=== PATIENT | female | born 1940 | race Caucasian/White ===

== ENCOUNTER 2021-06-22 09:03 | Outpatient (REF) | payer MEDICARE, SELFPAY ==
[2021-06-22 09:35] LABS: MANUAL DIFF FLAG NO
[2021-06-22 09:43] LABS: Basophils Absolute Auto 0.1 X10*3/uL (0.0-0.2); Basophils Percent Auto 0.9 % (0-2); Eosinophils Absolute Auto 0.3 X10*3/uL (0.0-0.4); Eosinophils Percent Auto 4.3 % (0-4); Hematocrit 44.1 % (37.0-47.0); Hemoglobin 14.8 g/dl (12.0-16.0); Imm Gran Abs Auto 0.02 X10*3/uL (0.00-0.03); Imm Gran Pct Auto 0.3 % (0.0-0.4); Lymphocytes Absolute Auto 1.6 X10*3/uL (1.2-4.9); Lymphocytes Percent Auto 22.9 % (20-40); Mean Corpuscular HGB Conc 33.6 g/dl (31.0-35.0); Mean Corpuscular Volume 95.5 fL (80.0-98.0); Mean Platelet Volume 9.6 fL (9.4-12.3); Monocytes Absolute Auto 0.5 X10*3/uL (0.1-1.2); Neutrophils Absolute Auto 4.6 x10*3/uL (2.0-8.3); Neutrophils Percent Auto 64.6 % (45-73); Platelet Count 290 X10*3/uL (160-400); Red Blood Count 4.62 X10*6/uL (4.20-5.50); Red Cell Distribution Width 12.7 % (11.0-16.0)
[2021-06-22 09:53] LABS: Estimated Average Glucose 111 mg/dL; Hemoglobin A1c % 5.5 %
[2021-06-22 10:07] LABS: Anion Gap 12 (12-20); Blood Urea Nitrogen 15 mg/dL (9-16); Carbon Dioxide 30 mmol/L (22-29); Chloride 101 mmol/L (96-108); Potassium 4.5 mmol/L (3.3-5.1); Sodium 138 mmol/L (135-145)
[2021-06-22 10:08] LABS: Alanine Aminotransferase 10 U/L (0-31); Albumin Level 4.1 g/dL (3.5-5.0); Alkaline Phosphatase 68 U/L (39-117); Aspartate Amino Transferase 17 U/L (5-31); Bilirubin Total 0.7 mg/dL (0.0-1.0); Calcium 10.6 mg/dL (8.4-10.2); Cholesterol 185 mg/dL; Estimated Glomerular Filt Rate 56; Glucose Fasting 114 mg/dL (60-99); HDL Cholesterol 48 mg/dL; LDL Cholesterol Calculated 117 mg/dl; Total Protein 6.7 g/dL (6.5-8.0); Triglycerides 102 mg/dL
[2021-06-22 10:27] LABS: TSH reflex Free T4 1.45 uIU/mL (0.32-4.0); Vitamin D 25-OH Total 28.6 ng/mL (>30)
[2021-06-22 10:47] LABS: Appearance Urine HAZY; Color Urine YELLOW; Glucose Urine UA NEG (NEG); Leukocyte Esterase Urine NEG (NEG); Nitrite Urine NEG (NEG); Specific Gravity - Urine 1.025 (1.005-1.025); UACC Culture Trigger NO; Urine Blood 1+ (NEG); Urine Ketones NEG (NEG); Urine Protein TRACE MG/DL (NEG-TRACE)
[2021-06-22 11:00] LABS: WBC Urine 0-2 /HPF (0-4)
[2021-06-22 11:01] LABS: Bacteria Urine 3+ /LPF; Squamous Epithelial Cell Urine 4+ /LPF
[2021-06-22 11:11] LABS: Creatinine Urine 253.24 mg/dL; Microalbum/Creatinine Ratio Ur 19.7 ug/mg cr
== END 2021-06-22 09:04 | disposition home or self-care (01) ==
LOC: HO.LAB 09:03
PROVIDERS: PCP Internal Medicine; Visit Provider Internal Medicine
DX: I10 Essential (primary) hypertension (principal); E78.00 Pure hypercholesterolemia, unspecified; E11.9 Type 2 diabetes mellitus without complications; E55.9 Vitamin D deficiency, unspecified
CPT/HCPCS: 36415; 80053; 80061; 81001; 82043; 82306; 83036; 84443; 85025

== ENCOUNTER 2021-07-29 15:11 | Outpatient (REF) | payer MEDICARE, SELFPAY ==
--- NOTE | ~2021-07-29 | XR_ITS ---
EXAMINATION: XR KNEE, RIGHT CLINICAL INFORMATION: Sprain COMPARISON: None TECHNIQUE: 4 view right knee of the right knee. FINDINGS: There is osteopenia visualized bones. No acute fracture or dislocation is evident. There is narrowing of the medial joint space compartment. There is spurring undersurface of the patella without significant narrowing of the facet joints. There is a small suprapatellar effusion. There is some edematous change seen about the anterior aspect of the distal thigh. XR/XR knee RT 3V IMPRESSION: Mild degenerative change of the right knee involving the medial joint space compartment and patellofemoral joint with small right knee effusion.
== END 2021-07-29 15:12 | disposition home or self-care (01) ==
LOC: HO.XRAY 15:11
PROVIDERS: Visit Provider Internal Medicine
DX: S83.91XA Sprain of unspecified site of right knee, initial encounter (principal)
CPT/HCPCS: 73562

== ENCOUNTER 2022-03-16 08:42 | Outpatient (REF) | payer MEDICARE, SELFPAY ==
--- NOTE | ~2022-03-16 | XR_ITS ---
EXAMINATION: XR HAND, RIGHT CLINICAL INFORMATION: Right finger pain. COMPARISON: None TECHNIQUE: PA, lateral, and oblique views of the right hand. FINDINGS: The bones and soft tissues are normal. No fracture. Alignment is anatomic. There is mild loss of PIP and DIP joints with periarticular spurring 2nd and 3rd digits. No acute fracture or dislocation seen. No soft tissue swelling. XR/XR hand RT min 3V IMPRESSION: Degenerative arthritic changes PIP and DIP joints all digits with periapical spurring DIP joint 2nd and 3rd digits and PIP joint 1st digit.
[2022-03-16 08:57] LABS: MANUAL DIFF FLAG NO
[2022-03-16 09:28] LABS: Basophils Absolute Auto 0.1 X10*3/uL (0.0-0.2); Eosinophils Absolute Auto 0.3 X10*3/uL (0.0-0.4); Eosinophils Percent Auto 4.8 % (0-4); Hematocrit 43.9 % (37.0-47.0); Hemoglobin 14.6 g/dl (12.0-16.0); Imm Gran Abs Auto 0.01 X10*3/uL (0.00-0.03); Imm Gran Pct Auto 0.2 % (0.0-0.4); Lymphocytes Absolute Auto 1.8 X10*3/uL (1.2-4.9); Lymphocytes Percent Auto 28.3 % (20-40); Mean Corpuscular HGB Conc 33.3 g/dl (31.0-35.0); Mean Corpuscular Hemoglobin 31.3 pg (27.0-33.0); Mean Corpuscular Volume 94.2 fL (80.0-98.0); Mean Platelet Volume 10.2 fL (9.4-12.3); Monocytes Absolute Auto 0.4 X10*3/uL (0.1-1.2); Monocytes Percent Auto 5.8 % (2-11); Neutrophils Absolute Auto 3.7 x10*3/uL (2.0-8.3); Neutrophils Percent Auto 59.9 % (45-73); Platelet Count 290 X10*3/uL (160-400); Red Blood Count 4.66 X10*6/uL (4.20-5.50); Red Cell Distribution Width 13.5 % (11.0-16.0); White Blood Count 6.2 X10*3/uL (4.8-10.8)
[2022-03-16 09:31] LABS: Estimated Average Glucose 114 mg/dL; Hemoglobin A1c % 5.6 %
[2022-03-16 09:53] LABS: Alanine Aminotransferase 10 U/L (0-31); Albumin Level 3.9 g/dL (3.5-5.0); Alkaline Phosphatase 56 U/L (39-117); Anion Gap 16 (12-20); Aspartate Amino Transferase 18 U/L (5-31); Bilirubin Total 0.4 mg/dL (0.0-1.0); Blood Urea Nitrogen 10 mg/dL (9-16); Calcium 10.1 mg/dL (8.4-10.2); Carbon Dioxide 26 mmol/L (22-29); Chloride 104 mmol/L (96-108); Cholesterol 221 mg/dL; Estimated Glomerular Filt Rate > 60; Glucose Fasting 98 mg/dL (60-99); HDL Cholesterol 50 mg/dL; LDL Cholesterol Calculated 149 mg/dl; Potassium 3.9 mmol/L (3.3-5.1); Sodium 142 mmol/L (135-145); Total Protein 6.3 g/dL (6.5-8.0); Triglycerides 113 mg/dL
[2022-03-16 10:14] LABS: Free T4 (Free Thyroxine) 0.86 ng/dL (0.71-1.85); Thyroid Stimulating Hormone 26.08 uIU/mL (0.32-4.0); Vitamin D 25-OH Total 27.9 ng/mL (>30)
[2022-03-16 10:44] LABS: Appearance Urine Cloudy; Color Urine Yellow; Glucose Urine UA Negative (Negative); Leukocyte Esterase Urine Trace (Negative); Nitrite Urine Negative (Negative); PH 6.5 (5.0-9.0); Specific Gravity - Urine 1.015 (1.005-1.025); UMIC TRIGGER UACC YES; Urine Blood Trace (Negative); Urine Ketones Negative (Negative); Urine Protein Trace mg/dL (Neg-Trace)
[2022-03-16 10:46] LABS: Bacteria Urine 2+ (None Seen); Hyaline Casts Urine 0-2 /LPF (0-2); Squamous Epithelial Cell Urine >20 /HPF (0-2); WBC Urine 0-5 /HPF (0-5)
[2022-03-16 11:36] LABS: Microalbum/Creatinine Ratio Ur 18.2 ug/mg cr
== END 2022-03-16 08:43 | disposition home or self-care (01) ==
LOC: HO.LAB 08:42
PROVIDERS: PCP Internal Medicine; Visit Provider Internal Medicine
DX: I10 Essential (primary) hypertension (principal); E11.9 Type 2 diabetes mellitus without complications; E03.9 Hypothyroidism, unspecified; E78.00 Pure hypercholesterolemia, unspecified; E55.9 Vitamin D deficiency, unspecified; M79.644 Pain in right finger(s)
CPT/HCPCS: 36415; 73130; 80053; 80061; 81001; 82043; 82306; 83036; 84439; 84443; 85025

== ENCOUNTER 2022-08-05 08:22 | Outpatient (REF) | payer MEDICARE, SELFPAY ==
[2022-08-05 08:41] LABS: MANUAL DIFF FLAG NO
[2022-08-05 09:24] LABS: Basophils Absolute Auto 0.1 X10*3/uL (0.0-0.2); Basophils Percent Auto 1.6 % (0-2); Eosinophils Absolute Auto 0.4 X10*3/uL (0.0-0.4); Eosinophils Percent Auto 5.4 % (0-4); Hematocrit 45.4 % (37.0-47.0); Hemoglobin 15.2 g/dl (12.0-16.0); Imm Gran Abs Auto 0.02 X10*3/uL (0.00-0.03); Imm Gran Pct Auto 0.3 % (0.0-0.4); Lymphocytes Absolute Auto 2.1 X10*3/uL (1.2-4.9); Lymphocytes Percent Auto 29.9 % (20-40); Mean Corpuscular HGB Conc 33.5 g/dl (31.0-35.0); Mean Corpuscular Hemoglobin 32.1 pg (27.0-33.0); Mean Platelet Volume 10.3 fL (9.4-12.3); Monocytes Absolute Auto 0.5 X10*3/uL (0.1-1.2); Monocytes Percent Auto 6.7 % (2-11); Neutrophils Absolute Auto 3.8 x10*3/uL (2.0-8.3); Neutrophils Percent Auto 56.1 % (45-73); Platelet Count 296 X10*3/uL (160-400); Red Blood Count 4.73 X10*6/uL (4.20-5.50); Red Cell Distribution Width 14.3 % (11.0-16.0); White Blood Count 6.9 X10*3/uL (4.8-10.8)
[2022-08-05 09:31] LABS: Estimated Average Glucose 114 mg/dL; Hemoglobin A1C 150.2598 umol/L; Hemoglobin A1c % 5.6 %
[2022-08-05 10:01] LABS: Alanine Aminotransferase 12 U/L (0-31); Alkaline Phosphatase 65 U/L (39-117); Anion Gap 15 (12-20); Aspartate Amino Transferase 21 U/L (5-31); Bilirubin Total 0.7 mg/dL (0.0-1.0); Blood Urea Nitrogen 9 mg/dL (9-16); Calcium 9.7 mg/dL (8.4-10.2); Carbon Dioxide 27 mmol/L (22-29); Chloride 105 mmol/L (96-108); Cholesterol 193 mg/dL; Estimated Glomerular Filt Rate > 60; Glucose Fasting 109 mg/dL (60-99); HDL Cholesterol 50 mg/dL; LDL Cholesterol Calculated 125 mg/dl; Sodium 143 mmol/L (135-145); Total Protein 6.5 g/dL (6.5-8.0); Triglycerides 93 mg/dL
[2022-08-05 10:18] LABS: Free T4 (Free Thyroxine) 1.16 ng/dL (0.71-1.85); Thyroid Stimulating Hormone 5.79 uIU/mL (0.32-4.0); Vitamin D 25-OH Total 29.1 ng/mL (>30)
== END 2022-08-05 08:23 | disposition home or self-care (01) ==
LOC: HO.LAB 08:22
PROVIDERS: PCP Internal Medicine; Visit Provider Internal Medicine
DX: E03.9 Hypothyroidism, unspecified (principal); E55.9 Vitamin D deficiency, unspecified; E78.00 Pure hypercholesterolemia, unspecified; I10 Essential (primary) hypertension; E11.9 Type 2 diabetes mellitus without complications
CPT/HCPCS: 36415; 80053; 80061; 82306; 83036; 84439; 84443; 85025

== ENCOUNTER 2022-11-29 09:14 | Outpatient (REF) | payer MEDICARE, SELFPAY ==
[2022-11-29 09:33] LABS: MANUAL DIFF FLAG NO
[2022-11-29 10:49] LABS: Basophils Absolute Auto 0.1 X10*3/uL (0.0-0.2); Basophils Percent Auto 1.1 % (0-2); Eosinophils Absolute Auto 0.3 X10*3/uL (0.0-0.4); Eosinophils Percent Auto 4.4 % (0-4); Hematocrit 46.8 % (37.0-47.0); Hemoglobin 15.3 g/dl (12.0-16.0); Imm Gran Abs Auto 0.02 X10*3/uL (0.00-0.03); Imm Gran Pct Auto 0.3 % (0.0-0.4); Lymphocytes Absolute Auto 2.2 X10*3/uL (1.2-4.9); Lymphocytes Percent Auto 30.3 % (20-40); Mean Corpuscular HGB Conc 32.7 g/dl (31.0-35.0); Mean Corpuscular Hemoglobin 31.5 pg (27.0-33.0); Mean Corpuscular Volume 96.5 fL (80.0-98.0); Mean Platelet Volume 10.3 fL (9.4-12.3); Monocytes Absolute Auto 0.4 X10*3/uL (0.1-1.2); Monocytes Percent Auto 5.9 % (2-11); Neutrophils Absolute Auto 4.1 x10*3/uL (2.0-8.3); Platelet Count 274 X10*3/uL (160-400); Red Blood Count 4.85 X10*6/uL (4.20-5.50); Red Cell Distribution Width 13.2 % (11.0-16.0); White Blood Count 7.1 X10*3/uL (4.8-10.8)
[2022-11-29 10:54] LABS: Estimated Average Glucose 105 mg/dL; Hemoglobin A1c % 5.3 %
[2022-11-29 12:20] LABS: Alanine Aminotransferase 11 U/L (0-31); Albumin Level 3.9 g/dL (3.5-5.0); Alkaline Phosphatase 59 U/L (39-117); Anion Gap 12 (12-20); Aspartate Amino Transferase 19 U/L (5-31); Bilirubin Total 0.7 mg/dL (0.0-1.0); Blood Urea Nitrogen 9 mg/dL (9-16); Calcium 9.8 mg/dL (8.4-10.2); Carbon Dioxide 28 mmol/L (22-29); Chloride 104 mmol/L (96-108); Cholesterol 162 mg/dL; Estimated Glomerular Filt Rate > 60; Glucose Fasting 99 mg/dL (60-99); HDL Cholesterol 47 mg/dL; LDL Cholesterol Calculated 96 mg/dl; Potassium 3.7 mmol/L (3.3-5.1); Sodium 140 mmol/L (135-145); Total Protein 6.7 g/dL (6.5-8.0); Triglycerides 98 mg/dL
[2022-11-29 12:27] LABS: Free T4 (Free Thyroxine) 1.18 ng/dL (0.71-1.85); Thyroid Stimulating Hormone 5.98 uIU/mL (0.32-4.0); Vitamin D 25-OH Total 38.4 ng/mL (>30)
[2022-11-29 13:12] LABS: Appearance Urine Cloudy; Color Urine Yellow; Glucose Urine UA Negative (Negative); Leukocyte Esterase Urine Negative (Negative); Nitrite Urine Negative (Negative); PH >= 9.0 (5.0-9.0); Urine Blood Negative (Negative); Urine Ketones Negative (Negative); Urine Protein Negative (Neg-Trace)
== END 2022-11-29 09:15 | disposition home or self-care (01) ==
LOC: HO.LAB 09:14
PROVIDERS: PCP Internal Medicine; Visit Provider Internal Medicine
DX: E55.9 Vitamin D deficiency, unspecified (principal); I10 Essential (primary) hypertension; E03.9 Hypothyroidism, unspecified; R30.0 Dysuria; E11.9 Type 2 diabetes mellitus without complications; E78.00 Pure hypercholesterolemia, unspecified
CPT/HCPCS: 36415; 80053; 80061; 81003; 82306; 83036; 84439; 84443; 85025

== ENCOUNTER 2023-04-03 10:19 | Outpatient (REF) | payer MEDICARE, SELFPAY ==
[2023-04-03 10:43] LABS: MANUAL DIFF FLAG NO
[2023-04-03 11:10] LABS: Basophils Absolute Auto 0.1 X10*3/uL (0.0-0.2); Eosinophils Absolute Auto 0.3 X10*3/uL (0.0-0.4); Eosinophils Percent Auto 4.3 % (0-4); Hematocrit 45.8 % (37.0-47.0); Imm Gran Abs Auto 0.01 X10*3/uL (0.00-0.03); Imm Gran Pct Auto 0.1 % (0.0-0.4); Lymphocytes Absolute Auto 2.1 X10*3/uL (1.2-4.9); Lymphocytes Percent Auto 27.8 % (20-40); Mean Corpuscular HGB Conc 32.8 g/dl (31.0-35.0); Mean Corpuscular Hemoglobin 31.8 pg (27.0-33.0); Mean Platelet Volume 10.6 fL (9.4-12.3); Monocytes Absolute Auto 0.4 X10*3/uL (0.1-1.2); Monocytes Percent Auto 5.6 % (2-11); Neutrophils Absolute Auto 4.7 x10*3/uL (2.0-8.3); Neutrophils Percent Auto 61.2 % (45-73); Platelet Count 254 X10*3/uL (160-400); Red Blood Count 4.72 X10*6/uL (4.20-5.50); Red Cell Distribution Width 12.9 % (11.0-16.0); White Blood Count 7.7 X10*3/uL (4.8-10.8)
[2023-04-03 11:18] LABS: Estimated Average Glucose 108 mg/dL; Hemoglobin A1c % 5.4 % (<6.0)
[2023-04-03 11:54] LABS: Appearance Urine Clear; Color Urine Yellow; Glucose Urine UA Negative (Negative); Leukocyte Esterase Urine Negative (Negative); Nitrite Urine Negative (Negative); PH 7.5 (5.0-9.0); Specific Gravity - Urine 1.015 (1.005-1.025); Urine Blood Negative (Negative); Urine Ketones Negative (Negative); Urine Protein Negative (Neg-Trace)
[2023-04-03 11:56] LABS: B Type Natriuretic Peptide 105 pg/mL (<100)
[2023-04-03 11:57] LABS: Alanine Aminotransferase 11 U/L (0-31); Albumin Level 3.9 g/dL (3.5-5.0); Alkaline Phosphatase 55 U/L (39-117); Anion Gap 12 (12-20); Aspartate Amino Transferase 18 U/L (5-31); Bilirubin Total 0.4 mg/dL (0.0-1.0); Blood Urea Nitrogen 17 mg/dL (9-16); Calcium 9.8 mg/dL (8.4-10.2); Carbon Dioxide 27 mmol/L (22-29); Chloride 104 mmol/L (96-108); Estimated Glomerular Filt Rate > 60; Glucose Fasting 102 mg/dL (60-99); Potassium 3.5 mmol/L (3.3-5.1); Sodium 139 mmol/L (135-145); Total Protein 6.6 g/dL (6.5-8.0)
[2023-04-03 12:15] LABS: Free T4 (Free Thyroxine) 1.21 ng/dL (0.71-1.85); Thyroid Stimulating Hormone 0.63 uIU/mL (0.32-4.0); Vitamin D 25-OH Total 34.5 ng/mL (>30)
== END 2023-04-03 10:20 | disposition home or self-care (01) ==
LOC: HO.LAB 10:19
PROVIDERS: PCP Internal Medicine; Visit Provider Internal Medicine
DX: R30.0 Dysuria (principal); E03.9 Hypothyroidism, unspecified; R60.9 Edema, unspecified; I10 Essential (primary) hypertension; E78.00 Pure hypercholesterolemia, unspecified; E55.9 Vitamin D deficiency, unspecified; E11.9 Type 2 diabetes mellitus without complications
CPT/HCPCS: 36415; 80053; 81003; 82306; 83036; 83880; 84439; 84443; 85025

== ENCOUNTER 2023-04-12 12:14 | Outpatient (AMB) | payer MEDICARE, SELFPAY ==
[2023-04-12 12:16] VITALS: BP 120/84; PULSE 60; O2SAT 98; BMI 35.1
--- NOTE | 2023-04-12 12:16 | A.OFFPC_ITS ---
Vital Signs 04/12/23 12:16 Height 5 ft 6 in Weight 217 lb 4 oz BMI 35.1 BP 120/84 Blood Pressure Location Lt brachial Position Sitting Pulse 60 Pulse Source Pulse Oximeter Pulse Oximetry (%) 98 Oxygen Delivery Method Room Air Intake Visit Reasons: F/Up hyperlipidemia, HTN, hypothyroidism Freight Rate Clerk Required: No Accompanied by: Self / Same As Patient Allergies acetaminophen [Percocet] Allergy (Unknown, Verified 04/12/23 12:30) Unknown oxycodone [Percocet] Allergy (Unknown, Verified 04/12/23 12:30) Unknown penicillin V Allergy (Unknown, Verified 04/12/23 12:30) Unknown Medication List - Last Reconciled 04/12/23 by Hector Phelps MD cholecalciferol (vitamin D3) 50 mcg PO DAILY 90 days levothyroxine 125 mcg PO QAM 90 days lisinopril 5 mg PO DAILY 90 days simvastatin 20 mg PO BEDTIME 90 days terconazole 0.4% 1 appful vaginal BEDTIME 7 days triamterene-hydrochlorothiazid 75-50 mg 0.5 tabs PO QAM 90 days Tobacco use date assessed: 04/12/23 Fall risk assessment: No Falls in past year Last assessed Fall Risk: 04/12/23 Dental Screening Dental Screen Date: 04/12/23 Did you have a dental visit in the last 12 months?: No Did you have a dental problem in the last 6 months where you did not have access to dental care?: No Was dental information given to patient?: No HPI F/Up hyperlipidemia, HTN, hypothyroidism HPI Details Patient comes in today for her follow up visit States that she feels okay She denies any headaches or dizziness Denies any chest pains, no SOB No nausea/vomiting, no abdominal pain No change in bowel habits noted Had her follow up labs done last week - to discuss her results States that her daughter helps her now with her meals and cooks most of her meals and prepares her food for her [facility] Medical History Memory loss or impairment Obesity (BMI 30-39.9) Obstructive sleep apnea Acquired hypothyroidism Benign essential hypertension Pure hypercholesterolemia Vitamin D deficiency Hypothyroidism Hyperlipidemia Diabetes mellitus Hypertension Surgical History History of tonsillectomy History of laparoscopic cholecystectomy Family History Father Medical history unknown Mother Medical history unknown Other Substance abuse Social History Housing: Apartment Alcohol intake: current Alcohol intake frequency: 0-2 drinks per day Alcohol type: wine Patient Tobacco Use Status: Former Tobacco user e-Cigarette/Vaping Use: Never Used Second Hand Smoke Exposure: Yes service: No Current occupational status: retired Cognitive needs: No Hearing needs: No Vision needs: No Questionnaire PHQ-9 Over the last 2 weeks, how often have you been bothered by any of the following problems? 1. Little interest or pleasure in doing things: not at all 2. Feeling down, depressed, or hopeless: not at all 3. Trouble falling or staying asleep, or sleeping too much: not at all 4. Feeling tired or having little energy: not at all 5. Poor appetite or overeating: not at all 6. Feeling bad about yourself - or that you are a failure or have let yourself or your family down: not at all 7. Trouble concentrating on things, such as reading the newspaper or watching television: not at all 8. Moving or speaking so slowly that other people could have noticed. Or the opposite - being so fidgety or restless that you have been moving around a lot more than usual: not at all 9. Thoughts that you would be better off or of hurting yourself in some way: not at all Total score: 0 Depression Screening Interpretation: Negative Depression Screening Done: Yes [id number] - PHQ-9 Billing: Yes Source: Developed by Drs. Mario Thomas, Soni Guthrie, Adrian Villa and colleagues, with an educational suraj from [employer]. Thrive Questionnaire Date Thrive assessed: 04/12/23 I am a: Patient Within the past 12 months, did the food you bought not last and you didn't have the money to get more?: Never true Within the past 12 months, did you worry whether your food would run out before you got money to buy more?: Never true Do you have trouble paying for medicines?: No Do you have trouble getting transportation to medical appointments?: No Do you have trouble paying your heating and electricity bill?: No Do you have trouble taking care of your child, family member or friend?: No Do you have trouble with day-to-day activities such as bathing, preparing meals, shopping, managing finances, etc.?: No Are you currently unemployed and looking for a job?: No Are you interested in more education?: No Please select the resources that you would like help with: None Currently or been in a relationship where the following occur: no concerns reported AUDIT C Alcohol Use Questionnaire (AUDIT-C) 1. How often do you have a drink containing alcohol?: 4 or more times a week 2. How many drinks containing alcohol do you have on a typical day when you are drinking?: 1 or 2 3. How often do you have six or more drinks on one occasion?: Never Total Score: 4 Score Reviewed/Action Taken: Yes DILLON-7 AMB Questionnaire DILLON-7 Date DILLON - 7 assessed: 04/12/23 Feeling nervous, anxious, or on edge: 0 = Not at all Not being able to stop or control worryin = Not at all Worrying too much about different things: 0 = Not at all Trouble relaxin = Not at all Being so restless that it is hard to sit still: 0 = Not at all Becoming easily annoyed or irritable: 0 = Not at all Feeling afraid as if something awful might happen: 0 = Not at all Total DILLON-7 score (0-4 normal; 5-9 mild; 10-14 moderate; 15-21 severe): 0 Source: Developed by Drs. Mario Thomas, Soni Guthrie, Adrian Villa and colleagues, with an educational suraj from [employer]. Review of Systems Const Denies chills, Denies fatigue, Denies fever(s) and Denies headache(s) ENT Denies dysphagia, Denies dizziness, Denies otalgia, Denies headache(s), Denies odynophagia and Denies sore throat Card Denies chest pain, Denies palpitations and Denies dyspnea Resp Denies cough and Denies dyspnea GI Denies abdominal pain, Denies constipation, Denies dysphagia, Denies heartburn, Denies diarrhea, Denies nausea, Denies odynophagia and Denies vomiting Denies difficulty voiding, Denies nocturia and Denies dysuria Musc Reports arthralgias (on and off over the right knee) and Denies joint swelling Neuro Denies dizziness, Denies headache(s) and Reports memory loss (on and off, per patient's daughter) Psych Reports memory loss (on and off, per patient's daughter) Endo Denies fatigue and Denies palpitations Suresh/Lymph Details: on and off swelling of her lower legs and feet lately Physical exam (Primary Care) Vital Signs: Last Vital Signs Pulse 60 04/12/23 12:16 BP 120/84 04/12/23 12:16 Pulse Ox 98 04/12/23 12:16 Oxygen Delivery Method Room Air 04/12/23 12:16 BMI result Body Mass Index 35.1 Tobacco/Smoking Status: Tobacco use Status Tobacco use date assessed 04/12/23 04/12/23 12:23 Patient Tobacco Use Status Former Tobacco user 04/12/23 12:23 e-Cigarette/Vaping Use Never Used 04/12/23 12:23 PHQ-9: PHQ-9 Score PHQ-9: Total score 0 04/12/23 12:32 Depression Screening Interpretation: Negative Thrive Assessment: Date of Thrive Assessment Date Thrive assessed 04/12/23 04/12/23 12:23 Currently or been in a relationship where the following occur: no concerns reported Const General: no acute distress and alert HENMT Ears: TM's normal bilaterally and EAC's normal Throat: Yes posterior oropharynx normal and Yes tonsils normal (no TP congestion noted) Neck Neck: Yes no lymphadenopathy and Yes supple Resp Auscultation: clear to auscultation bilaterally, no rales and no wheezes Cardio Rate: regular rate Rhythm: regular rhythm Heart sounds: no murmurs GI Palpation (GI): Soft to palpation and nontender Auscultation: normal bowel sounds Extrem General: No clubbing, No cyanosis and Yes pedal edema (1+ bipedal edema noted) Right lower extremity: knee Details: tenderness Location: of the medial joint line and of the infrapatellar area; no swelling Results Reviewed Results Reviewed: Laboratory Tests 11/29/22 04/03/23 04/03/23 09:31 10:34 10:34 WBC Hgb Hct Plt Count Sodium Potassium Creatinine Estimated GFR Fasting Glucose Hemoglobin A1c % Calcium AST ALT B-Natriuretic Peptide Triglycerides 98 Cholesterol 162 LDL Cholesterol, Calc 96 HDL Cholesterol 47 25-OH Vitamin D Total TSH Free T4 Ur Specific [place] 1.015 Urine Protein Negative Urine Glucose (UA) Negative Urine Blood Negative 04/03/23 04/03/23 04/03/23 10:41 10:41 10:41 WBC 7.7 Hgb 15.0 Hct 45.8 Plt Count 254 Sodium 139 Potassium 3.5 Creatinine 0.73 Estimated GFR Fasting Glucose 102 H Hemoglobin A1c % 5.4 Calcium 9.8 AST 18 ALT 11 B-Natriuretic Peptide 105 H Triglycerides Cholesterol LDL Cholesterol, Calc HDL Cholesterol 25-OH Vitamin D Total 34.5 TSH 0.63 Free T4 1.21 Ur Specific [place] Urine Protein Urine Glucose (UA) Urine Blood 04/03/23 10:41 WBC Hgb Hct Plt Count Sodium Potassium Creatinine Estimated GFR > 60 Fasting Glucose Hemoglobin A1c % Calcium AST ALT B-Natriuretic Peptide Triglycerides Cholesterol LDL Cholesterol, Calc HDL Cholesterol 25-OH Vitamin D Total TSH Free T4 Ur Specific [place] Urine Protein Urine Glucose (UA) Urine Blood Assessment and Plan Assessment & Plan (1) Pure hypercholesterolemia: Code(s): E78.00 - Pure hypercholesterolemia, unspecified Plan: Results of her labs done last week reviewed and discussed with patient - lipids have improved further from previous Reinforced low cholesterol diet Continue Simvastatin 20 mg QD Will recheck her labs and fasting lipids in 4 months for follow up (2) Acquired hypothyroidism: Code(s): E03.9 - Hypothyroidism, unspecified Plan: Her TFTs are normal on her recent labs; patient is currently clinically euthyroid Continue Levothyroxine 125 mcg QD Will recheck her TFTs in 4 months (3) Benign essential hypertension: Code(s): I10 - Essential (primary) hypertension Plan: Reinforced low sodium diet - goal is systolic BP of at least 130 to 140 mm or less Continue Triamterene-HCT 75-50 mg 1/2 tablet QD and Lisinopril 5 mg QD (4) Diabetes mellitus: Code(s): E11.9 - Type 2 diabetes mellitus without complications Qualifiers: Diabetes mellitus complication status: without complication Diabetes mellitus intermediate designer insulin use: without intermediate use Diabetes mellitus type: type 2 Qualified Code(s): E11.9 - Type 2 diabetes mellitus without complications Plan: HgbA1c was at 5.4% on her labs done last week (was previously at 5.3% a few months ago) - goal is < 7.0% Reinforced diabetic diet Patient has not required any Rx for her diabetes and has been able to keep her blood sugar controlled with diet modification alone so far (5) Vitamin D deficiency: Code(s): E55.9 - Vitamin D deficiency, unspecified Plan: Continue Vitamin D3 2000 units QD (6) Obstructive sleep apnea: Code(s): G47.33 - Obstructive sleep apnea (adult) (pediatric) Plan: Patient has used her CPAP device in the past with good results but states that she has not needed to use her device in a few years now - feels that she sleeps well at night and does not have any symptoms of daytime fatigue or somnolence and would rather not go back on it (7) Edema: Code(s): R60.9 - Edema, unspecified Qualifiers: Edema type: unspecified Qualified Code(s): R60.9 - Edema, unspecified Plan: Involving primarily both lower legs and feet, on and off Advised again that her recurrent pedal edema is most likely due to stasis and the effects of gravity She ie reminded to try keeping her legs and feet elevated as often as she can throughout the day to help minimize her edema She is already on Dyazide - advised that her diuretics should help keep her e kenny from increasing significantly, and that wearing support/compression stockings can help with her edema - they should be easier to tolerate now with the onset recently of cooler weather (8) Osteoarthritis of hands, bilateral: Code(s): M19.041 - Primary osteoarthritis, right hand; M19.042 - Primary osteoarthritis, left hand Qualifiers: Osteoarthritis type: primary Qualified Code(s): M19.041 - Primary osteoarthritis, right hand; M19.042 - Primary osteoarthritis, left hand Plan: X-rays of the hands done on 03/16/22 revealed degenerative arthritic changes of the PIP and DIP joints of all digits, with periapical spurring at the DIP joint of the 2nd and 3rd digits and PIP joint of the 1st digit Continue Tramadol 50 mg TID PRN for pain Patient is advised again to continue with regular hand exercises to help minimize her stiffness and pain (9) Memory loss or impairment: Code(s): R41.3 - Other amnesia Plan: Most likely due to cognitive impairment or early dementia related to her age Recommend referral to neurology, especially if symptoms get worse; patient would like to continue to hold off on neurology referral at this time Her daughter states that she will call for referral if patient's mental status/confusion gets worse (10) Obesity (BMI 30-39.9): Code(s): E66.9 - Obesity, unspecified Plan: Reinforced diet/exercise as tolerated/lose weight Plan Follow up in 4 months Orders: Orders Comprehensive [place]. Panel Fast 4 Months E78.00 - Pure hypercholesterolemia, unspecified Complete Blood Count Auto Diff 4 Months I10 - Essential (primary) hypertension Vitamin D 25-OH Total 4 Months E55.9 - Vitamin D deficiency, unspecified Lipid Panel 4 Months E78.00 - Pure hypercholesterolemia, unspecified Thyroid Stimulating Hormone 4 Months E03.9 - Hypothyroidism, unspecified Free T4 (Free Thyroxine) 4 Months E03.9 - Hypothyroidism, unspecified Coding Level of Care Code Est Pt Level 4 (87325) Diagnoses Pure hypercholesterolemia E78.00 Acquired hypothyroidism E03.9 Benign essential hypertension I10 Type 2 diabetes mellitus without complication, without long-term current use of insulin E11.9 Diabetes mellitus complication status: without complication Diabetes mellitus intermediate insulin use: without intermediate designer use Diabetes mellitus type: type 2 Vitamin D deficiency E55.9 Obstructive sleep apnea G47.33 Edema, unspecified type R60.9 Edema type: unspecified Primary osteoarthritis of both hands M19.041; M19.042 Osteoarthritis type: primary Memory loss or impairment R41.3 Obesity (BMI 30-39.9) E66.9
== END 2023-04-12 12:47 | disposition home or self-care (01) ==
PROVIDERS: PCP Internal Medicine; Visit Provider Internal Medicine
DX: E78.00 Pure hypercholesterolemia, unspecified (principal); E03.9 Hypothyroidism, unspecified; I10 Essential (primary) hypertension; E11.9 Type 2 diabetes mellitus without complications; E55.9 Vitamin D deficiency, unspecified; G47.33 Obstructive sleep apnea (adult) (pediatric); R60.9 Edema, unspecified; M19.041 Primary osteoarthritis, right hand; M19.042 Primary osteoarthritis, left hand; R41.3 Other amnesia; E66.9 Obesity, unspecified
CPT/HCPCS: 99214

== ENCOUNTER 2023-08-29 09:36 | Outpatient (REF) | payer MEDICARE, SELFPAY ==
[2023-08-29 10:01] LABS: MANUAL DIFF FLAG NO
[2023-08-29 10:17] LABS: Basophils Absolute Auto 0.1 X10*3/uL (0.0-0.2); Basophils Percent Auto 0.7 % (0-2); Eosinophils Absolute Auto 0.2 X10*3/uL (0.0-0.4); Eosinophils Percent Auto 2.7 % (0-4); Hemoglobin 14.9 g/dl (12.0-16.0); Imm Gran Abs Auto 0.02 X10*3/uL (0.00-0.03); Imm Gran Pct Auto 0.3 % (0.0-0.4); Lymphocytes Percent Auto 27.8 % (20-40); Mean Corpuscular HGB Conc 33.9 g/dl (31.0-35.0); Mean Corpuscular Hemoglobin 31.8 pg (27.0-33.0); Mean Corpuscular Volume 93.8 fL (80.0-98.0); Mean Platelet Volume 9.9 fL (9.4-12.3); Monocytes Absolute Auto 0.4 X10*3/uL (0.1-1.2); Monocytes Percent Auto 5.9 % (2-11); Neutrophils Absolute Auto 4.6 x10*3/uL (2.0-8.3); Neutrophils Percent Auto 62.6 % (45-73); Platelet Count 293 X10*3/uL (160-400); Red Blood Count 4.69 X10*6/uL (4.20-5.50); Red Cell Distribution Width 12.8 % (11.0-16.0); White Blood Count 7.3 X10*3/uL (4.8-10.8)
[2023-08-29 11:10] LABS: Alanine Aminotransferase 8 U/L (0-31); Albumin Level 3.9 g/dL (3.5-5.0); Alkaline Phosphatase 59 U/L (39-117); Anion Gap 11 (12-20); Aspartate Amino Transferase 16 U/L (5-31); Bilirubin Total 0.6 mg/dL (0.0-1.0); Blood Urea Nitrogen 8 mg/dL (9-16); Calcium 10.2 mg/dL (8.4-10.2); Carbon Dioxide 31 mmol/L (22-29); Chloride 102 mmol/L (96-108); Cholesterol 155 mg/dL (<200); Estimated Glomerular Filt Rate > 60; Glucose Fasting 112 mg/dL (60-99); HDL Cholesterol 47 mg/dL (>40); LDL Cholesterol Calculated 93 mg/dL (<100); Potassium 4.2 mmol/L (3.3-5.1); Sodium 140 mmol/L (135-145); Total Protein 6.7 g/dL (6.5-8.0); Triglycerides 75 mg/dL (<150)
[2023-08-29 11:13] LABS: Free T4 (Free Thyroxine) 1.79 ng/dL (0.71-1.85); Vitamin D 25-OH Total 33.6 ng/mL (>30)
== END 2023-08-29 09:37 | disposition home or self-care (01) ==
LOC: HO.LAB 09:36
PROVIDERS: PCP Internal Medicine; Visit Provider Internal Medicine
DX: I10 Essential (primary) hypertension (principal); E03.9 Hypothyroidism, unspecified; E78.00 Pure hypercholesterolemia, unspecified; E55.9 Vitamin D deficiency, unspecified
CPT/HCPCS: 36415; 80053; 80061; 82306; 84439; 84443; 85025

== ENCOUNTER 2023-08-31 13:21 | Outpatient (AMB) | payer MEDICARE, SELFPAY ==
--- NOTE | 2023-08-31 13:35 | A.OFFPC_ITS ---
Vital Signs 08/31/23 13:39 Height 5 ft 6 in Weight 216 lb 6 oz BMI 34.9 BP 110/62 Blood Pressure Location Lt brachial Position Sitting Pulse 57 Pulse Source Pulse Oximeter Pulse Oximetry (%) 97 Oxygen Delivery Method Room Air Intake Visit Reasons: hyperlipidemia, HTN, hypothyroidism Intake Note: Patient is here to follow up on HTN, Hyperlipidemia, Hypothyroidism. Administrative Services Specialist Required: No Medical Grade Shoemaker: Present Accompanied by: Daughter Allergies acetaminophen [Percocet] Allergy (Unknown, Verified 08/31/23 14:06) Unknown oxycodone [Percocet] Allergy (Unknown, Verified 08/31/23 14:06) Unknown penicillin V Allergy (Unknown, Verified 08/31/23 14:06) Unknown Medication List - Last Reconciled 08/31/23 by Hector Phelps MD cholecalciferol (vitamin D3) 50 mcg PO DAILY 90 days levothyroxine 125 mcg PO QAM 90 days lisinopril 5 mg PO DAILY 90 days simvastatin 20 mg PO BEDTIME 90 days triamterene-hydrochlorothiazid 75-50 mg 0.5 tabs PO QAM 90 days Tobacco use date assessed: 08/31/23 Fall risk assessment: No Falls in past year Last assessed Fall Risk: 08/31/23 Dental Screening Dental Screen Date: 08/31/23 Did you have a dental visit in the last 12 months?: No Did you have a dental problem in the last 6 months where you did not have access to dental care?: No Was dental information given to patient?: No (Dentures) HPI hyperlipidemia, HTN, hypothyroidism HPI Details Patient comes in today for her follow up visit States that she feels okay She denies any headaches or dizziness Denies any chest pains, no SOB No nausea/vomiting, no abdominal pain No change in bowel habits noted Had her follow up labs done a couple of days ago - to discuss her results Her daughter states that patient gave up her meals on wheels driver's license and is no longer driving [facility] Medical History Memory loss or impairment Obesity (BMI 30-39.9) Obstructive sleep apnea Acquired hypothyroidism Benign essential hypertension Pure hypercholesterolemia Vitamin D deficiency Hypothyroidism Hyperlipidemia Diabetes mellitus Hypertension Surgical History History of biopsy History of tonsillectomy History of laparoscopic cholecystectomy Family History Father Medical history unknown Mother Medical history unknown Other Substance abuse Social History Housing: Apartment Alcohol intake: current Alcohol intake frequency: 0-2 drinks per day Alcohol type: wine Patient Tobacco Use Status: Former Tobacco user e-Cigarette/Vaping Use: Never Used Second Hand Smoke Exposure: Yes service: No Current occupational status: retired Cognitive needs: No Hearing needs: No Vision needs: No Questionnaire PHQ-9 Over the last 2 weeks, how often have you been bothered by any of the following problems? 1. Little interest or pleasure in doing things: not at all 2. Feeling down, depressed, or hopeless: not at all 3. Trouble falling or staying asleep, or sleeping too much: not at all 4. Feeling tired or having little energy: not at all 5. Poor appetite or overeating: not at all 6. Feeling bad about yourself - or that you are a failure or have let yourself or your family down: not at all 7. Trouble concentrating on things, such as reading the newspaper or watching television: not at all 8. Moving or speaking so slowly that other people could have noticed. Or the opposite - being so fidgety or restless that you have been moving around a lot more than usual: not at all 9. Thoughts that you would be better off or of hurting yourself in some way : not at all Total score: 0 Depression Screening Interpretation: Negative Depression Screening Done: Yes [id number] - PHQ-9 Billing: Yes Source: Developed by Drs. Mario Thomas, Soni Guthrie, Adrian Villa and colleagues, with an educational suraj from [employer]. Thrive Questionnaire Date Thrive assessed: 08/31/23 I am a: Patient What is your living situation today?: I have a steady place to live Within the past 12 months, did the food you bought not last and you didn't have the money to get more?: Never true Within the past 12 months, did you worry whether your food would run out before you got money to buy more?: Never true Do you have trouble paying for medicines?: No Do you have trouble getting transportation to medical appointments?: No Do you have trouble paying your heating and electricity bill?: No Do you have trouble taking care of your child, family member or friend?: No Do you have trouble with day-to-day activities such as bathing, preparing meals, shopping, managing finances, etc.?: No Are you currently unemployed and looking for a job?: No Are you interested in more education?: No Currently or been in a relationship where the following occur: no concerns reported THRIVE Score: 0 AUDIT C Alcohol Use Questionnaire (AUDIT-C) 1. How often do you have a drink containing alcohol?: 2-4 times a month 2. How many drinks containing alcohol do you have on a typical day when you are drinking?: 1 or 2 Total Score: 2 Score Reviewed/Action Taken: Yes DILLON-7 AMB Questionnaire DILLON-7 Date DILLON - 7 assessed: 08/31/23 Feeling nervous, anxious, or on edge: 0 = Not at all Not being able to stop or control worryin = Not at all Worrying too much about different things: 0 = Not at all Trouble relaxin = Not at all Being so restless that it is hard to sit still: 0 = Not at all Becoming easily annoyed or irritable: 0 = Not at all Feeling afraid as if something awful might happen: 0 = Not at all Total DILLON-7 score (0-4 normal; 5-9 mild; 10-14 moderate; 15-21 severe): 0 Source: Developed by Drs. Mario Thomas, Soni Guthrie, Adrian Villa and colleagues, with an educational suraj from [employer]. Review of Systems Const Denies chills, Denies fatigue, Denies fever(s) and Denies headache(s) ENT Denies dysphagia, Denies dizziness, Denies otalgia, Denies headache(s), Denies neck pain, Denies odynophagia and Denies sore throat Card Denies chest pain, Denies palpitations and Denies dyspnea Resp Denies cough and Denies dyspnea GI Denies abdominal pain, Denies constipation, Denies dysphagia, Denies heartburn, Denies diarrhea, Denies nausea, Denies odynophagia and Denies vomiting Denies difficulty voiding, Denies nocturia, Denies dysuria and Denies urinary urgency Musc Reports arthralgias (on and off over the right knee), Denies joint swelling and Denies neck pain Skin/Breast Denies rash Neuro Denies dizziness, Denies headache(s) and Reports memory loss (on and off, per patient's daughter) Psych Reports memory loss (on and off, per patient's daughter) Endo Denies fatigue and Denies palpitations Suresh/Lymph Details: on and off swelling of her lower legs and feet lately Physical exam (Primary Care) Vital Signs: Last Vital Signs Pulse 57 08/31/23 13:39 BP 110/62 08/31/23 13:39 Pulse Ox 97 08/31/23 13:39 Oxygen Delivery Method Room Air 08/31/23 13:39 BMI result Body Mass Index 34.9 Tobacco/Smoking Status: Tobacco use Status Tobacco use date assessed 08/31/23 08/31/23 13:38 Patient Tobacco Use Status Former Tobacco user 08/31/23 13:38 e-Cigarette/Vaping Use Never Used 08/31/23 13:38 PHQ-9: PHQ-9 Score PHQ-9: Total score 0 08/31/23 13:38 Depression Screening Interpretation: Negative Thrive Assessment: Date of Thrive Assessment Date Thrive assessed 08/31/23 08/31/23 13:38 Currently or been in a relationship where the following occur: no concerns reported Const General: no acute distress and alert HENMT Ears: TM's normal bilaterally and EAC's normal Throat: Yes posterior oropharynx normal and Yes tonsils normal (no TP congestion noted) Neck Neck: Yes no lymphadenopathy and Yes supple Resp Auscultation: clear to auscultation bilaterally, no rales and no wheezes Cardio Rate: regular rate Rhythm: regular rhythm Heart sounds: no murmurs GI Palpation (GI): Soft to palpation and nontender Auscultation: normal bowel sounds Extrem General: No clubbing, No cyanosis and Yes pedal edema (1+ bipedal edema noted) Right lower extremity: knee Details: tenderness Location: of the medial joint line and of the infrapatellar area; no swelling Results AMB Hemoglobin A1c AMB Hemoglobin A1c 6.0 % Last Edit by ELSIE Kan on 08/31/23 13:47 Results Reviewed Results Reviewed: Laboratory Last Values Hgb A1c (Clinic) 6.0 % (4.0-6.0) 08/31/23 13:34 Laboratory Tests 08/29/23 08/29/23 08/31/23 09:59 09:59 13:34 WBC 7.3 Hgb 14.9 Hct 44.0 Plt Count 293 Sodium 140 Potassium 4.2 Creatinine 0.87 Estimated GFR > 60 Fasting Glucose 112 H Hgb A1c (Clinic) 6.0 Calcium 10.2 AST 16 ALT 8 Triglycerides 75 Cholesterol 155 LDL Cholesterol, Calc 93 HDL Cholesterol 47 25-OH Vitamin D Total 33.6 TSH 0.30 L Free T4 1.79 Assessment and Plan Assessment & Plan (1) Pure hypercholesterolemia: Code(s): E78.00 - Pure hypercholesterolemia, unspecified Plan: Results of her labs done a couple of days ago reviewed and discussed with patient Reinforced low cholesterol diet Continue Simvastatin 20 mg QD Will recheck her labs and fasting lipids in 4 months for follow up (2) Benign essential hypertension: Code(s): I10 - Essential (primary) hypertension Plan: Reinforced low sodium diet - goal is systolic BP of at least 130 to 140 mm or less Continue Triamterene-HCT 75-50 mg 1/2 tablet QD and Lisinopril 5 mg QD (3) Acquired hypothyroidism: Code(s): E03.9 - Hypothyroidism, unspecified Plan: Her TFTs remain normal on her recent labs; patient is currently clinically euthyroid Continue Levothyroxine 125 mcg QD Will recheck her TFTs in 4 months for follow up (4) Diabetes mellitus: Code(s): E11.9 - Type 2 diabetes mellitus without complications Qualifiers: Diabetes mellitus type: type 2 Diabetes mellitus termite treater helper insulin use: without termite treater helper use Diabetes mellitus complication status: without complication Qualified Code(s): E11.9 - Type 2 diabetes mellitus without complications Plan: In-office HgbA1c done today is at 6.0% - patient cautioned that this is the highest her HgbA1c has gone over the last few years Her HgbA1c was previously at 5.4% and 5.3% when checked last year - goal is < 7.0% Reinforced diabetic diet Patient has not required any Rx for her diabetes and has been able to keep her blood sugar controlled with diet modification alone so far but cautioned that we may need to start her on some Rx if her blood sugar control does not improve by her next visit (5) Vitamin D deficiency: Code(s): E55.9 - Vitamin D deficiency, unspecified Plan: Continue Vitamin D3 2000 units QD (6) Obstructive sleep apnea: Code(s): G47.33 - Obstructive sleep apnea (adult) (pediatric) Plan: Patient has used her CPAP device in the past with good results but states that she has not needed to use her device in a few years now - feels that she sleeps well at night and does not have any symptoms of daytime fatigue or somnolence and would rather not go back on it (7) Edema: Code(s): R60.9 - Edema, unspecified Qualifiers: Edema type: unspecified Qualified Code(s): R60.9 - Edema, unspecified Plan: Involving primarily both lower legs and feet, on and off She is again advised that her recurrent pedal edema is most likely due to stasis and the effects of gravity She ie reminded to try keeping her legs and feet elevated as often as she can throughout the day to help minimize her edema She is already on Dyazide - advised that her diuretics should help keep her edema from increasing significantly, and that wearing support/compression stockings can help with her edema (8) Osteoarthritis of hands, bilateral: Code(s): M19.041 - Primary osteoarthritis, right hand; M19.042 - Primary osteoarthritis, left hand Qualifiers: Osteoarthritis type: primary Qualified Code(s): M19.041 - Primary osteoarthritis, right hand; M19.042 - Primary osteoarthritis, left hand Plan: X-rays of the hands done on 03/16/22 revealed degenerative arthritic changes of the PIP and DIP joints of all digits, with periapical spurring at the DIP joint of the 2nd and 3rd digits and PIP joint of the 1st digit Continue Tramadol 50 mg TID PRN for pain Patient is advised again to continue with regular hand exercises to help minimize her stiffness and pain (9) Memory loss or impairment: Code(s): R41.3 - Other amnesia Plan: Most likely due to cognitive impairment or early dementia related to her age Recommend referral to neurology, especially if symptoms get worse; patient would like to continue to hold off on neurology referral at this time Her daughter states that she will call for referral if patient's mental status/confusion gets worse but is asking if there is anything she can take to slow down her decline States that she has some OTC Prevagen at home and is wondering if that is okay to take She is advised to start taking her Prevagen daily since she already has them Will also start her on Donepezil 5 mng Q HS (10) Obesity (BMI 30-39.9): Code(s): E66.9 - Obesity, unspecified Plan: Reinforced diet/exercise as tolerated/lose weight Plan Follow up in 4 months Orders: Orders Lipid Panel 4 Months E78.00 - Pure hypercholesterolemia, unspecified Comprehensive [place]. Panel Fast 4 Months E78.00 - Pure hypercholesterolemia, unspecified Hemoglobin A1c 4 Months R73.01 - Impaired fasting glucose Free T4 (Free Thyroxine) 4 Months E03.9 - Hypothyroidism, unspecified Vitamin B12 and Folate 4 Months E53.8 - Deficiency of other specified B group vitamins AMB Hemoglobin A1c Today E11.9 - Type 2 diabetes mellitus without complications Thyroid Stimulating Hormone 4 Months E03.9 - Hypothyroidism, unspecified Vitamin D 25-OH Total 4 Months E55.9 - Vitamin D deficiency, unspecified Complete Blood Count Auto Diff 4 Months D64.9 - Anemia, unspecified Medications: New donepezil 5 mg PO BEDTIME 90 days 90 tabs 1RF Coding Level of Care Code Est Pt Level 4 (57236) Diagnoses Pure hypercholesterolemia E78.00 Benign essential hypertension I10 Acquired hypothyroidism E03.9 Type 2 diabetes mellitus without complication, without long-term current use of insulin E11.9 Diabetes mellitus type: type 2 Diabetes mellitus senior care insulin use: without termite treater helper use Diabetes mellitus complication status: without complication Vitamin D deficiency E55.9 Obstructive sleep apnea G47.33 Edema, unspecified type R60.9 Edema type: unspecified Primary osteoarthritis of both hands M19.041; M19.042 Osteoarthritis type: primary Memory loss or impairment R41.3 Obesity (BMI 30-39.9) E66.9
[2023-08-31 13:39] VITALS: BP 110/62; PULSE 57; O2SAT 97; BMI 34.9
== END 2023-08-31 14:26 | disposition home or self-care (01) ==
PROVIDERS: PCP Internal Medicine; Visit Provider Internal Medicine
DX: E78.00 Pure hypercholesterolemia, unspecified (principal); E66.9 Obesity, unspecified; E11.9 Type 2 diabetes mellitus without complications; Z68.34 Body mass index [BMI] 34.0-34.9, adult; I10 Essential (primary) hypertension; E03.9 Hypothyroidism, unspecified; E55.9 Vitamin D deficiency, unspecified; G47.33 Obstructive sleep apnea (adult) (pediatric); R60.9 Edema, unspecified; M19.041 Primary osteoarthritis, right hand; M19.042 Primary osteoarthritis, left hand; R41.3 Other amnesia
CPT/HCPCS: 83036; 99214

== ENCOUNTER 2024-01-04 10:05 | Outpatient (REF) | payer MEDICARE, SELFPAY ==
[2024-01-04 10:32] LABS: MANUAL DIFF FLAG NO
[2024-01-04 10:50] LABS: Basophils Absolute Auto 0.1 X10*3/uL (0.0-0.2); Basophils Percent Auto 0.9 % (0-2); Eosinophils Absolute Auto 0.3 X10*3/uL (0.0-0.4); Eosinophils Percent Auto 3.5 % (0-4); Hematocrit 40.1 % (37.0-47.0); Hemoglobin 13.6 g/dl (12.0-16.0); Imm Gran Abs Auto 0.01 X10*3/uL (0.00-0.03); Imm Gran Pct Auto 0.1 % (0.0-0.4); Lymphocytes Absolute Auto 2.3 X10*3/uL (1.2-4.9); Lymphocytes Percent Auto 28.6 % (20-40); Mean Corpuscular HGB Conc 33.9 g/dl (31.0-35.0); Mean Corpuscular Volume 94.4 fL (80.0-98.0); Mean Platelet Volume 10.1 fL (9.4-12.3); Monocytes Absolute Auto 0.5 X10*3/uL (0.1-1.2); Monocytes Percent Auto 6.2 % (2-11); Neutrophils Absolute Auto 4.9 x10*3/uL (2.0-8.3); Neutrophils Percent Auto 60.7 % (45-73); Platelet Count 264 X10*3/uL (160-400); Red Blood Count 4.25 X10*6/uL (4.20-5.50); Red Cell Distribution Width 13.4 % (11.0-16.0)
[2024-01-04 13:01] LABS: Folate 5.9 ng/mL (> or = 4.0); Vitamin B12 212 pg/mL (200-900)
[2024-01-04 15:08] LABS: Estimated Average Glucose 108 mg/dL; Hemoglobin A1c % 5.4 % (<6.0)
[2024-01-04 20:37] LABS: Alanine Aminotransferase 8 U/L (0-31); Albumin Level 3.8 g/dL (3.5-5.0); Alkaline Phosphatase 47 U/L (39-117); Anion Gap 14 (12-20); Aspartate Amino Transferase 16 U/L (5-31); Bilirubin Total 0.5 mg/dL (0.0-1.0); Blood Urea Nitrogen 10 mg/dL (9-16); Carbon Dioxide 26 mmol/L (22-29); Chloride 104 mmol/L (96-108); Cholesterol 169 mg/dL (<200); Estimated Glomerular Filt Rate > 60; Glucose Fasting 93 mg/dL (60-99); HDL Cholesterol 47 mg/dL (>40); LDL Cholesterol Calculated 104 mg/dL (<100); Potassium 3.7 mmol/L (3.3-5.1); Sodium 140 mmol/L (135-145); Total Protein 6.2 g/dL (6.5-8.0); Triglycerides 91 mg/dL (<150)
[2024-01-04 20:53] LABS: Free T4 (Free Thyroxine) 1.57 ng/dL (0.71-1.85); Thyroid Stimulating Hormone 0.14 uIU/mL (0.32-4.0); Vitamin D 25-OH Total 39.6 ng/mL (>30)
== END 2024-01-04 10:06 | disposition home or self-care (01) ==
LOC: HO.LAB 10:05
PROVIDERS: PCP Internal Medicine; Visit Provider Internal Medicine
DX: E78.00 Pure hypercholesterolemia, unspecified (principal); E55.9 Vitamin D deficiency, unspecified; E53.8 Deficiency of other specified B group vitamins; E03.9 Hypothyroidism, unspecified; R73.01 Impaired fasting glucose; D64.9 Anemia, unspecified
CPT/HCPCS: 36415; 80053; 80061; 82306; 82607; 82746; 83036; 84439; 84443; 85025

== ENCOUNTER 2024-01-07 10:08 | Outpatient (AMB) | payer MEDICARE, SELFPAY ==
--- NOTE | 2024-01-07 10:13 | MHC.PC.OV ---
Vital Signs 01/07/24 10:14 Height 5 ft 6 in Weight 205 lb 4 oz BMI 33.1 BP 124/66 Blood Pressure Location Lt brachial Position Sitting Pulse 70 Pulse Source Pulse Oximeter Pulse Oximetry (%) 98 Oxygen Delivery Method Room Air Intake Visit Reasons: 4mth f/u Intake Note: Patient is here to follow up on DM, ERYN, HTN. Emergency Management Consultant Required: No Loan Approver: Present Accompanied by: Daughter Allergies acetaminophen [Percocet] Allergy (Unknown, Verified 01/07/24 10:37) Unknown oxycodone [Percocet] Allergy (Unknown, Verified 01/07/24 10:37) Unknown penicillin V Allergy (Unknown, Verified 01/07/24 10:37) Unknown Medication List - Last Reconciled 01/07/24 by Hector Phelps MD cholecalciferol (vitamin D3) (Vitamin D3) 50 mcg PO DAILY donepezil 5 mg PO BEDTIME 90 days levothyroxine 125 mcg PO QAM 90 days lisinopril 5 mg PO DAILY 90 days simvastatin 20 mg PO BEDTIME 90 days triamterene-hydrochlorothiazid 75-50 mg 0.5 tabs PO QAM 90 days Tobacco use date assessed: 01/07/24 Fall risk assessment: No Falls in past year Last assessed Fall Risk: 01/07/24 Dental Screening Dental Screen Date: 08/31/23 HPI 4mt f/u HPI Details Patient comes in today for her follow up visit - is accompanied as usual by her daughter Patient states that she feels okay Her daughter states that she helps patient manage her medications daily but thinks that she sometimes forgets to take her bedtime meds - is wondering if she can just have her take them all together in the morning to help improve her compliance Patient denies any headaches or dizziness Denies any chest pains, no SOB No nausea/vomiting, no abdominal pain Her daughter states that patient has been experiencing increased constipation often lately and she just bought patient some OTC Metamucil gummies and Probiotic tablets that she is going to have patient try to see if these will help regulate her bowel movements better States that she has been experiencing recurrent pain behind her left hip lately and this feels worse with prolonged walking She had her follow up labs done a few days ago - to discuss her results [facility] Medical History (Updated 01/07/24 @ 11:04 by Hector Phelps MD) Vitamin B12 deficiency (non anemic) Memory loss or impairment Obesity (BMI 30-39.9) Obstructive sleep apnea Acquired hypothyroidism Benign essential hypertension Pure hypercholesterolemia Vitamin D deficiency Hypothyroidism Hyperlipidemia Diabetes mellitus Hypertension Surgical History History of biopsy History of tonsillectomy History of laparoscopic cholecystectomy Family History Father Medical history unknown Mother Medical history unknown Other Substance abuse Social History Housing: Apartment Alcohol intake: current Alcohol intake frequency: 0-2 drinks per day Alcohol type: wine Patient Tobacco Use Status: Former Tobacco user e-Cigarette/Vaping Use: Never Used Second Hand Smoke Exposure: Yes service: No Current occupational status: retired Cognitive needs: Yes (Cane) Hearing needs: No Vision needs: No Questionnaire Thrive Questionnaire Date Thrive assessed: 08/31/23 DILLON-7 AMB Questionnaire DILLON-7 Date DILLON - 7 assessed: 08/31/23 Source: Developed by Drs. Mario Thomas, Soni Guthrie, Adrian Villa and colleagues, with an educational suraj from [employer]. Review of Systems Const Denies chills, Denies fatigue, Denies fever(s) and Denies headache(s) ENT Denies dysphagia, Denies dizziness, Denies otalgia, Denies headache(s), Denies neck pain, Denies odynophagia and Denies sore throat Card Denies chest pain, Denies palpitations and Denies dyspnea Resp Denies cough and Denies dyspnea GI Denies abdominal pain, Reports constipation (frequent lately), Denies dysphagia, Denies heartburn, Denies diarrhea, Denies nausea, Denies odynophagia and Denies vomiting Denies difficulty voiding, Denies nocturia, Denies dysuria and Denies urinary urgency Musc Denies back pain, Reports arthralgias (behind the left hip, worse with prolonged walking), Denies joint swelling and Denies neck pain Skin/Breast Denies rash Neuro Reports confusion (on and off, per daughter), Denies dizziness, Denies headache(s) and Reports memory loss (on and off, per patient's daughter) Psych Reports confusion (on and off, per daughter) and Reports memory loss (on and off, per patient's daughter) Endo Denies fatigue and Denies palpitations Suresh/Lymph Details: on and off swelling of her lower legs and feet lately Physical exam (Primary Care) Vital Signs: Last Vital Signs Pulse 70 01/07/24 10:14 BP 124/66 01/07/24 10:14 Pulse Ox 98 01/07/24 10:14 Oxygen Delivery Method Room Air 01/07/24 10:14 BMI result Body Mass Index 33.1 Tobacco/Smoking Status: Tobacco use Status Tobacco use date assessed 01/07/24 01/07/24 10:19 Patient Tobacco Use Status Former Tobacco user 01/07/24 10:19 e-Cigarette/Vaping Use Never Used 01/07/24 10:19 Thrive Assessment: Date of Thrive Assessment Date Thrive assessed 08/31/23 01/07/24 10:19 Const General: no acute distress, alert and confusion (on and off, per daughter) Orientation/consciousness: confusion (on and off, per daughter) HENMT Ears: TM's normal bilaterally and EAC's normal Throat: Yes posterior oropharynx normal and Yes tonsils normal (no TP congestion noted) Neck Neck: Yes no lymphadenopathy and Yes supple Resp Auscultation: clear to auscultation bilaterally, no rales and no wheezes Cardio Rate: regular rate Rhythm: regular rhythm Heart sounds: no murmurs GI Palpation (GI): Soft to palpation and nontender Auscultation: normal bowel sounds General: Yes no CVA tenderness Back/Spine/Pelvis Back: no CVA tenderness Thoracic/Lumbar Spine: No lumbar spinal tenderness Skin Rashes: no rashes Neuro General: confusion (on and off, per daughter) Extrem General: Yes no clubbing, cyanosis or edema Left lower extremity: hip/thigh Details: tenderness Location: of the hip Location: posteriorly; no swelling Results Reviewed Results Reviewed: Laboratory Tests 01/04/24 10:31 WBC 8.0 Hgb 13.6 Hct 40.1 Plt Count 264 Sodium 140 Potassium 3.7 Creatinine 0.85 Estimated GFR > 60 Fasting Glucose 93 Hemoglobin A1c % 5.4 Calcium 10.0 AST 16 ALT 8 Triglycerides 91 Cholesterol 169 LDL Cholesterol, Calc 104 H HDL Cholesterol 47 Vitamin B12 212 25-OH Vitamin D Total 39.6 TSH 0.14 L Free T4 1.57 Assessment and Plan Assessment & Plan (1) Pure hypercholesterolemia: Code(s): E78.00 - Pure hypercholesterolemia, unspecified Plan: Results of her labs done a few days ago reviewed and discussed with patient - have advised patient's daughter that her cholesterol levels are still okay but her LDL cholesterol has increased from previous Reinforced low cholesterol diet Continue Simvastatin 20 mg QD - have advised patient's daughter to make sure she is not forgetting to take her cholesterol med Will recheck her labs and fasting lipids in 4 months for follow up (2) Benign essential hypertension: Code(s): I10 - Essential (primary) hypertension Plan: Reinforced low sodium diet - goal is systolic BP of at least 130 to 140 mm or less Continue Triamterene-HCT 75-50 mg 1/2 tablet QD and Lisinopril 5 mg QD (3) Acquired hypothyroidism: Code(s): E03.9 - Hypothyroidism, unspecified Plan: Her free T4 level remains normal on her recent labs but TSH is suppressed ; patient is currently clinically euthyroid Continue Levothyroxine 125 mcg QD Will recheck her TFTs in 4 months for follow up (4) Diabetes mellitus: Code(s): E11.9 - Type 2 diabetes mellitus without complications Qualifiers: Diabetes mellitus type: type 2 Diabetes mellitus superintendent terminal insulin use: without superintendent terminal use Diabetes mellitus complication status: without complication Qualified Code(s): E11.9 - Type 2 diabetes mellitus without complications Plan: Her HGbA1c remains normal at 5.4% on her labs done a few days ago (in-office HgbA1c was at 6.0% a few months ago) - goal is at least <7.0% Reinforced diabetic diet Patient has not required any Rx for her diabetes and has been able to keep her blood sugar controlled with diet modification alone so far Will continue to monitor her glycemic control closely (5) Vitamin D deficiency: Code(s): E55.9 - Vitamin D deficiency, unspecified Plan: Continue Vitamin D3 2000 units QD (6) Vitamin B12 deficiency (non anemic): Code(s): E53.8 - Deficiency of other specified B group vitamins Plan: Patient is advised that her Vitamin B12 level is now at the cut off between normal and low She continues to drink a glass of wine every night and states that she has no intention of quitting - this is likely contributing to her low B12 level Will start her on Vitamin B12 1000 mcg just once a week (7) Obstructive sleep apnea: Code(s): G47.33 - Obstructive sleep apnea (adult) (pediatric) Plan: Patient has used her CPAP device in the past with good results but states that she has not needed to use her device in a few years now - feels that she sleeps well at night and does not have any symptoms of daytime fatigue or somnolence and would rather not go back on it (8) Edema: Code(s): R60.9 - Edema, unspecified Qualifiers: Edema type: unspecified Qualified Code(s): R60.9 - Edema, unspecified Plan: Involving primarily both lower legs and feet, on and off - no edema noted currently She is again advised that her recurrent pedal edema is most likely due to stasis and the effects of gravity She ie reminded to try keeping her legs and feet elevated as often as she can throughout the day to help minimize her edema She is already on Dyazide - advised that her diuretics should help keep her edema from increasing significantly, and that wearing support/compression stockings can help with her edema (9) Osteoarthritis of hands, bilateral: Code(s): M19.041 - Primary osteoarthritis, right hand; M19.042 - Primary osteoarthritis, left hand Qualifiers: Osteoarthritis type: primary Qualified Code(s): M19.041 - Primary osteoarthritis, right hand; M19.042 - Primary osteoarthritis, left hand Plan: X-rays of the hands done on 03/16/22 revealed degenerative arthritic changes of the PIP and DIP joints of all digits, with periapical spurring at the DIP joint of the 2nd and 3rd digits and PIP joint of the 1st digit Continue Tramadol 50 mg TID PRN for pain Patient is advised again to continue with regular hand exercises to help minimize her stiffness and pain (10) Left hip pain: Code(s): M25.552 - Pain in left hip Plan: Will send her for left hip x-rays for further evaluation - advised that her left hip pain is likely due to OA of the hip Will also have her get lumbar spine x-rays done, in case her posterior left hip pain ia referred pain from her lumbar spine (11) Memory loss or impairment: Code(s): R41.3 - Other amnesia Plan: Most likely due to cognitive impairment or early dementia related to her age Recommend referral to neurology, especially if symptoms get worse; patient would like to continue to hold off on neurology referral at this time Her daughter states that she will call for referral if patient's mental status/confusion gets worse but is asking if there is anything she can take to slow down her decline Continue Donepezil 5 mg Q HS; she also takes OTC Prevagen daily (12) Obesity (BMI 30-39.9): Code(s): E66.9 - Obesity, unspecified Plan: Reinforced diet; exercise and weight loss are probably not realistic given patient's declining cognition Plan Follow up in 4 months Orders: Orders XR lumbar spine 2-3V Today M54.50 - Low back pain, unspecified Thyroid Stimulating Hormone 4 Months E03.9 - Hypothyroidism, unspecified Lipid Panel 4 Months E78.00 - Pure hypercholesterolemia, unspecified Comprehensive [place]. Panel Fast 4 Months E78.00 - Pure hypercholesterolemia, unspecified Free T4 (Free Thyroxine) 4 Months E03.9 - Hypothyroidism, unspecified Vitamin D 25-OH Total 4 Months E55.9 - Vitamin D deficiency, unspecified UA CC w/rflx Micro + Cult 4 Months R30.0 - Dysuria XR hip LT min 2V Today M25.552 - Pain in left hip Complete Blood Count Auto Diff 4 Months D64.9 - Anemia, unspecified Vitamin B12 and Folate 4 Months E53.8 - Deficiency of other specified B group vitamins Medications: New mecobalamin (vitamin B12) 1,000 mcg PO QWEEK 90 days 13 tabs 3RF Coding Level of Care Code Est Pt Level 4 (56407) Complex EM visit Add On G2211 Diagnoses Pure hypercholesterolemia E78.00 Benign essential hypertension I10 Acquired hypothyroidism E03.9 Type 2 diabetes mellitus without complication, without long-term current use of insulin E11.9 Diabetes mellitus type: type 2 Diabetes mellitus superintendent terminal insulin use: without superintendent terminal use Diabetes mellitus complication status: without complication Vitamin D deficiency E55.9 Vitamin B12 deficiency (non anemic) E53.8 Obstructive sleep apnea G47.33 Edema, unspecified type R60.9 Edema type: unspecified Primary osteoarthritis of both hands M19.041; M19.042 Osteoarthritis type: primary Left hip pain M25.552 Memory loss or impairment R41.3 Obesity (BMI 30-39.9) E66.9
[2024-01-07 10:14] VITALS: BP 124/66; PULSE 70; O2SAT 98; BMI 33.1
== END 2024-01-07 10:54 | disposition home or self-care (01) ==
PROVIDERS: PCP Internal Medicine; Visit Provider Internal Medicine
DX: E78.00 Pure hypercholesterolemia, unspecified (principal); I10 Essential (primary) hypertension; E03.9 Hypothyroidism, unspecified; E11.9 Type 2 diabetes mellitus without complications; E55.9 Vitamin D deficiency, unspecified; E53.8 Deficiency of other specified B group vitamins; G47.33 Obstructive sleep apnea (adult) (pediatric); R60.9 Edema, unspecified; M19.041 Primary osteoarthritis, right hand; M19.042 Primary osteoarthritis, left hand; M25.552 Pain in left hip; R41.3 Other amnesia; E66.9 Obesity, unspecified
CPT/HCPCS: 99214; G2211

== ENCOUNTER 2024-01-07 11:05 | Outpatient (REF) | payer MEDICARE, SELFPAY ==
--- NOTE | ~2024-01-07 | XR_ITS ---
EXAMINATION: 1. RADIOGRAPHS LUMBAR SPINE 2. RADIOGRAPHS LEFT HIP CLINICAL INFORMATION: Pain for several days COMPARISON: None TECHNIQUE: 3 views of the lumbar spine and 2 views of the left upper obtained. FINDINGS: Lumbar spine: 5 nonrib-bearing lumbar vertebral bodies are visualized. There is minimal anterolisthesis of L4 on L5. Alignment is otherwise unremarkable. Lumbar vertebral body heights are maintained. There is mild to moderate narrowing of the L4/L5 and L5/S1 disc space heights. Mild degenerative changes of the posterior elements of the lower lumbar spine. Tiny osteophytes are scattered throughout the lumbar spine with more prominent osteophytes noted in the region of the thoracolumbar junction. Surgical clips in the right upper abdomen suggest prior cholecystectomy. Left hip: Visualized portion of proximal left femur demonstrate no fracture. Left femoral head is well-seated within the acetabulum. There is only mild narrowing of the left femoral acetabular joint space. There are some hypertrophic changes of the greater trochanter. XR/XR lumbar spine 2-3V IMPRESSION: 1. Mild to moderate degenerative changes of the lumbar spine without compression deformity. 2. Mild degenerative changes of the left hip without fracture or dislocation.
--- NOTE | ~2024-01-07 | XR_ITS ---
EXAMINATION: 1. RADIOGRAPHS LUMBAR SPINE 2. RADIOGRAPHS LEFT HIP CLINICAL INFORMATION: Pain for several days COMPARISON: None TECHNIQUE: 3 views of the lumbar spine and 2 views of the left upper obtained. FINDINGS: Lumbar spine: 5 nonrib-bearing lumbar vertebral bodies are visualized. There is minimal anterolisthesis of L4 on L5. Alignment is otherwise unremarkable. Lumbar vertebral body heights are maintained. There is mild to moderate narrowing of the L4/L5 and L5/S1 disc space heights. Mild degenerative changes of the posterior elements of the lower lumbar spine. Tiny osteophytes are scattered throughout the lumbar spine with more prominent osteophytes noted in the region of the thoracolumbar junction. Surgical clips in the right upper abdomen suggest prior cholecystectomy. Left hip: Visualized portion of proximal left femur demonstrate no fracture. Left femoral head is well-seated within the acetabulum. There is only mild narrowing of the left femoral acetabular joint space. There are some hypertrophic changes of the greater trochanter. XR/XR hip LT min 2V IMPRESSION: 1. Mild to moderate degenerative changes of the lumbar spine without compression deformity. 2. Mild degenerative changes of the left hip without fracture or dislocation.
== END 2024-01-07 11:06 | disposition home or self-care (01) ==
LOC: HO.XRAY 11:05
PROVIDERS: PCP Internal Medicine; Visit Provider Internal Medicine
DX: M25.552 Pain in left hip (principal); M54.50 Low back pain, unspecified
CPT/HCPCS: 72100; 73502

== ENCOUNTER 2024-05-09 10:05 | Outpatient (REF) | payer MEDICARE, SELFPAY ==
[2024-05-09 10:32] LABS: MANUAL DIFF FLAG NO
[2024-05-09 11:40] LABS: Basophils Absolute Auto 0.1 X10*3/uL (0.0-0.2); Basophils Percent Auto 0.9 % (0-2); Eosinophils Absolute Auto 0.2 X10*3/uL (0.0-0.4); Eosinophils Percent Auto 2.4 % (0-4); Hemoglobin 13.8 g/dl (12.0-16.0); Imm Gran Abs Auto 0.02 X10*3/uL (0.00-0.03); Imm Gran Pct Auto 0.3 % (0.0-0.4); Lymphocytes Absolute Auto 1.8 X10*3/uL (1.2-4.9); Lymphocytes Percent Auto 23.7 % (20-40); Mean Corpuscular HGB Conc 33.7 g/dl (31.0-35.0); Mean Corpuscular Hemoglobin 32.9 pg (27.0-33.0); Mean Corpuscular Volume 97.6 fL (80.0-98.0); Mean Platelet Volume 10.5 fL (9.4-12.3); Monocytes Absolute Auto 0.4 X10*3/uL (0.1-1.2); Monocytes Percent Auto 5.7 % (2-11); Neutrophils Absolute Auto 5.2 x10*3/uL (2.0-8.3); Platelet Count 281 X10*3/uL (160-400); Red Cell Distribution Width 14.6 % (11.0-16.0); White Blood Count 7.8 X10*3/uL (4.8-10.8)
[2024-05-09 12:17] LABS: Appearance Urine Clear; Color Urine Yellow; Glucose Urine UA Negative (Negative); Leukocyte Esterase Urine Negative (Negative); Nitrite Urine Negative (Negative); Urine Blood Negative (Negative); Urine Ketones Negative (Negative); Urine Protein Negative (Neg-Trace)
[2024-05-09 12:19] LABS: Alanine Aminotransferase < 6 U/L (0-31); Albumin Level 3.9 g/dL (3.5-5.0); Alkaline Phosphatase 54 U/L (39-117); Anion Gap 11 (12-20); Aspartate Amino Transferase 22 U/L (5-31); Bilirubin Total 0.5 mg/dL (0.0-1.0); Blood Urea Nitrogen 24 mg/dL (9-16); Calcium 10.5 mg/dL (8.4-10.2); Carbon Dioxide 29 mmol/L (22-29); Chloride 104 mmol/L (96-108); Cholesterol 202 mg/dL (<200); Estimated Glomerular Filt Rate 36; Glucose Fasting 84 mg/dL (60-99); HDL Cholesterol 45 mg/dL (>40); LDL Cholesterol Calculated 139 mg/dL (<100); Potassium 4.1 mmol/L (3.3-5.1); Sodium 140 mmol/L (135-145); Total Protein 6.3 g/dL (6.5-8.0); Triglycerides 92 mg/dL (<150)
[2024-05-09 12:35] LABS: Thyroid Stimulating Hormone 0.29 uIU/mL (0.32-4.0); Vitamin D 25-OH Total 39.3 ng/mL (>30)
[2024-05-09 12:40] LABS: Folate 6.2 ng/mL (> or = 4.0); Vitamin B12 223 pg/mL (200-900)
== END 2024-05-09 10:06 | disposition home or self-care (01) ==
LOC: HO.LAB 10:05
PROVIDERS: PCP Internal Medicine; Visit Provider Internal Medicine
DX: E03.9 Hypothyroidism, unspecified (principal); E78.00 Pure hypercholesterolemia, unspecified; R30.0 Dysuria; E55.9 Vitamin D deficiency, unspecified; D64.9 Anemia, unspecified; E53.8 Deficiency of other specified B group vitamins; Z23 Encounter for immunization; I12.9 Hypertensive chronic kidney disease with stage 1 through stage 4 chronic kidney disease, or unspecified chronic kidney disease; E11.22 Type 2 diabetes mellitus with diabetic chronic kidney disease; N18.32 Chronic kidney disease, stage 3b; Z79.899 Other long term (current) drug therapy; R63.4 Abnormal weight loss; M19.041 Primary osteoarthritis, right hand; M19.042 Primary osteoarthritis, left hand; M16.12 Unilateral primary osteoarthritis, left hip; Z79.890 Hormone replacement therapy
CPT/HCPCS: 36415; 80053; 80061; 81003; 82306; 82607; 82746; 84439; 84443; 85025; 90471; 90656; 99212

== ENCOUNTER 2024-05-09 12:30 | Outpatient (AMB) | payer MEDICARE, SELFPAY ==
--- NOTE | 2024-05-09 12:38 | MHC.PC.OV ---
Vital Signs 05/09/24 12:39 05/09/24 13:02 Height 5 ft 6 in Weight 194 lb BMI 31.3 BP 110/80 Blood Pressure Location Lt brachial Position Sitting Pulse 45 L 56 Pulse Source Pulse Oximeter Palpation Pulse Oximetry (%) 100 Oxygen Delivery Method Room Air Intake Visit Reasons: 4mth f/u Allergies acetaminophen [Percocet] Allergy (Unknown, Verified 01/07/24 10:37) Unknown oxycodone [Percocet] Allergy (Unknown, Verified 01/07/24 10:37) Unknown penicillin V Allergy (Unknown, Verified 01/07/24 10:37) Unknown Medication List - Last Reconciled 05/09/24 by Hector Phelps MD cholecalciferol (vitamin D3) (Vitamin D3) 50 mcg PO DAILY donepezil 5 mg PO BEDTIME 90 days levothyroxine 125 mcg PO QAM 90 days lisinopril 5 mg PO DAILY 90 days mecobalamin (vitamin B12) 1,000 mcg PO QWEEK 90 days simvastatin 20 mg PO BEDTIME 90 days triamterene-hydrochlorothiazid 75-50 mg 0.5 tabs PO QAM 90 days Tobacco use date assessed: 01/07/24 Dental Screening Dental Screen Date: 08/31/23 HPI 4mt f/u HPI Details Patient comes in today for her follow up visit - is accompanied as usual by her daughter Patient states that she feels okay Her daughter helps patient manage her medications daily as she is no longer able to manage her own meds due to her declining cognition and memory Patient denies any headaches or dizziness Denies any chest pains, no SOB No nausea/vomiting, no abdominal pain No change in bowel habits noted States that she is still experiencing on and off pain behind her left hip that feels worse with prolonged walking She had her follow up labs done earlier today - to discuss her results She would also like to get her flu shot today [facility] Medical History (Updated 05/10/24 @ 16:39 by Hector Phelps MD) Primary osteoarthritis of left hip Chronic kidney disease, stage III (moderate) Vitamin B12 deficiency (non anemic) Memory loss or impairment Obesity (BMI 30-39.9) Obstructive sleep apnea Acquired hypothyroidism Benign essential hypertension Pure hypercholesterolemia Vitamin D deficiency Hypothyroidism Hyperlipidemia Diabetes mellitus Hypertension Surgical History History of biopsy History of tonsillectomy History of laparoscopic cholecystectomy Family History Father Medical history unknown Mother Medical history unknown Other Substance abuse Social History Housing: Apartment Alcohol intake: current Alcohol intake frequency: 0-2 drinks per day Alcohol type: wine Patient Tobacco Use Status: Former Tobacco user e-Cigarette/Vaping Use: Never Used Second Hand Smoke Exposure: Yes service: No Current occupational status: retired Cognitive needs: Yes (Cane) Hearing needs: No Vision needs: No Questionnaire Thrive Questionnaire Date Thrive assessed: 08/31/23 AUDIT C Alcohol Use Questionnaire (AUDIT-C) 2. How many drinks containing alcohol do you have on a typical day when you are drinking?: 1 or 2 3. How often do you have six or more drinks on one occasion?: Never Total Score: 0 DILLON-7 AMB Questionnaire DILLON-7 Date DILLON - 7 assessed: 08/31/23 Source: Developed by Drs. Mario Thomas, Soni Guthrie, Adrian Villa and colleagues, with an educational suraj from [employer]. Review of Systems Const Denies chills, Denies fatigue, Denies fever(s) and Denies headache(s) ENT Denies dysphagia, Denies dizziness, Denies otalgia, Denies headache(s), Denies neck pain, Denies odynophagia and Denies sore throat Card Denies chest pain, Denies palpitations and Denies dyspnea Resp Denies chest congestion, Denies cough and Denies dyspnea GI Denies abdominal pain, Reports constipation (on and off), Denies dysphagia, Denies heartburn, Denies diarrhea, Denies nausea, Denies odynophagia and Denies vomiting Denies difficulty voiding, Denies nocturia, Denies dysuria and Denies urinary urgency Musc Denies back pain, Reports arthralgias (behind the left hip, worse with prolonged walking ), Denies joint swelling and Denies neck pain Skin/Breast Denies rash Neuro Reports confusion (on and off, per daughter), Denies dizziness, Denies headache(s) and Reports memory loss (on and off, per patient's daughter) Psych Reports confusion (on and off, per daughter) and Reports memory loss (on and off, per patient's daughter) Endo Denies fatigue and Denies palpitations Suresh/Lymph Details: on and off swelling of her lower legs and feet lately Physical exam (Primary Care) Vital Signs: Last Vital Signs Pulse 56 05/09/24 13:02 BP 110/80 05/09/24 12:39 Pulse Ox 100 05/09/24 12:39 Oxygen Delivery Method Room Air 05/09/24 12:39 BMI result Body Mass Index 31.3 Tobacco/Smoking Status: Tobacco use Status Tobacco use date assessed 01/07/24 05/09/24 12:41 Patient Tobacco Use Status Former Tobacco user 05/09/24 12:41 e-Cigarette/Vaping Use Never Used 05/09/24 12:41 Thrive Assessment: Date of Thrive Assessment Date Thrive assessed 08/31/23 05/09/24 12:41 Const General: no acute distress, alert and confusion (on and off, per daughter) Orientation/consciousness: confusion (on and off, per daughter) HENMT Ears: TM's normal bilaterally and EAC's normal Throat: Yes posterior oropharynx normal and Yes tonsils normal (no TP congestion noted) Neck Neck: Yes no lymphadenopathy and Yes supple Thyroid: Thyroid normal Resp Auscultation: clear to auscultation bilaterally, no rales and no wheezes Cardio Rate: regular rate Rhythm: regular rhythm Heart sounds: no murmurs GI Palpation (GI): Soft to palpation and nontender Auscultation: normal bowel sounds General: Yes no CVA tenderness Back/Spine/Pelvis Back: no CVA tenderness Thoracic/Lumbar Spine: No lumbar spinal tenderness Skin Rashes: no rashes Neuro General: confusion (on and off, per daughter) Extrem General: Yes no clubbing, cyanosis or edema Left lower extremity: hip/thigh Details: tenderness Location: of the hip Location: posteriorly; no swelling Office Procedures Flu Questionnaire Does the patient have a severe egg allergy?: No Does the patient have severe life threatening allergies?: No Does the patient have a fever or illness today?: No Has the patient ever had Guillain-Garita Syndrome?: No Has the patient ever had any past reaction to a flu shot?: No Immunizations Fluarix Triv 5956-7880 (PF) 45 mcg (15 mcg x 3)/0.5 mL IM syringe Performing Provider: Hector Phelps MD [facility] Administered by: ADELA Mora on 05/09/24 12:52 Dose Route Admin Location Dispensed Lot Number Expiration Date NDC Carton Forming Machine Tender 0.5 mL IM Left Deltoid 0.5 mL [id number] 12/15/24 [id number] LK [employer]RE[employer] VIS Given Date VIS Provided VIS Publication Date 05/09/24 Single Vaccine 21 Eligibility Eligibility Date Funding Source Not [facility] Eligible 05/09/24 Private Results Reviewed Results Reviewed: Laboratory Tests 05/09/24 05/09/24 10:28 10:30 WBC 7.8 Hgb 13.8 Hct 41.0 Plt Count 281 Sodium 140 Potassium 4.1 Creatinine 1.41 H Estimated GFR 36 Fasting Glucose 84 Calcium 10.5 H AST 22 ALT < 6 Total Protein 6.3 L Triglycerides 92 Cholesterol 202 H LDL Cholesterol, Calc 139 H HDL Cholesterol 45 TSH 0.29 L Free T4 1.70 Ur Specific [place]win 1.010 Urine Protein Negative Urine Glucose (UA) Negative Urine Blood Negative Urine Nitrite Negative Ur Leukocyte Esterase Negative Coding Level of Care Code Est Pt Level 4 (56141) Complex EM visit Add On G2211 Diagnoses Pure hypercholesterolemia E78.00 Benign essential hypertension I10 Acquired hypothyroidism E03.9 Type 2 diabetes mellitus without complication, without long-term current use of insulin E11.9 Diabetes mellitus type: type 2 Diabetes mellitus mcfp insulin use: without mcfp use Diabetes mellitus complication status: without complication Stage 3b chronic kidney disease N18.32 Chronic kidney disease stage 3 subtype: stage 3b (GFR 30-44) Weight loss, unintentional R63.4 Vitamin D deficiency E55.9 Vitamin B12 deficiency (non anemic) E53.8 Obstructive sleep apnea G47.33 Primary osteoarthritis of both hands M19.041; M19.042 Osteoarthritis type: primary Primary osteoarthritis of left hip M16.12 Memory loss or impairment R41.3 Obesity (BMI 30-39.9) E66.9 Assessment & Plan Assessment & Plan (1) Pure hypercholesterolemia: Code(s): E78.00 - Pure hypercholesterolemia, unspecified Category: Medical Plan: Results of her labs done earlier this morning reviewed and discussed with patient - have advised patient's daughter that her cholesterol levels have again gone up further and her LDL cholesterol has increased from 93 mg/dl earlier this year to 139 mg/dl now Reinforced low cholesterol diet Continue Simvastatin 20 mg QD - have advised patient's daughter to make sure that patient is not forgetting to take her cholesterol med; otherwise, we may have to adjust her dose or switch her over to another more potent statin Will recheck her labs and fasting lipids in 4 months for follow up (2) Benign essential hypertension: Code(s): I10 - Essential (primary) hypertension Category: Medical Plan: Reinforced low sodium diet - goal is systolic BP of at least 130 to 140 mm or less Continue Triamterene-HCT 75-50 mg 1/2 tablet QD and Lisinopril 5 mg QD (3) Acquired hypothyroidism: Code(s): E03.9 - Hypothyroidism, unspecified Category: Medical Plan: With patient's significant weight loss over the past several months, her TFTs are now trending into higher ranges and her thyroid hormone supplement will now need to be adjusted Will lower her Levothyroxine from 125 mcg to 112 mcg QD Will recheck her TFTs in 4 months for follow up (4) Diabetes mellitus: Code(s): E11.9 - Type 2 diabetes mellitus without complications Category: Medical Qualifiers: Diabetes mellitus type: type 2 Diabetes mellitus lobsterman insulin use: without mcfp use Diabetes mellitus complication status: without complication Qualified Code(s): E11.9 - Type 2 diabetes mellitus without complications Plan: Her HgbA1c remained normal at 5.4% when last checked in December 2023; her FBS was normal at 84 mg/dl on her labs done earlier today - goal is HgbA1c of at least <7.0% Reinforced diabetic diet Patient has not required any Rx for her diabetes and has been able to keep her blood sugar controlled with diet modification alone so far Will continue to monitor her glycemic control closely (5) Chronic kidney disease, stage III (moderate): Code(s): N18.30 - Chronic kidney disease, stage 3 unspecified Category: Medical Qualifiers: Chronic kidney disease stage 3 subtype: stage 3b (GFR 30-44) Qualified Code(s): N18.32 - Chronic kidney disease, stage 3b Plan: Have cautioned patient's daughter (and also patient, to as much as she can comprehend) that patient's renal function has declined significantly and precipitously over the past few months, likely as result of poor oral intake (both fluids and food) Have advised her daughter to try keeping track of patient's oral intake and to make sure she stays adequately hydrated or we may need to cut back on her diuretic dose in the next few months (6) Weight loss, unintentional: Code(s): R63.4 - Abnormal weight loss Category: Medical Plan: Patient appears to have inadvertently lost over 20 pounds in the past half year, likely due to poor and declining oral intake Her recent renal function decline also points to likely poor oral fluid intake as well and both of these are possibly related to her declining cognition and memory Have advised patient's daughter to try paying more attention to these, as they can continue to significantly impact patient's overall health if these continue (7) Vitamin D deficiency: Code(s): E55.9 - Vitamin D deficiency, unspecified Category: Medical Plan: Continue Vitamin D3 2000 units QD (8) Vitamin B12 deficiency (non anemic): Code(s): E53.8 - Deficiency of other specified B group vitamins Category: Medical Plan: Her B12 level is still borderline low and have not changed much from previous Will increase her Vitamin B12 1000 mcg once a week to daily now Patient continues to drink a glass of wine every night and states that she has no intention of quitting - this is likely contributing to her low B12 level (9) Obstructive sleep apnea: Code(s): G47.33 - Obstructive sleep apnea (adult) (pediatric) Category: Medical Plan: Patient has used her CPAP device in the past with good results but states that she has not needed to use her device in a few years now - feels that she sleeps well at night and does not have any symptoms of daytime fatigue or somnolence and would rather not go back on it (10) Osteoarthritis of hands, bilateral: Code(s): M19.041 - Primary osteoarthritis, right hand; M19.042 - Primary osteoarthritis, left hand Category: Medical Qualifiers: Osteoarthritis type: primary Qualified Code(s): M19.041 - Primary osteoarthritis, right hand; M19.042 - Primary osteoarthritis, left hand Plan: X-rays of the hands done on 03/16/22 revealed degenerative arthritic changes of the PIP and DIP joints of all digits, with periapical spurring at the DIP joint of the 2nd and 3rd digits and PIP joint of the 1st digit Continue Tramadol 50 mg TID PRN for pain Patient is advised again to continue with regular hand exercises to help minimize her stiffness and pain (11) Primary osteoarthritis of left hip: Code(s): M16.12 - Unilateral primary osteoarthritis, left hip Category: Medical Plan: Left hip x-rays done back in December 2023 revealed (+) mild degenerative changes of the left hip without fracture or dislocation Can refer her to orthopedics for consideration for cortisone injection if her left hip continues to bother her (12) Memory loss or impairment: Code(s): R41.3 - Other amnesia Category: Medical Plan: Most likely due to cognitive impairment or early dementia related to her age Have recommend referral to neurology, especially if symptoms get worse but patient would like to continue to hold off on neurology referral at this time Her daughter states that she will call for referral if patient's mental status/confusion gets worse but is asking if there is anything she can take to slow down her decline Continue Donepezil 5 mg Q HS; she also takes OTC Prevagen daily (13) Obesity (BMI 30-39.9): Code(s): E66.9 - Obesity, unspecified Category: Medical Plan: Reinforced diet; she should ideally try losing some weight but she has lost over 20 pounds unintentionally in the past 6 to 8 months so poor oral intake is a concern here, especially in light of patient's declining cognition Will continue to monitor her weight closely for now Plan As requested, flu vaccine given to patient today Follow up in 4 months Orders: Orders Thyroid Stimulating Hormone 4 Months E03.9 - Hypothyroidism, unspecified Influenza [id number] Immunization 05/09/24 Z23 - Encounter for immunization Complete Blood Count Auto Diff 4 Months D64.9 - Anemia, unspecified Comprehensive [place]. Panel Fast 4 Months E78.00 - Pure hypercholesterolemia, unspecified Lipid Panel 4 Months E78.00 - Pure hypercholesterolemia, unspecified Free T4 (Free Thyroxine) 4 Months E03.9 - Hypothyroidism, unspecified Vitamin D 25-OH Total 4 Months E55.9 - Vitamin D deficiency, unspecified Vitamin B12 and Folate 4 Months E53.8 - Deficiency of other specified B group vitamins UA CC w/rflx Micro + Cult 4 Months R30.0 - Dysuria Medications: Changed From levothyroxine 125 mcg PO QAM 90 days 90 tabs 3RF To levothyroxine 112 mcg PO QAM 90 days 90 tabs 1RF From mecobalamin (vitamin B12) 1,000 mcg PO QWEEK 90 days 13 tabs 3RF To mecobalamin (vitamin B12) 1,000 mcg PO DAILY 90 days 90 tabs 3RF
[2024-05-09 12:39] VITALS: BP 110/80; PULSE 45; O2SAT 100; BMI 31.3
[2024-05-09 13:02] VITALS: PULSE 56
== END 2024-05-09 13:21 | disposition home or self-care (01) ==
PROVIDERS: PCP Internal Medicine; Visit Provider Internal Medicine
DX: I12.9 Hypertensive chronic kidney disease with stage 1 through stage 4 chronic kidney disease, or unspecified chronic kidney disease (principal); E11.9 Type 2 diabetes mellitus without complications; N18.32 Chronic kidney disease, stage 3b; E78.00 Pure hypercholesterolemia, unspecified; E03.9 Hypothyroidism, unspecified; R63.4 Abnormal weight loss; E55.9 Vitamin D deficiency, unspecified; E53.8 Deficiency of other specified B group vitamins; G47.33 Obstructive sleep apnea (adult) (pediatric); M19.041 Primary osteoarthritis, right hand; M19.042 Primary osteoarthritis, left hand; M16.12 Unilateral primary osteoarthritis, left hip

== ENCOUNTER 2024-05-16 14:50 | Emergency (ER) | payer MEDICARE, SELFPAY ==
--- NOTE | ~2024-05-16 | CT_ITS ---
EXAMINATION: CT HEAD WITHOUT CONTRAST (STROKE PROTOCOL) CLINICAL INFORMATION: Stroke protocol. Dizziness and unresponsiveness. COMPARISON: None available. TECHNIQUE: Contiguous axial imaging was performed from the skull base to vertex without intravenous administration of contrast. This CT examination was performed using dose optimization techniques as appropriate, variously including the following: *Automated exposure control *Adjustment of mA and/or kV according to patient size (this includes techniques or standardized protocols for targeted exams where dose is matched to indication/reason for exam; i.e. extremities or head) *Use of iterative reconstruction technique DLP: 751. mGy-cm FINDINGS: No acute intracranial hemorrhage. No evidence of acute/subacute cerebral or cerebellar infarction. There is mild microvascular ischemic change. No midline shift or mass effect. No extra-axial fluid collection. The ventricles are normal in size. The ocular lenses are surgically absent. There is scattered paranasal sinus mucosal disease. There is a tiny inferior right mastoid air cell effusion. CT/CT head for STROKE IMPRESSION: No acute intracranial pathology. Mild microvascular ischemic change. This critical result was discussed with Rebeca Garcia MD at hours on . It was ascertained that the content and urgency of the report was understood at the time of direct communication. Electronically signed by: David Ward DO 05/16/2024 03:47 PM CAROL
--- NOTE | ~2024-05-16 | CT_ITS ---
EXAMINATION: CTA NECK WITH CONTRAST (STROKE) CTA BRAIN WITH CONTRAST (STROKE) CLINICAL INFORMATION: Suspect acute stroke. Assess for major vessel occlusion. Please call report. COMPARISON: None available. TECHNIQUE: CTA of the head and neck was performed in the axial plane from the mediastinum to the skull vertex using 70 mL Omnipaque 300 intravenous contrast. Additional reformatted multiplanar images including maximum intensity projection MIP images are generated on the CT workstation. This CT examination was performed using dose optimization techniques as appropriate, variously including the following: *Automated exposure control *Adjustment of mA and/or kV according to patient size (this includes techniques or standardized protocols for targeted exams where dose is matched to indication/reason for exam; i.e. extremities or head) *Use of iterative reconstruction technique DLP: 1530 mGy-cm FINDINGS: The degree of stenosis determined by criteria similar to NASCET. CTA NECK: Three-vessel aortic arch. The innominate and bilateral subclavian arteries are patent. The origins and cervical segments of the common carotid arteries as well as the common carotid artery bifurcations are patent bilaterally. The cervical segments of the internal carotid arteries are also patent bilaterally. The origins and cervical segments of the vertebral arteries are patent bilaterally. No hemodynamically significant stenosis, dissection, or aneurysm. The visualized branches of the external carotid arteries are unremarkable. CTA HEAD: Anterior circulation: The petrous, cavernous, and supraclinoid segments of the internal carotid arteries are patent bilaterally. The major branches of the anterior and middle cerebral arteries as well as anterior communicating artery complex are patent. No large vessel occlusion, saccular aneurysm, or dissection. Posterior circulation: The intracranial vertebral arteries are patent bilaterally. The basilar artery is normal in course and caliber. The posterior cerebral and superior cerebellar arteries arise normally from the basilar summit. No aneurysm. On delayed imaging, the venous structures demonstrate normal contrast opacification. No filling defect. No abnormal intracranial enhancement. Soft tissues: No suspicious neck mass or cervical adenopathy. Lungs: Clear. Bones: No acute osseous abnormality. No lytic or blastic osseous lesions. Degenerative changes of the visualized spine. CT/CT angio head neck STROKE IMPRESSION: 1. CTA head demonstrates no large vessel occlusion, saccular aneurysm, or dissection. 2. CTA neck demonstrates no hemodynamically significant stenosis, dissection, or aneurysm. Electronically signed by: Jared Peace MD 05/16/2024 04:19 PM EST THOMAS
--- NOTE | 2024-05-16 15:13 | ED.GENADULT ---
HPI - General Adult General Chief complaint: General Medical Stated complaint: Dizzy Passed Out Time Seen by Provider: 05/16/24 15:32 Source: patient and family Mode of arrival: ambulatory Limitations: no limitations History of Present Illness ED Provider: Dr. Rebeca Garcia HPI narrative: patient comes to the emergency room accompanied by her family. According to the family, patient was sitting and suddenly had an episode of unresponsiveness lasting 30-45 seconds. Patient states that she had a mild headache afterwards. Patient states that overall she feels much better now. Denies any chest pain or shortness of breath. Denies any dizziness. According to the family, Around the same time, the patient had 1 episode of diarrhea and vomiting. Related Data Previous Rx's ?Medication ?Instructions ?Recorded lisinopril 5 mg tablet 5 mg PO DAILY 90 days #90 tabs 11/18/23 triamterene 75 0.5 tab PO QAM 90 days #45 tabs 11/18/23 mg-hydrochlorothiazide 50 mg tablet cholecalciferol (vitamin D3) 50 50 mcg PO DAILY #90 tabs 11/30/23 mcg (2,000 unit) tablet (Vitamin D3) simvastatin 20 mg tablet 20 mg PO BEDTIME 90 days #90 tabs 01/30/24 donepezil 5 mg tablet 5 mg PO BEDTIME 90 days #90 tabs 02/15/24 levothyroxine 112 mcg tablet 112 mcg PO QAM 90 days #90 tabs 05/09/24 mecobalamin (vitamin B12) 1,000 1,000 mcg PO DAILY 90 days #90 tabs 05/10/24 mcg chewable tablet Allergies Allergy/AdvReac Type Severity Reaction Status Date / Time acetaminophen [Percocet] Allergy Unknown Unknown Verified 05/16/24 15:18 oxycodone [Percocet] Allergy Unknown Unknown Verified 05/16/24 15:18 penicillin V Allergy Unknown Unknown Verified 05/16/24 15:18 Review of Systems Review of Systems: Constitutional : No Weight loss, No Fever, No Chills, No Night Sweats, No Fatigue, No Malaise ENT/Mouth : No Hearing loss, No Ear Pain, No Nasal Congestion, No Sinus Pain, No Hoarseness, No sore throat, No Rhinorrhea, No Swallowing Difficulty Eyes: No Eye Pain, No Swelling, No Redness, No Foreign Body, No Discharge, No Vision Changes Cardiovascular : No Chest Pain, No SOB, No Dyspnea on Exertion, No Orthopnea, No Edema, No Palpitations Respiratory : No Cough, No Sputum, No Wheezing, No Smoke Exposure, No Dyspnea Gastrointestinal : No Nausea, complaining of an episode of vomiting and diarrhea, No Constipation, No abdominal Pain, No Hematochezia, No Melena Genitourinary : no irregular bleeding, No Dysuria, No Urinary Frequency, No Hematuria, No Urinary Incontinence, No Urgency, No Flank Pain, No Urinary Flow Changes, No Hesitancy Musculoskeletal : No joint pain, No Myalgias, No Joint Swelling Skin : No Skin Lesions, No rash Neuro : No Weakness, No Numbness, No Paresthesias, 1 episode of near syncope /syncope,, No Dizziness, No Headache Psych : No Anxiety/Panic, No Depression, No SI/HI/AH/VH, No Social Issues, Heme/Lymph: No Bruising, No Bleeding,No Lymphadenopathy Endocrine : No Polyuria, No Polydipsia, No Temperature Intolerance [facility] Past Medical History Medical History Primary osteoarthritis of left hip Chronic kidney disease, stage III (moderate) Vitamin B12 deficiency (non anemic) Memory loss or impairment Obesity (BMI 30-39.9) Obstructive sleep apnea Acquired hypothyroidism Benign essential hypertension Pure hypercholesterolemia Vitamin D deficiency Hypothyroidism Hyperlipidemia Diabetes mellitus Hypertension Surgical History History of biopsy History of tonsillectomy History of laparoscopic cholecystectomy Family History Family History Father Medical history unknown Mother Medical history unknown Other Substance abuse Social History Social History Housing: Apartment Alcohol intake: current Alcohol intake frequency: 0-2 drinks per day Alcohol type: wine Patient Tobacco Use Status: Former Tobacco user Smoked in Last 30 Days: No e-Cigarette/Vaping Use: Never Used Second Hand Smoke Exposure: Yes Use of substances other than those prescribed or required for medical reasons: No Advance Directives: No Advance Directives Information Provided: No Do you have a plan to hurt others: No Plan service: No Current occupational status: retired Cognitive needs: Yes (Cane) Hearing needs: No Vision needs: No Physical Exam ED Vital Signs: Vital Signs - 24 hr 05/16/24 15:15 05/16/24 16:20 05/16/24 16:22 Temperature 96.9 F Pulse Rate 61 65 64 Respiratory Rate 16 Blood Pressure 116/37 L 110/40 L 98/39 L Pulse Oximetry 98 Oxygen Delivery Method Room Air 05/16/24 16:22 05/16/24 16:25 05/16/24 18:07 Temperature 97.7 F 98.0 F Pulse Rate 69 63 67 Respiratory Rate 16 16 Blood Pressure 127/52 L 118/50 L 108/50 L Pulse Oximetry 99 Oxygen Delivery Method Room Air 05/16/24 18:08 Temperature 98.0 F Pulse Rate 67 Respiratory Rate 16 Blood Pressure 108/50 L Pulse Oximetry Oxygen Delivery Method Room Air BMI result Body Mass Index 23.3 Const Other: Appearance: Alert. Oriented X3. No acute distress. Eyes: Pupils equal, round and reactive to light. ENT: Pharynx normal. Neck: Normal inspection. Neck supple. No lymph nodes noted. No crepitus CVS: Normal heart rate and rhythm. Pulses normal. Normal S1 and S2 Respiratory: No respiratory distress. Breath sounds normal. No Wheezing. No rales Abdomen: Soft and nontender. No rigidity. No distention. Skin: Skin warm and dry. Normal skin color. Normal skin turgor. Extremities: No lower extremity edema. No Lacerations. No Rash Neuro: Oriented X 3. No motor deficit. No sensory deficit. Moving all extremities. No slurred speech. CN 2 through 12 grossly intact Psych: calm, cooperative, normal affect Course Course Course Narrative: This is an RME: Additional HPI, ROS, PE not included below will be deferred to primary provider. RME assessment and note performed by: Yessenia Leonardo PA-C This is a 83-year old female, with a hx of CKD stage 3, ERYN, hypothyroidism, HTN, DM, who presents to the ER with a complaint of syncopal episode earlier. No neurologic deficits on exam, however given syncopal episode with dizziness and nausea, stroke alert initiated and brought back to main. Medications Administered Discontinued Medications Generic Name Dose Route Start Last Admin Trade Name Freq PRN Reason Stop Dose Admin Iohexol 100 ml 05/16/24 15:55 05/16/24 15:55 Iohexol 350 Mg/Ml 100 Ml Infus..Btl IV 05/16/24 15:56 70 ml ONCE ONE Administration Medical Decision Making Medical Decision Making [facility] Narrative: my interpretation of EKG: Normal sinus rhythm, heart rate 67, no ST segment depression or elevation, nonspecific T-wave inversion in lead 3, QTC 416 my interpretation of labs: Patient's white blood cell count 11.2, likely reactive leukocytosis versus gastroenteritis. INR within normal limits, no significant chemistry abnormality, normal glucose. TSH decreased at 0.15 but free T4 is normal. Urinalysis negative for UTI. Toxicology negative for drugs of abuse or alcohol levels. - orthostatic vitals negative here in the emergency room, patient is completely awake, alert, asymptomatic since the patient arrived to the ED - CT scans do not show any acute abnormality. - Family and patient reported syncope/ near syncopal episode around the time patient had an episode of vomiting and diarrhea, patient likely had a vasovagal episode. Here in the emergency room, patient walked to the bathroom, patient was asymptomatic Differential Diagnosis Differential Diagnoses: The differential diagnosis associated with the presentation includes ( as above) Admission/Observation Consideration of admission/observation: Escalation of care including admission/observation considered ( given patient's initial presentation and history, observation was considered) Lab Data MDM Lab Attestation statement: I reviewed the patient's lab results. 05/16/24 16:07 05/16/24 16:07 Labs: Lab Results 05/16/24 05/16/24 Range/Units 16:07 17:11 WBC 11.2 H (4.8-10.8) X10*3/uL RBC 4.14 L (4.20-5.50) X10*6/uL Hgb 13.6 (12.0-16.0) g/dl Hct 39.7 (37.0-47.0) % MCV 95.9 (80.0-98.0) fL MCH 32.9 (27.0-33.0) pg MCHC 34.3 (31.0-35.0) g/dl RDW 14.0 (11.0-16.0) % Plt Count 245 (160-400) X10*3/uL MPV 10.0 (9.4-12.3) fL Immature Gran % (Auto) 0.3 (0.0-0.4) % Neut % (Auto) 85.0 H (45-73) % Lymph % (Auto) 9.3 L (20-40) % [place] % (Auto) 4.7 (2-11) % Eos % (Auto) 0.3 (0-4) % Baso % (Auto) 0.4 (0-2) % Lymph # (Auto) 1.0 L (1.2-4.9) X10*3/uL [place] # (Auto) 0.5 (0.1-1.2) X10*3/uL Eos # (Auto) 0.0 (0.0-0.4) X10*3/uL Baso # (Auto) 0.0 (0.0-0.2) X10*3/uL Abs Immat Gran (auto) 0.03 (0.00-0.03) X10*3/uL Absolute Neuts (auto) 9.6 H (2.0-8.3) x10*3/uL Absolute Nucleated RBC 0.000 (0.0-0.012) X10*3/uL Nucleated RBC % (auto) 0.0 (0.0-0.2) /100WBC PT 12.4 (10.9-12.4) SEC INR 1.1 (0.9-1.1) APTT 31.1 (26.0-36.8) SEC Sodium 137 (135-145) mmol/L Potassium 3.9 (3.3-5.1) mmol/L Chloride 102 (96-108) mmol/L Carbon Dioxide 22 (22-29) mmol/L Anion Gap 17 (12-20) BUN 21 H (9-16) mg/dL Creatinine 1.37 (0.5-1.4) mg/dL Estim Creat Clear Calc 27.5 Estimated GFR 37 Random Glucose 119 H (60-115) mg/dL Calcium 9.8 D (8.4-10.2) mg/dL Troponin I High Sens 10.9 (<3.5-17.0) ng/L Triglycerides 99 (<150) mg/dL Cholesterol 170 (<200) mg/dL LDL Cholesterol, Calc 111 H (<100) mg/dL HDL Cholesterol 40 L (>40) mg/dL TSH 0.15 L (0.32-4.0) uIU/mL Free T4 1.76 (0.71-1.85) ng/dL Urine Color Yellow Urine Appearance Clear Urine pH 7.0 (5.0-9.0) Ur Specific [place] 1.020 (1.005-1.025) Urine Protein Negative (Neg-Trace) mg/dL Urine Glucose (UA) Negative (Negative) mg/dL Urine Ketones Negative (Negative) mg/dL Urine Blood Negative (Negative) Urine Nitrite Negative (Negative) Ur Leukocyte Esterase Negative (Negative) Urine Opiates Screen Not Detected (Not Detect) Ur Buprenorphine Scrn Not Detected (Not Detect) ng/mL Ur Oxycodone Screen Not Detected (Not Detect) ng/mL Urine Methadone Screen Not Detected (Not Detect) ng/mL Urine Fentanyl Screen Not Detected (Not Detect) Ur Barbiturates Screen Not Detected (Not Detect) Ur Phencyclidine Scrn Not Detected (Not Detect) Ur Amphetamines Screen Not Detected (Not Detect) U Benzodiazepines Scrn Not Detected (Not Detect) Urine Cocaine Screen Not Detected (Not Detect) U Marijuana (THC) Screen Not Detected (Not Detect) Ethyl Alcohol < 10 mg/dL Independent Interpretation I performed an independent interpretation of an: CT Scan Radiology Impression Discussion of test interpretation with radiology: I have reviewed the radiologist's reading. Radiologist Impression: CTA NECK: Three-vessel aortic arch. The innominate and bilateral subclavian arteries are patent. The origins and cervical segments of the common carotid arteries as well as the common carotid artery bifurcations are patent bilaterally. The cervical segments of the internal carotid arteries are also patent bilaterally. The origins and cervical segments of the vertebral arteries are patent bilaterally. No hemodynamically significant stenosis, dissection, or aneurysm. The visualized branches of the external carotid arteries are unremarkable. CTA HEAD: Anterior circulation: The petrous, cavernous, and supraclinoid segments of the internal carotid arteries are patent bilaterally. The major branches of the anterior and middle cerebral arteries as well as anterior communicating artery complex are patent. No large vessel occlusion, saccular aneurysm, or dissection. Posterior circulation: The intracranial vertebral arteries are patent bilaterally. The basilar artery is normal in course and caliber. The posterior cerebral and superior cerebellar arteries arise normally from the basilar summit. No aneurysm. On delayed imaging, the venous structures demonstrate normal contrast opacification. No filling defect. No abnormal intracranial enhancement. Soft tissues: No suspicious neck mass or cervical adenopathy. Lungs: Clear. Bones: No acute osseous abnormality. No lytic or blastic osseous lesions. Degenerative changes of the visualized spine. CT/CT angio head neck STROKE IMPRESSION: 1. CTA head demonstrates no large vessel occlusion, saccular aneurysm, or dissection. 2. CTA neck demonstrates no hemodynamically significant stenosis, dissection, or aneurysm. Critical Care Time Critical Care Time Critical Care Time: Yes Total Critical Care Time: 35 Attestation: I have personally provided critical care time. Time includes review of lab data, radiology results, discussion with consultants, and monitoring for potential decompensation. Intervention performed as documented. Discharge Plan Discharge Clinical Impression: Vasovagal syncope Patient Disposition: Home, Self-Care Instructions: Syncope in Older Adults (ED) Additional Instructions: Please follow-up with your primary care physician tomorrow. If you have any worsening or new symptoms, please return to the emergency room or call 911 Prescriptions: No Action lisinopril 5 mg tablet 5 mg PO DAILY 90 Days Qty: 90 3RF triamterene-hydrochlorothiazid 75-50 mg tablet 0.5 tab PO QAM 90 Days Qty: 45 3RF cholecalciferol (vitamin D3) [Vitamin D3] 50 mcg (2,000 unit) tablet 50 mcg PO DAILY Qty: 90 3RF simvastatin 20 mg tablet 20 mg PO BEDTIME 90 Days Qty: 90 3RF donepezil 5 mg tablet 5 mg PO BEDTIME 90 Days Qty: 90 1RF levothyroxine 112 mcg tablet 112 mcg PO QAM 90 Days Qty: 90 1RF mecobalamin (vitamin B12) 1,000 mcg tablet,chewable 1,000 mcg PO DAILY 90 Days Qty: 90 3RF Interventions: ED Discharge Assessment Last Done: 05/16/24 18:08 Discharge Date/Time: 05/16/24 18:16 Print Language: Singaporean
[2024-05-16 15:15] VITALS: BP 116/37; PULSE 61; RESP 16; TEMP 36.1; O2SAT 98; BMI 23.3
--- NOTE | 2024-05-16 15:20 | ECG_ITS ---
Test Reason : stroke rule out Blood Pressure : / mmHG Vent. Rate : 067 BPM Atrial Rate : 067 BPM P-R Int : 140 ms QRS Dur : 078 ms QT Int : 400 ms P-R-T Axes : 055 -07 013 degrees QTc Int : 422 ms Normal sinus rhythm Normal ECG When compared with ECG of 25-FEB-2013 06:22, Premature supraventricular complexes are no longer Present Referred By: Yessenia Leonardo Electronically Signed By:RICKY LUCIANO
[2024-05-16] MEDS: iohexoL 350 MG/ML 100 ML INFUS..BTL IV (15:55)
[2024-05-16 16:12] LABS: Basophils Percent Auto 0.4 % (0-2); Eosinophils Percent Auto 0.3 % (0-4); Hematocrit 39.7 % (37.0-47.0); Hemoglobin 13.6 g/dl (12.0-16.0); Imm Gran Abs Auto 0.03 X10*3/uL (0.00-0.03); Imm Gran Pct Auto 0.3 % (0.0-0.4); Lymphocytes Percent Auto 9.3 % (20-40); MANUAL DIFF FLAG NO; Mean Corpuscular HGB Conc 34.3 g/dl (31.0-35.0); Mean Corpuscular Hemoglobin 32.9 pg (27.0-33.0); Mean Corpuscular Volume 95.9 fL (80.0-98.0); Monocytes Absolute Auto 0.5 X10*3/uL (0.1-1.2); Monocytes Percent Auto 4.7 % (2-11); Neutrophils Absolute Auto 9.6 x10*3/uL (2.0-8.3); Platelet Count 245 X10*3/uL (160-400); Red Blood Count 4.14 X10*6/uL (4.20-5.50); White Blood Count 11.2 X10*3/uL (4.8-10.8)
--- NOTE | 2024-05-16 16:18 | MHC.EDTECH ---
This pct tried 4 times ,to get Patient stroke INR ,was unable ,Because machine was reading era all 4 times ,Provider Jose aware and said it was fine .
[2024-05-16 16:20] VITALS: BP 110/40; PULSE 65
[2024-05-16 16:22] VITALS: BP 127/52; BP 98/39; PULSE 64; PULSE 69
[2024-05-16 16:22] LABS: INTERNATIONAL NORM RATIO 1.1 (0.9-1.1); Prothrombin Time 12.4 SEC (10.9-12.4)
[2024-05-16 16:25] VITALS: BP 118/50; PULSE 63; RESP 16; TEMP 36.5; O2SAT 99
[2024-05-16 16:25] LABS: Partial Thromboplastin Time 31.1 SEC (26.0-36.8)
[2024-05-16 16:31] LABS: Stroke Lab Use COMPLETE
[2024-05-16 16:34] LABS: Anion Gap 17 (12-20); Blood Urea Nitrogen 21 mg/dL (9-16); Calcium 9.8 mg/dL (8.4-10.2); Carbon Dioxide 22 mmol/L (22-29); Chloride 102 mmol/L (96-108); Cholesterol 170 mg/dL (<200); Creatinine Clr Calc Pharmacy 27.5; Estimated Glomerular Filt Rate 37; Glucose Random 119 mg/dL (60-115); HDL Cholesterol 40 mg/dL (>40); LDL Cholesterol Calculated 111 mg/dL (<100); Potassium 3.9 mmol/L (3.3-5.1); Sodium 137 mmol/L (135-145); Triglycerides 99 mg/dL (<150)
[2024-05-16 16:36] LABS: Ethanol < 10 mg/dL
[2024-05-16 16:38] LABS: Troponin-I High Sensitivity 10.9 ng/L (<3.5-17.0)
[2024-05-16 16:52] LABS: TSH reflex Free T4 0.15 uIU/mL (0.32-4.0)
[2024-05-16 17:28] LABS: Amphetamine Screen Urine Not Detected (Not Detect); Barbiturates, Urine Not Detected (Not Detect); Benzodiazepines Screen Urine Not Detected (Not Detect); Buprenorphine Scr Not Detected (Not Detect); Cannabinoid Screen Urine Not Detected (Not Detect); Cocaine Screen Urine Not Detected (Not Detect); Fentanyl, urine Not Detected (Not Detect); Methadone Screen, Urine Not Detected (Not Detect); Opiate Screen Urine Not Detected (Not Detect); Oxycodone Screen Urine Not Detected (Not Detect); Phencyclidine Screen Urine Not Detected (Not Detect)
[2024-05-16 17:31] LABS: Free T4 (Free Thyroxine) 1.76 ng/dL (0.71-1.85)
[2024-05-16 17:35] LABS: Appearance Urine Clear; Color Urine Yellow; Glucose Urine UA Negative (Negative); Leukocyte Esterase Urine Negative (Negative); Nitrite Urine Negative (Negative); Urine Blood Negative (Negative); Urine Ketones Negative (Negative); Urine Protein Negative (Neg-Trace)
[2024-05-16 18:07] VITALS: BP 108/50; PULSE 67; RESP 16; TEMP 36.7
[2024-05-16 18:08] VITALS: BP 108/50; PULSE 67; RESP 16; TEMP 36.7
[2024-05-19 10:39] LABS: Glucose, Whole Blood 106 mg/dL (60-115)
== END 2024-05-16 18:16 | disposition home or self-care (01) ==
PROVIDERS: Physician Assistant Medical; Emergency Provider Emergency Medicine; PCP Internal Medicine
DX: R55 Syncope and collapse (principal); R42 Dizziness and giddiness; R51.9 Headache, unspecified; R40.4 Transient alteration of awareness; Z51.81 Encounter for therapeutic drug level monitoring; Z79.899 Other long term (current) drug therapy; Z87.891 Personal history of nicotine dependence
CPT/HCPCS: 36415; 70450; 70496; 70498; 80048; 80061; 80307; 81003; 82947; 84439; 84443; 84484; 85025; 85610; 85730; 93005; 99284; Q9967

== ENCOUNTER → 2024-05-16 15:20 | Outpatient (BNV) | payer MEDICARE, SELFPAY | PROVIDERS: Emergency Provider Emergency Medicine; PCP Internal Medicine; Visit Provider Internal Medicine | DX: R42 Dizziness and giddiness (principal); R55 Syncope and collapse | CPT/HCPCS: 93010 ==

== ENCOUNTER 2024-08-27 09:39 | Outpatient (REF) | payer MEDICARE, SELFPAY ==
[2024-08-27 10:02] LABS: MANUAL DIFF FLAG NO
[2024-08-27 10:23] LABS: Basophils Absolute Auto 0.1 X10*3/uL (0.0-0.2); Basophils Percent Auto 1.1 % (0-2); Eosinophils Absolute Auto 0.3 X10*3/uL (0.0-0.4); Eosinophils Percent Auto 3.8 % (0-4); Hematocrit 41.3 % (37.0-47.0); Hemoglobin 13.6 g/dl (12.0-16.0); Imm Gran Abs Auto 0.01 X10*3/uL (0.00-0.03); Imm Gran Pct Auto 0.1 % (0.0-0.4); Lymphocytes Absolute Auto 1.9 X10*3/uL (1.2-4.9); Lymphocytes Percent Auto 26.8 % (20-40); Mean Corpuscular HGB Conc 32.9 g/dl (31.0-35.0); Mean Corpuscular Hemoglobin 32.8 pg (27.0-33.0); Mean Corpuscular Volume 99.5 fL (80.0-98.0); Mean Platelet Volume 10.6 fL (9.4-12.3); Monocytes Absolute Auto 0.4 X10*3/uL (0.1-1.2); Monocytes Percent Auto 5.8 % (2-11); Neutrophils Absolute Auto 4.4 x10*3/uL (2.0-8.3); Neutrophils Percent Auto 62.4 % (45-73); Platelet Count 271 X10*3/uL (160-400); Red Blood Count 4.15 X10*6/uL (4.20-5.50); Red Cell Distribution Width 14.5 % (11.0-16.0)
--- OUTSIDE RECORDS SUMMARY | 2024-08-27 10:37 | XMS_ITS | Patient Health Record ---
[facility] Address [address] [place] [address] Care Team Providers Care Cellophane Tester Name Role Phone Buffy Phelps MDh Primary Care Provider Wanda Valenzuela Unavailable [phone] Allergies Allergen (clinical drug ingredient) Drug/Non Drug Allergy documented on EMR Reaction Allergy Type Onset Date Status Penicillin Unknown Drug Allergy Active codeine Codeine Unknown Drug Allergy Active Reason For Referral No Information Medications Medication SIG (Take, Route, Frequency, Duration) Notes Start Date End Date Status Baby Aspirin Active Lisinopril 5 MG 1 tablet Orally Once a day Active Simvastatin 20 MG 1 tablet in the even ing Orally Once a day Active Levothyroxine Sodium 125 MCG 1 tablet on an empty stomach in the morning Orally Once a day Active Triamterene 50 MG 1 capsule Orally Onc e a day Active Social History Tobacco Use: Social History Observation Description Date Details (start date - stop date) Former Smoker NA - NA Tobacco Use/Smoking Question Answer Notes Are you a: former smoker Additional Findings: Tobacco Non-User Current no n-smoker Alcohol Screen Question Answer Notes Did you have a drink contain ing alcohol in the past year? Yes How often did you have a dri nk containing alcohol in the past year? Monthly or less (1 point) Points 1 Interpretation Negative Tobacco use other than smoking: Question Answer Notes Are you an other tobacco user? 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 Plan Of Treatment Pending Test Test Name Order Date 35274- Debride <25 sq cm 12/12/2017 Insurance Providers Payer Name Payer Address Payer Phone Subscriber Number Group Number Insured Name Patient Relationship to Insured Coverage Start Date Coverage End Date [employer] [address] [place] [phone] [id number] Maximo alan Angle Self - patient is the insured Medical (General) History Medical History History ICD Code Cancer High blood pressure Gall bladder problems Measles Mumps Chicken pox thyroid Surgical History Surgery Date(Month/Year) tonsillectomy 194 gall bladder removed
[2024-08-27 11:24] LABS: Alanine Aminotransferase 11 U/L (0-31); Albumin Level 3.8 g/dL (3.5-5.0); Alkaline Phosphatase 48 U/L (39-117); Anion Gap 11 (12-20); Aspartate Amino Transferase 24 U/L (5-31); Bilirubin Total 0.5 mg/dL (0.0-1.0); Blood Urea Nitrogen 15 mg/dL (9-16); Calcium 9.7 mg/dL (8.4-10.2); Carbon Dioxide 29 mmol/L (22-29); Chloride 106 mmol/L (96-108); Cholesterol 212 mg/dL (<200); Estimated Glomerular Filt Rate 54; Glucose Fasting 91 mg/dL (60-99); HDL Cholesterol 57 mg/dL (>40); LDL Cholesterol Calculated 135 mg/dL (<100); Potassium 4.2 mmol/L (3.3-5.1); Sodium 142 mmol/L (135-145); Total Protein 6.7 g/dL (6.5-8.0); Triglycerides 101 mg/dL (<150)
[2024-08-27 11:45] LABS: Vitamin D 25-OH Total 37.1 ng/mL (>30)
[2024-08-27 11:57] LABS: Folate 7.2 ng/mL (> or = 4.0); Vitamin B12 203 pg/mL (200-900)
[2024-08-27 13:06] LABS: Appearance Urine Clear; Color Urine Yellow; Glucose Urine UA Negative (Negative); Leukocyte Esterase Urine Negative (Negative); Nitrite Urine Negative (Negative); PH 8.5 (5.0-9.0); Specific Gravity - Urine 1.015 (1.005-1.025); Urine Blood Negative (Negative); Urine Ketones Negative (Negative); Urine Protein Negative (Neg-Trace)
== END 2024-08-27 09:40 | disposition home or self-care (01) ==
LOC: HO.LAB 09:39
PROVIDERS: PCP Internal Medicine; Visit Provider Internal Medicine
DX: D64.9 Anemia, unspecified (principal); E03.9 Hypothyroidism, unspecified; E78.00 Pure hypercholesterolemia, unspecified; E53.8 Deficiency of other specified B group vitamins; E55.9 Vitamin D deficiency, unspecified; R30.0 Dysuria
CPT/HCPCS: 36415; 80053; 80061; 81003; 82306; 82607; 82746; 84439; 84443; 85025

== ENCOUNTER 2024-09-09 13:24 | Outpatient (AMB) | payer MEDICARE, SELFPAY ==
--- NOTE | 2024-09-09 13:29 | MHC.PC.OV ---
Vital Signs 09/09/24 13:30 Height 5 ft 5 in Weight 193 lb 8 oz BMI 32.2 BP 122/70 Blood Pressure Location Lt brachial Position Sitting Pulse 53 Pulse Source Pulse Oximeter Pulse Oximetry (%) 98 Oxygen Delivery Method Room Air Intake Visit Reasons: HTN, hyperlipidemia, hypothyroidism, dementia [employer] Loader And Unloader Required: No Accompanied by: Self / Same As Patient Allergies acetaminophen [Percocet] Allergy (Unknown, Verified 09/09/24 14:13) Unknown oxycodone [Percocet] Allergy (Unknown, Verified 09/09/24 14:13) Unknown penicillin V Allergy (Unknown, Verified 09/09/24 14:13) Unknown Medication List - Last Reconciled 09/09/24 by Hector Phelps MD cholecalciferol (vitamin D3) (Vitamin D3) 50 mcg PO DAILY donepezil 5 mg PO BEDTIME 90 days levothyroxine 112 mcg PO QAM 90 days lisinopril 5 mg PO DAILY 90 days mecobalamin (vitamin B12) 1,000 mcg PO DAILY 90 days simvastatin 20 mg PO BEDTIME 90 days triamterene-hydrochlorothiazid 75-50 mg 0.5 tabs PO QAM 90 days Tobacco use date assessed: 09/09/24 Fall risk assessment: No Falls in past year Last assessed Fall Risk: 09/09/24 Dental Screening Dental Screen Date: 09/09/24 Did you have a dental visit in the last 12 months?: No Did you have a dental problem in the last 6 months where you did not have access to dental care?: No Was dental information given to patient?: No HPI HTN, hyperlipidemia, hypothyroidism, dementia HPI Details Patient comes in today for her follow-up visit - is again accompanied by her daughter Patient states that she feels okay She denies any headaches or dizziness Denies any chest pains, no increased shortness of breath No nausea /vomiting, no abdominal pain No change in bowel habits noted She had her follow-up labs done a couple of weeks ago - to discuss her results [facility] Medical History Primary osteoarthritis of left hip Chronic kidney disease, stage III (moderate) Vitamin B12 deficiency (non anemic) Memory loss or impairment Obesity (BMI 30-39.9) Obstructive sleep apnea Acquired hypothyroidism Benign essential hypertension Pure hypercholesterolemia Vitamin D deficiency Hypothyroidism Hyperlipidemia Diabetes mellitus Hypertension Surgical History History of biopsy History of tonsillectomy History of laparoscopic cholecystectomy Family History Father Medical history unknown Mother Medical history unknown Other Substance abuse Social History Housing: Apartment Alcohol intake: current Alcohol intake frequency: 0-2 drinks per day Alcohol type: wine Patient Tobacco Use Status: Former Tobacco user e-Cigarette/Vaping Use: Never Used Second Hand Smoke Exposure: Yes service: No Current occupational status: retired Cognitive needs: Yes (Cane) Hearing needs: No Vision needs: No Questionnaire PHQ-9 Over the last 2 weeks, how often have you been bothered by any of the following problems? 1. Little interest or pleasure in doing things: not at all 2. Feeling down, depressed, or hopeless: not at all 3. Trouble falling or staying asleep, or sleeping too much: not at all 4. Feeling tired or having little energy: not at all 5. Poor appetite or overeating: not at all 6. Feeling bad about yourself - or that you are a failure or have let yourself or your family down: not at all 7. Trouble concentrating on things, such as reading the newspaper or watching television: not at all 8. Moving or speaking so slowly that other people could have noticed. Or the opposite - being so fidgety or restless that you have been moving around a lot more than usual: not at all 9. Thoughts that you would be better off or of hurting yourself in some way: not at all Total score: 0 Depression Screening Interpretation: Negative Depression Screening Done: Yes 76669 - PHQ-9 Billing: Yes Source: Developed by Drs. Mario Thomas, Soni Guthrie, Adrian Villa and colleagues, with an educational suraj from [employer]. Thrive Questionnaire Date Thrive assessed: 09/09/24 I am a: Patient What is your living situation today?: I have a steady place to live Within the past 12 months, did the food you bought not last and you didn't have the money to get more?: Never true Within the past 12 months, did you worry whether your food would run out before you got money to buy more?: Never true Do you have trouble paying for medicines?: No Do you have trouble getting transportation to medical appointments?: No Do you have trouble paying your heating and electricity bill?: No Do you have trouble taking care of your child, family member or friend?: No Do you have trouble with day-to-day activities such as bathing, preparing meals, shopping, managing finances, etc.?: No Are you currently unemployed and looking for a job?: No Are you interested in more education?: No Please select the resources that you would like help with: None Currently or been in a relationship where the following occur: No concerns reported THRIVE Score: 0 AUDIT C Alcohol Use Questionnaire (AUDIT-C) 1. How often do you have a drink containing alcohol?: Monthly or less 2. How many drinks containing alcohol do you have on a typical day when you are drinking?: 1 or 2 3. How often do you have six or more drinks on one occasion?: Never Total Score: 1 Score Reviewed/Action Taken: Yes DILLON-7 AMB Questionnaire DILLON-7 Date DILLON - 7 assessed: 09/09/24 Feeling nervous, anxious, or on edge: 0 = Not at all Not being able to stop or control worryin = Not at all Worrying too much about different things: 0 = Not at all Trouble relaxin = Not at all Being so restless that it is hard to sit still: 0 = Not at all Becoming easily annoyed or irritable: 0 = Not at all Feeling afraid as if something awful might happen: 0 = Not at all Total DILLON-7 score (0-4 normal; 5-9 mild; 10-14 moderate; 15-21 severe): 0 Source: Developed by Drs. Mario Thomas, Soni Guthrie, Adrian Villa and colleagues, with an educational suraj from [employer]. Review of Systems Const Denies chills, Denies fatigue, Denies fever(s) and Denies headache(s) ENT Denies dysphagia, Denies dizziness, Denies otalgia, Denies headache(s), Denies neck pain, Denies odynophagia and Denies sore throat Card Denies chest pain, Denies palpitations and Denies dyspnea Resp Denies chest congestion, Denies cough and Denies dyspnea GI Denies abdominal pain, Reports constipation (on and off), Denies dysphagia, Denies heartburn, Denies diarrhea, Denies nausea, Denies odynophagia and Denies vomiting Denies difficulty voiding, Denies nocturia, Denies dysuria and Denies urinary urgency Musc Denies back pain, Reports arthralgias (behind the left hip, worse with prolonged walking ), Denies joint swelling and Denies neck pain Skin/Breast Denies rash Neuro Reports confusion (on and off, per daughter), Denies dizziness, Denies headache(s) and Reports memory loss (on and off, per patient's daughter) Psych Reports confusion (on and off, per daughter) and Reports memory loss (on and off, per patient's daughter) Endo Denies fatigue and Denies palpitations Suresh/Lymph Details: on and off swelling of her lower legs and feet lately Physical exam (Primary Care) Vital Signs: Last Vital Signs Pulse 53 09/09/24 13:30 BP 122/70 09/09/24 13:30 Pulse Ox 98 09/09/24 13:30 Oxygen Delivery Method Room Air 09/09/24 13:30 BMI result Body Mass Index 32.2 Tobacco/Smoking Status: Tobacco use Status Tobacco use date assessed 09/09/24 09/09/24 13:40 Patient Tobacco Use Status Former Tobacco user 09/09/24 13:40 e-Cigarette/Vaping Use Never Used 09/09/24 13:40 PHQ-9: PHQ-9 Score PHQ-9: Total score 0 09/09/24 14:20 Depression Screening Interpretation: Negative Thrive Assessment: Date of Thrive Assessment Date Thrive assessed 09/09/24 09/09/24 13:40 Currently or been in a relationship where the following occur: No concerns reported Const General: confusion (on and off, per daughter) Orientation/consciousness: confusion (on and off, per daughter) HENMT Ears: TM's normal bilaterally and EAC's normal Throat: Yes posterior oropharynx normal and Yes tonsils normal (no TP congestion noted) Neck Neck: Yes no lymphadenopathy and Yes supple Thyroid: Thyroid normal Resp Auscultation: clear to auscultation bilaterally, no rales and no wheezes Cardio Rate: regular rate Rhythm: regular rhythm Heart sounds: no murmurs GI Palpation (GI): Soft to palpation and nontender Auscultation: normal bowel sounds General: Yes no CVA tenderness Back/Spine/Pelvis Back: no CVA tenderness Thoracic/Lumbar Spine: No lumbar spinal tenderness Skin Rashes: no rashes Neuro General: confusion (on and off, per daughter) Extrem General: Yes no clubbing, cyanosis or edema Left lower extremity: hip/thigh Details: tenderness Location: of the hip Location: posteriorly; no swelling Results Reviewed Results Reviewed: Laboratory Tests 08/31/23 05/09/24 08/27/24 13:34 10:30 10:01 WBC 7.0 Hgb 13.6 Hct 41.3 Plt Count 271 Sodium 142 Potassium 4.2 Creatinine 0.98 Estimated GFR 54 Fasting Glucose 91 Hgb A1c (Clinic) 6.0 Calcium 9.7 AST 24 ALT 11 Triglycerides 101 Cholesterol 212 H LDL Cholesterol, Calc 135 H HDL Cholesterol 57 Vitamin B12 223 203 25-OH Vitamin D Total 37.1 TSH 21.90 H Free T4 1.10 Ur Specific [place] Urine Protein Urine Glucose (UA) Urine Blood Urine Nitrite Ur Leukocyte Esterase 08/27/24 12:30 WBC Hgb Hct Plt Count Sodium Potassium Creatinine Estimated GFR Fasting Glucose Hgb A1c (Clinic) Calcium AST ALT Triglycerides Cholesterol LDL Cholesterol, Calc HDL Cholesterol Vitamin B12 25-OH Vitamin D Total TSH Free T4 Ur Specific [place] 1.015 Urine Protein Negative Urine Glucose (UA) Negative Urine Blood Negative Urine Nitrite Negative Ur Leukocyte Esterase Negative Coding Level of Care Code Est Pt Level 4 (64306) Complex EM visit Add On G2211 Diagnoses Pure hypercholesterolemia E78.00 Benign essential hypertension I10 Acquired hypothyroidism E03.9 Type 2 diabetes mellitus without complication, without long-term current use of insulin E11.9 Diabetes mellitus complication status: without complication Diabetes mellitus snf insulin use: without ferry terminal agent use Diabetes mellitus type: type 2 Stage 3a chronic kidney disease N18.31 Chronic kidney disease stage 3 subtype: stage 3a (GFR 45-59) Vitamin D deficiency E55.9 Vitamin B12 deficiency (non anemic) E53.8 Obstructive sleep apnea G47.33 Primary osteoarthritis of both hands M19.041; M19.042 Osteoarthritis type: primary Primary osteoarthritis of left hip M16.12 Memory loss or impairment R41.3 Obesity (BMI 30-39.9) E66.9 Additional Codes PHQ-9 - 54617 - PHQ-9 Billing: Yes ([id number]) Assessment & Plan Assessment & Plan (1) Pure hypercholesterolemia: Code(s): E78.00 - Pure hypercholesterolemia, unspecified Category: Medical Plan: Results of her labs done a couple of weeks ago reviewed and discussed with patient - have advised patient's daughter that her cholesterol levels have increased again slightly from previous and her LDL cholesterol is now at 135 mg/dl Reinforced low cholesterol diet Continue Simvastatin 20 mg QD for now but have advised that we may have to adjust her dose or switch her over to another more potent statin if her cholesterol numbers do not improve significantly over the next few months Will recheck her labs and fasting lipids in 4 months for follow up (2) Benign essential hypertension: Code(s): I10 - Essential (primary) hypertension Category: Medical Plan: Reinforced low sodium diet - goal is systolic BP of at least 130 to 140 mm or less Continue Triamterene-HCT 75-50 mg 1/2 tablet QD and Lisinopril 5 mg QD (3) Acquired hypothyroidism: Code(s): E03.9 - Hypothyroidism, unspecified Category: Medical Plan: Patient's TSH level has increased significantly to 21.9 uIU/ml but her free T4 remains normal at 1.10 ng/ml - this is likely Sae's but patient remains clinically euthyroid Continue Levothyroxine 112 mcg QD Will recheck her TFTs in 4 months for follow up (4) Diabetes mellitus: Code(s): E11.9 - Type 2 diabetes mellitus without complications Category: Medical Qualifiers: Diabetes mellitus complication status: without complication Diabetes mellitus ferry terminal agent insulin use: without snf use Diabetes mellitus type: type 2 Qualified Code(s): E11.9 - Type 2 diabetes mellitus without complications Plan: Her in-office HgbA1c was at 6.0% when last checked a couple of weeks ago on 08/25/2024 (his HgbA1c was normal at 5.4% when previously checked in December 2023) - goal is HgbA1c of at least <7.0% Reinforced diabetic diet Patient has not required any Rx for her diabetes and has been able to keep her blood sugar controlled with diet modification alone so far Will continue to monitor her glycemic control closely (5) Chronic kidney disease, stage III (moderate): Code(s): N18.30 - Chronic kidney disease, stage 3 unspecified Category: Medical Qualifiers: Chronic kidney disease stage 3 subtype: stage 3a (GFR 45-59) Qualified Code(s): N18.31 - Chronic kidney disease, stage 3a Plan: Her renal function appears to have improved from previous on her recent labs and patient is now back in CKD stage 3a from her previous 3b staging, most likely due to improved hydration Will continue to monitor her renal function closely (6) Vitamin D deficiency: Code(s): E55.9 - Vitamin D deficiency, unspecified Category: Medical Plan: Continue Vitamin D3 2000 units QD (7) Vitamin B12 deficiency (non anemic): Code(s): E53.8 - Deficiency of other specified B group vitamins Category: Medical Plan: Her B12 level is still borderline low and have not changed much from previous Continue Vitamin B12 1000 mcg QD Patient continues to drink a glass of wine every night and states that she has no intention of quitting - this is likely contributing to her low B12 level (8) Obstructive sleep apnea: Code(s): G47.33 - Obstructive sleep apnea (adult) (pediatric) Category: Medical Plan: Patient has used her CPAP device in the past with good results but states that she has not needed to use her device in a few years now - feels that she sleeps well at night and does not have any symptoms of daytime fatigue or somnolence and would rather not go back on it (9) Osteoarthritis of hands, bilateral: Code(s): M19.041 - Primary osteoarthritis, right hand; M19.042 - Primary osteoarthritis, left hand Category: Medical Qualifiers: Osteoarthritis type: primary Qualified Code(s): M19.041 - Primary osteoarthritis, right hand; M19.042 - Primary osteoarthritis, left hand Plan: X-rays of the hands done on 03/16/22 revealed degenerative arthritic changes of the PIP and DIP joints of all digits, with periapical spurring at the DIP joint of the 2nd and 3rd digits and PIP joint of the 1st digit Continue Tramadol 50 mg TID PRN for pain Patient is advised again to continue with regular hand exercises to help minimize her stiffness and pain (10) Primary osteoarthritis of left hip: Code(s): M16.12 - Unilateral primary osteoarthritis, left hip Category: Medical Plan: Left hip x-rays done back in December 2023 revealed (+) mild degenerative changes of the left hip without fracture or dislocation Can refer her to orthopedics for consideration for cortisone injection if her left hip continues to bother her (11) Memory loss or impairment: Code(s): R41.3 - Other amnesia Category: Medical Plan: Most likely due to cognitive impairment or early dementia related to her age Have recommend referral to neurology, especially if symptoms get worse but patient would like to continue to hold off on neurology referral at this time Her daughter states that she will call for referral if patient's mental status/confusion gets worse but is asking if there is anything she can take to slow down her decline Continue Donepezil 5 mg Q HS; she also takes OTC Prevagen daily (12) Obesity (BMI 30-39.9): Code(s): E66.9 - Obesity, unspecified Category: Medical Plan: Reinforced diet; she should ideally try losing some weight but this may not be practical or realistic in light of her cognitive decline and comorbidities Plan Follow up in 4 months Orders: Orders Complete Blood Count Auto Diff 4 Months D64.9 - Anemia, unspecified Free T4 (Free Thyroxine) 4 Months E03.9 - Hypothyroidism, unspecified UA CC w/rflx Micro + Cult 4 Months R30.0 - Dysuria Hemoglobin A1c 4 Months E11.9 - Type 2 diabetes mellitus without complications Vitamin B12 and Folate 4 Months E53.8 - Deficiency of other specified B group vitamins Comprehensive [place]. Panel Fast 4 Months E78.00 - Pure hypercholesterolemia, unspecified Thyroid Stimulating Hormone 4 Months E03.9 - Hypothyroidism, unspecified Thyroid Peroxidase Antibodies 4 Months R79.89 - Other specified abnormal findings of blood chemistry Lipid Panel 4 Months E78.00 - Pure hypercholesterolemia, unspecified Microalbumin, Random (w Creat) 4 Months E11.9 - Type 2 diabetes mellitus without complications Vitamin D 25-OH Total 4 Months E55.9 - Vitamin D deficiency, unspecified
[2024-09-09 13:30] VITALS: BP 122/70; PULSE 53; O2SAT 98; BMI 32.2
== END 2024-09-09 14:33 | disposition home or self-care (01) ==
LOC: HO.HMCH 13:25
PROVIDERS: PCP Internal Medicine; Visit Provider Internal Medicine
DX: I12.9 Hypertensive chronic kidney disease with stage 1 through stage 4 chronic kidney disease, or unspecified chronic kidney disease (principal); E11.9 Type 2 diabetes mellitus without complications; N18.31 Chronic kidney disease, stage 3a; E78.00 Pure hypercholesterolemia, unspecified; E03.9 Hypothyroidism, unspecified; E55.9 Vitamin D deficiency, unspecified; E53.8 Deficiency of other specified B group vitamins; G47.33 Obstructive sleep apnea (adult) (pediatric); M19.041 Primary osteoarthritis, right hand; M19.042 Primary osteoarthritis, left hand; M16.12 Unilateral primary osteoarthritis, left hip; R41.3 Other amnesia

== ENCOUNTER → 2024-09-09 13:24 | Outpatient (BNVA) | payer MEDICARE, SELFPAY | PROVIDERS: PCP Internal Medicine; Visit Provider Internal Medicine | DX: E78.00 Pure hypercholesterolemia, unspecified (principal); I10 Essential (primary) hypertension; E03.9 Hypothyroidism, unspecified; N18.31 Chronic kidney disease, stage 3a; E55.9 Vitamin D deficiency, unspecified; E53.8 Deficiency of other specified B group vitamins; M19.041 Primary osteoarthritis, right hand; M19.042 Primary osteoarthritis, left hand; M16.12 Unilateral primary osteoarthritis, left hip; R41.3 Other amnesia; E66.9 Obesity, unspecified; G47.33 Obstructive sleep apnea (adult) (pediatric) | CPT/HCPCS: 96127; 99212 ==

== ENCOUNTER 2024-10-12 13:52 | Emergency (ER) | payer MEDICARE, SELFPAY ==
--- NOTE | ~2024-10-12 | XR_ITS ---
CLINICAL HISTORY: fall, pain AP pelvis, Two views of the right hip. COMPARISON: None FINDINGS: Pelvic ring appears intact. Advanced degenerative changes of the partially visualized lower lumbar spine. Visualized portions of the contralateral left hip appear intact. Right hip: Visualized portions of the proximal right femur appear intact. There is loss of right hip joint space. Osteophytes present along the femoral head. IMPRESSION: 1. No radiographic evidence of acute injury to the pelvis and right hip. 2. Moderate right hip joint degenerative changes. 3. Advanced degenerative changes of the partially visualized lower lumbar spine. This document has been electronically signed by: Roger Ramos MD on 10/12/2024 15:55:51
--- NOTE | ~2024-10-12 | CT_ITS ---
CLINICAL HISTORY: Unwitnessed fall, ? Head injury CT cervical spine without contrast. COMPARISON: CT angiogram head and neck dated 05/16/24 at 15:35 EST FINDINGS: Normal vertebral body alignment. Vertebral body heights are maintained. Hemangiomas present within the C6 vertebral body, stable. Skull base and intracranial structures appear normal. The visualized paravertebral soft tissues appear unremarkable. C2-C3: Fusion of the posterior elements on the left. No significant neural foraminal narrowing. C3-C4: Facet joint arthrosis. No significant neural foraminal narrowing. C4-C5: Uncovertebral joint hypertrophy. Facet joint arthrosis. [id number] left neural foraminal narrowing. C5-C6: Uncovertebral joint hypertrophy. Severe left and mild right neural foraminal narrowing. C6-C7: Anterior marginal osteophytes. Uncovertebral joint hypertrophy. Mild right neural foraminal narrowing. IMPRESSION: 1. No evidence of acute injury to the cervical spine. This document has been electronically signed by: Roger Ramos MD on 10/12/2024 16:16:55
--- NOTE | ~2024-10-12 | CT_ITS ---
CLINICAL HISTORY: Unwitnessed fall CT head without contrast. COMPARISON: CT head dated 05/16/24 at 15:23 EST FINDINGS: Mild mucosal thickening present within the right maxillary sinus. The mastoid air cells are clear. No calvarial fracture. No abnormality identified within the visualized orbital soft tissues. No evidence for mass or mass effect. No intracranial hemorrhage or abnormal extra-axial fluid collection. The ventricles are proportional with the degree of moderate global cerebral volume loss without evidence of hydrocephalus. Basilar cisterns are patent. There are periventricular areas of low attenuation compatible with mild white matter small vessel disease. Posterior fossa appears unremarkable. IMPRESSION: 1. No acute intracranial findings. This document has been electronically signed by: Roger Ramos MD on 10/12/2024 16:13:53
--- NOTE | ~2024-10-12 | CT_ITS ---
CLINICAL HISTORY: fall. midline pain, TTP CT lumbar spine without contrast. COMPARISON: None FINDINGS: Mildly displaced fracture of the anterior superior endplate of L1. There is soft tissue edema anteriorly. Remaining vertebral body heights are maintained. Grade 1 anterolisthesis of L4 on L5, degenerative. Left renal exophytic cystic lesion of the superior pole measuring 1.6 cm. Infrarenal abdominal aortic aneurysm measuring up to 5.4 cm. No surrounding inflammatory changes. Cholecystectomy. Bone island present within the right iliac bone. L5-S1: Fusion of the posterior elements. Moderate left neural foraminal narrowing. L4-L5: Fusion of the posterior elements. Mild left neural foraminal narrowing. L3-L4: Mild posterior disc bulge. Facet joint arthrosis. Moderate bilateral neural foraminal narrowing. L2-L3: Mild posterior disc bulge. Facet joint arthrosis. No significant neural foraminal narrowing. L1-L2: Intervertebral disc is normal in height. No significant disc bulge or central canal stenosis. IMPRESSION: 1. Acute mildly displaced fracture of the anterior superior endplate of L1. There is adjacent soft tissue edema. No retropulsion into the canal. 2. Grade 1 anterolisthesis of L4 on L5, degenerative. 3. Infrarenal abdominal aortic aneurysm measuring up to 5.4 cm. No surrounding inflammatory changes. This document has been electronically signed by: Roger Ramos MD on 10/12/2024 16:21:15
--- NOTE | ~2024-10-12 | XR_ITS ---
CLINICAL HISTORY: fall Single view of the chest. COMPARISON: None FINDINGS: Normal heart and mediastinal contours. No consolidation. No pleural effusion or pneumothorax. No acute fracture. Surgical clips in the right upper quadrant. IMPRESSION: 1. No acute findings. No pneumothorax. This document has been electronically signed by: Roger Ramos MD on 10/12/2024 15:56:02
--- NOTE | 2024-10-12 13:59 | ECG_ITS ---
Test Reason : FALL Blood Pressure : */* mmHG Vent. Rate : 52 BPM Atrial Rate : 52 BPM P-R Int : 122 ms QRS Dur : 74 ms QT Int : 450 ms P-R-T Axes : 12 -11 5 degrees QTcB Int : 418 ms Sinus bradycardia Low voltage QRS Borderline ECG When compared with ECG of 16-May-2024 16:25, No significant change was found Referred By: Sofi Park Electronically Signed By: Jerome Johnson
[2024-10-12 14:05] VITALS: BP 143/76; PULSE 56; O2SAT 100
--- NOTE | 2024-10-12 14:12 | ED.HEATRA ---
HPI - Head Injury General Chief complaint: Fall Stated complaint: FALL UNKNOWN DOWNTIME Time Seen by Provider: 10/12/24 13:53 Source: patient and EMS Mode of arrival: EMS Limitations: no limitations and altered mental status History of Present Illness ED Provider: Sofi Park NP HPI Narrative: Patient is an 84-year-old female who presents emergency department via EMS for evaluation after an unwitnessed fall. Due to pain she received fentanyl 25 mcg pre-hospital. She is not able to recall the events precipitating the fall nor the fall itself. She vaguely states at some point during our interaction that there was a fall but does not provide much further detail. Evidently family, her daughter Samla found her on the floor today. She does recall Salma being at the home, but does not tell me much more clear history involving Salma. She is complaining of lower back pain, right hip pain. Endorsed a nursing staff that she was having bilateral shoulder pain however at the time of my evaluation is noticed to be raising both arms up above her head without any difficulty or report of pain. She denies use of anticoagulants or known coagulation disorders. Denies recent ill like symptoms, headache, dizziness, lightheadedness, chest pain, shortness of breath, difficulty breathing, nausea, vomiting, abdominal pain, numbness or tingling of the extremities. Related Data Previous Rx's ?Medication ?Instructions ?Recorded lisinopril 5 mg tablet 5 mg PO DAILY 90 days #90 tabs 11/18/23 triamterene 75 0.5 tab PO QAM 90 days #45 tabs 11/18/23 mg-hydrochlorothiazide 50 mg tablet cholecalciferol (vitamin D3) 50 50 mcg PO DAILY #90 tabs 11/30/23 mcg (2,000 unit) tablet (Vitamin D3) simvastatin 20 mg tablet 20 mg PO BEDTIME 90 days #90 tabs 01/30/24 levothyroxine 112 mcg tablet 112 mcg PO QAM 90 days #90 tabs 05/09/24 mecobalamin (vitamin B12) 1,000 1,000 mcg PO DAILY 90 days #90 tabs 05/10/24 mcg chewable tablet donepezil 5 mg tablet 5 mg PO BEDTIME 90 days #90 tabs 08/22/24 Allergies Allergy/AdvReac Type Severity Reaction Status Date / Time acetaminophen [Percocet] Allergy Unknown Unknown Verified 10/12/24 14:27 oxycodone [Percocet] Allergy Unknown Unknown Verified 10/12/24 14:27 penicillin V Allergy Unknown Unknown Verified 10/12/24 14:27 Review of Systems Review of Systems: Yes all other systems are reviewed and are negative [facility] Past Medical History Attestation statement: The following information was validated with the patient. Source: old records reviewed Medical History Primary osteoarthritis of left hip Chronic kidney disease, stage III (moderate) Vitamin B12 deficiency (non anemic) Memory loss or impairment Obesity (BMI 30-39.9) Obstructive sleep apnea Acquired hypothyroidism Benign essential hypertension Pure hypercholesterolemia Vitamin D deficiency Hypothyroidism Hyperlipidemia Diabetes mellitus Hypertension Surgical History History of biopsy History of tonsillectomy History of laparoscopic cholecystectomy Family History Family History Father Medical history unknown Mother Medical history unknown Other Substance abuse Social History Social History Housing: Apartment Alcohol intake: current Alcohol intake frequency: 0-2 drinks per day Alcohol type: wine Patient Tobacco Use Status: Former Tobacco user e-Cigarette/Vaping Use: Never Used Second Hand Smoke Exposure: Yes Advance Directives: No Advance Directives Information Provided: No Do you have a plan to hurt others: No Plan service: No Current occupational status: retired Cognitive needs: Yes (Cane) Hearing needs: No Vision needs: No Physical Exam Vital Signs: Vital Signs: Last Vital Signs Temp 97.7 F 10/12/24 15:52 Pulse 51 10/12/24 15:52 Resp 16 10/12/24 15:52 BP 124/49 L 10/12/24 15:52 Pulse Ox 95 10/12/24 15:52 O2 Del Method Room Air 10/12/24 15:52 BMI result Body Mass Index 29.1 Appearance: Alert.?Oriented to person, place and time. No acute distress.?Normal affect. Head: Normocephalic Eyes: Pupils equal, round and reactive to light. EOMI. Conjunctiva and sclera normal? No Rai sign noted. No raccoon eyes noted ENT: No septal hematoma, nares patent bilaterally. External auditory canal normal tympanic membrane pearly ayala and intact bilaterally. Dentition normal, no fractured teeth. No lesions or lacerations of oropharynx. Uvula midline. Moist mucous membranes. Neck: Normal inspection.? Neck supple.??No palpable tenderness, step-off, deformities. CVS: Heart sounds normal. Normal heart rate and rhythm.? Pulses normal.?? Respiratory: No respiratory distress.? Lung sounds clear to auscultation bilaterally?? Abdomen: Soft and non-tender. Normoactive bowel sounds. ?? Back: Diffuse lumbar midline tenderness on palpation without palpable step-offs or deformities. Skin: Skin warm and dry.? Normal skin color.? Extremities: No lower extremity edema.? 2+ DP/PT pulse bilaterally. Endorses pain to the right hip with flexion and minimal external rotation. No notable shortening of the extremity. Full range of motion to the bilateral upper arms and left lower extremity. Neuro: Moves all extremities spontaneously. Sensation intact bilaterally. CN II-XII intact. No focal neuro deficits. Course Reevaluation(s) Reevaluation #1: Patient's daughter is at bedside, she reports that she last saw patient on 10/10/2024 at approximately 16:00, is not aware of anyone speaking with patient since then nor seeing her to no how long she may have been on the ground for. Daughter presented to her home today, found her lying on the floor at the end of her bed in the right side-lying position. At first patient had stated that she was going to take a shower, then mentioned that she was just getting up for breakfast. Did not provide any specific details surrounding the fall. Family also states that she had a minor fall approximately 1 week ago after which the granddaughter found her she has been up and ambulatory since then however. They do state that at baseline she can have periods of more confusion versus not. Have not felt that otherwise she has been particularly more confused lately. Time: 15:11 Reevaluation #2: Received call from radiology regarding critical lumbar CT: An acute mildly displaced fracture of the anterior superior endplate of L1 with the adjacent soft tissue edema but no retropulsion, infrarenal abdominal aortic aneurysm measuring up to 5.4 cm with no surrounding inflammatory changes, benign abdominal examination. I will consult with [facility] Trauma Service in addition to vascular service though I suspect that there will be no acute intervention required. Time: 16:34 Reevaluation #3: I received a call from [facility] transfer line, they had spoken with Trauma team and felt that it would be better suited to have neurosurgery consult. I spoke with Indiana Roblero from there neurosurgery service, advises no precautions necessary at this time it is a stable fracture as there was no involvement of the posterior elements. Patient may work with physical therapy, should heal with time on its own. Patient may utilize a TLS or brace for additional support and pain control but is not required. Oral pain control should be adequate. If over time there is persistent pain or increased height loss, she may consider kyphoplasty but this would require follow up with primary care provider and appropriate referrals at that time. No routine follow-up with Neurosurgery or repeat imaging without acute changes as required I spoke with vascular Service, Dr. Dumont, who advises that based on the size of the aneurysm, they would consider surgical repair, ideally for next available OR time sometime this week. Patient to be transferred to ED with the accepting Dr. Dumont. On evaluation serum labs reveal a mild leukocytosis of 12,400 with left shift, no anemia, no thrombocytopenia. No significant electrolyte derangement. Minimally elevated BUN at 19 and creatinine 0.79, no apparent SAÚL. CPK is 18,041 I suspect secondary to prolonged downtime, high sensitive troponin is mildly elevated at 31.7, EKG is without apparent ischemic changes revealing a sinus bradycardia with ventricular rate of 52, QTC of 418, no ST-elevation, no T-wave inversion. Testing for COVID, flu, RSV is negative. Chest x-ray is without acute pathology. XR of the right hip/pelvis reveals degenerative changes to the hip joint without evidence of fracture Time: 17:00 Additional Reevaluation(s): Patient and family have been updated on all findings and plan of care and are amenable to transfer to [facility] emergency department. All questions were answered. Medical Decision Making Medical Decision Making MDM Narrative: Patient is an 84-year-old female with past medical history of osteoarthritis, vitamin B12 deficiency, CKD stage 3, ERYN, hypothyroidism, hypertension, hypercholesterolemia, diabetes, cognitive impairment who presents emergency department for evaluation after an unwitnessed fall found down on the floor by family with unclear downtime. Family is not present at bedside at the time of my evaluation, they are coming to the emergency department, will confirm last time she was known to be well prior to potential fall. No use of anticoagulants or known coagulation disorders. However given age and mechanism of injury, will obtain CT of the head and cervical spine to exclude ICH, SDH, skull fracture, traumatic cervical spine fracture subluxation, given her diffuse midline tenderness of the lumbar spine and endorsement of pain will obtain CT of the lumbar spine to exclude fracture traumatic subluxation, though I do not appreciate any palpable deformities or step-offs. She does have pain with minimal active range of motion to the right hip for which we will obtain x-ray of the hip and pelvis to evaluate for acute fracture and/or dislocation. Given the etiology of the fall is unclear, Will obtain CBC to evaluate for leukocytosis/ anemia, CMP and lipase to evaluate for abnormal electrolytes /abnormal renal function/ abnormal hepatic/biliary function, EKG and troponin to evaluate for ischemia/ACS. Chest x-ray to evaluate for consolidation/ infiltrate/ mass/ pulmonary congestion and Urinalysis. Differential Diagnosis Differential Diagnoses: The differential diagnosis associated with the presentation includes (See narrative above) Admission/Observation Consideration of admission/observation: Escalation of care including admission/observation considered (See narrative above) Lab Data MDM Lab Attestation statement: I reviewed the patient's lab results. 10/12/24 14:45 10/12/24 16:08 Labs: Lab Results 10/12/24 10/12/24 10/12/24 Range/Units 14:45 15:45 16:08 WBC 12.4 H (4.8-10.8) X10*3/uL RBC 4.82 (4.20-5.50) X10*6/uL Hgb 16.0 (12.0-16.0) g/dl Hct 45.5 (37.0-47.0) % MCV 94.4 (80.0-98.0) fL MCH 33.2 H (27.0-33.0) pg MCHC 35.2 H (31.0-35.0) g/dl RDW 13.0 (11.0-16.0) % Plt Count 300 (160-400) X10*3/uL MPV 10.1 (9.4-12.3) fL Immature Gran % (Auto) 0.5 H (0.0-0.4) % Neut % (Auto) 87.7 H (45-73) % Lymph % (Auto) 6.4 L (20-40) % [place] % (Auto) 4.8 (2-11) % Eos % (Auto) 0.2 (0-4) % Baso % (Auto) 0.4 (0-2) % Lymph # (Auto) 0.8 L (1.2-4.9) X10*3/uL [place] # (Auto) 0.6 (0.1-1.2) X10*3/uL Eos # (Auto) 0.0 (0.0-0.4) X10*3/uL Baso # (Auto) 0.1 (0.0-0.2) X10*3/uL Abs Immat Gran (auto) 0.06 H (0.00-0.03) X10*3/uL Absolute Neuts (auto) 10.9 H (2.0-8.3) x10*3/uL Absolute Nucleated RBC 0.000 (0.0-0.012) X10*3/uL Nucleated RBC % (auto) 0.0 (0.0-0.2) /100WBC PT 13.2 H (10.9-12.4) SEC INR 1.1 (0.9-1.1) Sodium 139 (135-145) mmol/L Potassium 4.4 (3.3-5.1) mmol/L Chloride 104 (96-108) mmol/L Carbon Dioxide 18 L (22-29) mmol/L Anion Gap 21 H (12-20) BUN 19 H (9-16) mg/dL Creatinine 0.79 (0.5-1.4) mg/dL Estim Creat Clear Calc 58.1 Estimated GFR > 60 Random Glucose 104 (60-115) mg/dL Calcium 10.4 H D (8.4-10.2) mg/dL Magnesium 2.0 (1.6-2.6) mg/dL Total Bilirubin 1.2 H (0.0-1.0) mg/dL AST 92 H (5-31) U/L ALT 21 (0-31) U/L Alkaline Phosphatase 64 (39-117) U/L Total Creatine Kinase 1841 H (26-140) U/L Troponin I High Sens 31.7 H D (<3.5-17.0) ng/L Total Protein 6.7 (6.5-8.0) g/dL Albumin 3.7 (3.5-5.0) g/dL Urine Color Dark Yellow Urine Appearance Clear Urine pH 6.5 (5.0-9.0) Ur Specific [place] 1.020 (1.005-1.025) Urine Protein Trace (Neg-Trace) mg/dL Urine Glucose (UA) Negative (Negative) mg/dL Urine Ketones 15 (Negative) mg/dL Urine Blood Trace H (Negative) Urine Nitrite Negative (Negative) Ur Leukocyte Esterase Negative (Negative) Urine RBC 6-10 H (0-2) /HPF Urine WBC 0-5 (0-5) /HPF Ur Squamous Epith Cells 0-2 (0-2) /HPF Urine Bacteria None Seen (None Seen) Hyaline Casts 0-2 (0-2) /LPF Influenza Type A (PCR) NEGATIVE (Negative) Influenza Type B (PCR) NEGATIVE (Negative) RSV RNA Qual (PCR) NEGATIVE (Negative) SARS-CoV-2 RNA (RT-PCR) NEGATIVE (Negative) Radiology Impression Discussion of test interpretation with radiology: I have reviewed the radiologist's reading. Radiologist Impression: AP pelvis, Two views of the right hip. COMPARISON: None FINDINGS: Pelvic ring appears intact. Advanced degenerative changes of the partially visualized lower lumbar spine. Visualized portions of the contralateral left hip appear intact. Right hip: Visualized portions of the proximal right femur appear intact. There is loss of right hip joint space. Osteophytes present along the femoral head. IMPRESSION: 1. No radiographic evidence of acute injury to the pelvis and right hip. 2. Moderate right hip joint degenerative changes. 3. Advanced degenerative changes of the partially visualized lower lumbar spine. Single view of the chest. COMPARISON: None FINDINGS: Normal heart and mediastinal contours. No consolidation. No pleural effusion or pneumothorax. No acute fracture. Surgical clips in the right upper quadrant. IMPRESSION: 1. No acute findings. No pneumothorax. CT lumbar spine without contrast. COMPARISON: None FINDINGS: Mildly displaced fracture of the anterior superior endplate of L1. There is soft tissue edema anteriorly. Remaining vertebral body heights are maintained. Grade 1 anterolisthesis of L4 on L5, degenerative. Left renal exophytic cystic lesion of the superior pole measuring 1.6 cm. Infrarenal abdominal aortic aneurysm measuring up to 5.4 cm. No surrounding inflammatory changes. Cholecystectomy. Bone island present within the right iliac bone. L5-S1: Fusion of the posterior elements. Moderate left neural foraminal narrowing. L4-L5: Fusion of the posterior elements. Mild left neural foraminal narrowing. L3-L4: Mild posterior disc bulge. Facet joint arthrosis. Moderate bilateral neural foraminal narrowing. L2-L3: Mild posterior disc bulge. Facet joint arthrosis. No significant neural foraminal narrowing. L1-L2: Intervertebral disc is normal in height. No significant disc bulge or central canal stenosis. IMPRESSION: 1. Acute mildly displaced fracture of the anterior superior endplate of L1. There is adjacent soft tissue edema. No retropulsion into the canal. 2. Grade 1 anterolisthesis of L4 on L5, degenerative. 3. Infrarenal abdominal aortic aneurysm measuring up to 5.4 cm. No surrounding inflammatory changes. CT cervical spine without contrast. COMPARISON: CT angiogram head and neck dated 05/16/24 at 15:35 EST FINDINGS: Normal vertebral body alignment. Vertebral body heights are maintained. Hemangiomas present within the C6 vertebral body, stable. Skull base and intracranial structures appear normal. The visualized paravertebral soft tissues appear unremarkable. C2-C3: Fusion of the posterior elements on the left. No significant neural foraminal narrowing. C3-C4: Facet joint arthrosis. No significant neural foraminal narrowing. C4-C5: Uncovertebral joint hypertrophy. Facet joint arthrosis. [id number] left neural foraminal narrowing. C5-C6: Uncovertebral joint hypertrophy. Severe left and mild right neural foraminal narrowing. C6-C7: Anterior marginal osteophytes. Uncovertebral joint hypertrophy. Mild right neural foraminal narrowing. IMPRESSION: 1. No evidence of acute injury to the cervical spine. CT head without contrast. COMPARISON: CT head dated 05/16/24 at 15:23 EST FINDINGS: Mild mucosal thickening present within the right maxillary sinus. The mastoid air cells are clear. No calvarial fracture. No abnormality identified within the visualized orbital soft tissues. No evidence for mass or mass effect. No intracranial hemorrhage or abnormal extra-axial fluid collection. The ventricles are proportional with the degree of moderate global cerebral volume loss without evidence of hydrocephalus. Basilar cisterns are patent. There are periventricular areas of low attenuation compatible with mild white matter small vessel disease. Posterior fossa appears unremarkable. IMPRESSION: 1. No acute intracranial findings. Independent Historian Clinical information obtained from an independent historian. History obtained from or confirmed by: EMS and Other (Daughter Salma) External Record Review External record reviewed: Outpatient record Chronic Conditions Patient?s care impacted by: Other (See narrative above) Discharge Plan Discharge Clinical Impression: Rhabdomyolysis, Aneurysm of infrarenal abdominal aorta, Unwitnessed fall, Closed L1 vertebral fracture Patient Disposition: [facility] Transfer Details: [facility] Prescriptions: No Action lisinopril 5 mg tablet 5 mg PO DAILY 90 Days Qty: 90 3RF triamterene-hydrochlorothiazid 75-50 mg tablet 0.5 tab PO QAM 90 Days Qty: 45 3RF cholecalciferol (vitamin D3) [Vitamin D3] 50 mcg (2,000 unit) tablet 50 mcg PO DAILY Qty: 90 3RF simvastatin 20 mg tablet 20 mg PO BEDTIME 90 Days Qty: 90 3RF donepezil 5 mg tablet 5 mg PO BEDTIME 90 Days Qty: 90 1RF levothyroxine 112 mcg tablet 112 mcg PO QAM 90 Days Qty: 90 1RF mecobalamin (vitamin B12) 1,000 mcg tablet,chewable 1,000 mcg PO DAILY 90 Days Qty: 90 3RF Print Language: Maori
[2024-10-12 14:22] VITALS: BP 116/61; PULSE 58; RESP 18; TEMP 36.6; O2SAT 94; BMI 29.1
[2024-10-12 14:52] LABS: MANUAL DIFF FLAG NO
[2024-10-12 14:55] LABS: Basophils Absolute Auto 0.1 X10*3/uL (0.0-0.2); Basophils Percent Auto 0.4 % (0-2); Eosinophils Percent Auto 0.2 % (0-4); Hematocrit 45.5 % (37.0-47.0); Imm Gran Abs Auto 0.06 X10*3/uL (0.00-0.03); Imm Gran Pct Auto 0.5 % (0.0-0.4); Lymphocytes Absolute Auto 0.8 X10*3/uL (1.2-4.9); Lymphocytes Percent Auto 6.4 % (20-40); Mean Corpuscular HGB Conc 35.2 g/dl (31.0-35.0); Mean Corpuscular Hemoglobin 33.2 pg (27.0-33.0); Mean Corpuscular Volume 94.4 fL (80.0-98.0); Mean Platelet Volume 10.1 fL (9.4-12.3); Monocytes Absolute Auto 0.6 X10*3/uL (0.1-1.2); Monocytes Percent Auto 4.8 % (2-11); Neutrophils Absolute Auto 10.9 x10*3/uL (2.0-8.3); Neutrophils Percent Auto 87.7 % (45-73); Platelet Count 300 X10*3/uL (160-400); Red Blood Count 4.82 X10*6/uL (4.20-5.50); White Blood Count 12.4 X10*3/uL (4.8-10.8)
[2024-10-12 15:02] LABS: INTERNATIONAL NORM RATIO 1.1 (0.9-1.1); Prothrombin Time 13.2 SEC (10.9-12.4)
[2024-10-12 15:29] LABS: Influenza A PCR NEGATIVE (Negative); Influenza B PCR NEGATIVE (Negative); Resp Syncy Virus RNA Qual PCR NEGATIVE (Negative); SARS COV2 PCR INHOUSE NEGATIVE (Negative)
[2024-10-12 15:52] VITALS: BP 124/49; PULSE 51; RESP 16; TEMP 36.5; O2SAT 95
--- NOTE | 2024-10-12 15:59 | PC.NURSE ---
coming from home, per daughter patient was found on floor this morning. daughter stating that the furniture was overturned, the TV was knocked over and the patient was on the floor. last time family had seen the patient was sunday. reporting patient is usually confused however patient appears more altered at this time than usual. patient endorses right hip pain and lower back pain with some mild shoulder pain. straight cath obtained with 50mL of tea colored foul smelling urine. patient was incontinent of urine upon arrival, belongings (clothes) placed in bag. IV established, labs obtained and sent. pending ct/xrays at this time. remains collared by EMS w/ call polo in reach
[2024-10-12 16:13] LABS: Appearance Urine Clear; Color Urine Dark Yellow; Glucose Urine UA Negative (Negative); Leukocyte Esterase Urine Negative (Negative); Nitrite Urine Negative (Negative); PH 6.5 (5.0-9.0); UMIC TRIGGER UACC YES; Urine Blood Trace (Negative); Urine Ketones 15 mg/dL (Negative); Urine Protein Trace mg/dL (Neg-Trace)
--- NOTE | 2024-10-12 16:15 | MHC.EDTECH ---
This pct assumed care of Patient at 1500 ,vitals taken ,blood drawn and sent to lab ,Pt family at bedside ,Call polo within Pt reach .
[2024-10-12 16:18] LABS: Bacteria Urine None Seen (None Seen); Hyaline Casts Urine 0-2 /LPF (0-2); Squamous Epithelial Cell Urine 0-2 /HPF (0-2); WBC Urine 0-5 /HPF (0-5)
[2024-10-12 16:34] LABS: Alanine Aminotransferase 21 U/L (0-31); Albumin Level 3.7 g/dL (3.5-5.0); Anion Gap 21 (12-20); Aspartate Amino Transferase 92 U/L (5-31); Bilirubin Total 1.2 mg/dL (0.0-1.0); Blood Urea Nitrogen 19 mg/dL (9-16); Calcium 10.4 mg/dL (8.4-10.2); Carbon Dioxide 18 mmol/L (22-29); Chloride 104 mmol/L (96-108); Creatinine Clr Calc Pharmacy 58.1; Estimated Glomerular Filt Rate > 60; Glucose Random 104 mg/dL (60-115); Potassium 4.4 mmol/L (3.3-5.1); Sodium 139 mmol/L (135-145); Total Protein 6.7 g/dL (6.5-8.0)
[2024-10-12 16:44] LABS: Alkaline Phosphatase 64 U/L (39-117)
[2024-10-12 16:45] LABS: Troponin-I High Sensitivity 31.7 ng/L (<3.5-17.0)
[2024-10-12] MEDS: 0.9 % Sodium Chloride 1,000 ML 999 ML IV (17:40)
[2024-10-12] MEDS: ondansetron HCL 4 MG/2 ML VIAL IVPUSH (17:40)
[2024-10-12] MEDS: Morphine Sulfate 2 MG/ML CARTRIDGE IVPUSH (17:41)
[2024-10-12 17:46] VITALS: BP 114/44; PULSE 57; RESP 14; O2SAT 96
--- NOTE | 2024-10-12 18:06 | PC.NURSE ---
Tried to call report to [facility] ED. Left on hold for greater than 10 minutes
[2024-10-12 18:30] VITALS: BP 114/44; PULSE 57; RESP 14; TEMP 36.9; O2SAT 96
== END 2024-10-12 18:32 | disposition short-term general hospital (02) ==
PROVIDERS: Nurse Practitioner Family; Emergency Provider Emergency Medicine; PCP Internal Medicine
DX: M62.82 Rhabdomyolysis (principal); I71.43 Infrarenal abdominal aortic aneurysm, without rupture; S32.019A Unspecified fracture of first lumbar vertebra, initial encounter for closed fracture; W19.XXXA Unspecified fall, initial encounter; Y93.9 Activity, unspecified; Y92.9 Unspecified place or not applicable; Y99.9 Unspecified external cause status; E03.9 Hypothyroidism, unspecified; I12.9 Hypertensive chronic kidney disease with stage 1 through stage 4 chronic kidney disease, or unspecified chronic kidney disease; E11.22 Type 2 diabetes mellitus with diabetic chronic kidney disease; N18.30 Chronic kidney disease, stage 3 unspecified; E53.8 Deficiency of other specified B group vitamins; Z03.818 Encounter for observation for suspected exposure to other biological agents ruled out
CPT/HCPCS: 0241U; 70450; 71045; 72125; 72131; 73502; 80053; 81001; 81003; 82550; 83735; 84484; 85025; 85610; 93005; 96374; 96375; 99285; J2270; J2405

== ENCOUNTER → 2024-10-12 13:59 | Outpatient (BNV) | payer MEDICARE, SELFPAY | PROVIDERS: Emergency Provider Emergency Medicine; PCP Internal Medicine; Visit Provider Internal Medicine Cardiovascular Disease | DX: R00.1 Bradycardia, unspecified (principal); R94.31 Abnormal electrocardiogram [ECG] [EKG] | CPT/HCPCS: 93010 ==

== ENCOUNTER → 2024-10-12 14:08 | Outpatient (BNV) | payer MEDICARE, SELFPAY | PROVIDERS: Emergency Provider Emergency Medicine; PCP Internal Medicine; Visit Provider Radiology Diagnostic Radiology | DX: S09.90XA Unspecified injury of head, initial encounter (principal); M43.16 Spondylolisthesis, lumbar region; I71.43 Infrarenal abdominal aortic aneurysm, without rupture; M16.11 Unilateral primary osteoarthritis, right hip; M51.360 Other intervertebral disc degeneration, lumbar region with discogenic back pain only; W19.XXXA Unspecified fall, initial encounter | CPT/HCPCS: 70450; 71045; 72125; 72131; 73502 ==

== ENCOUNTER 2024-11-28 15:35 | Outpatient (AMB) | payer MEDICARE, SELFPAY ==
[2024-11-28 15:34] VITALS: BP 140/80; PULSE 66; O2SAT 99; BMI 29.9
--- NOTE | 2024-11-28 15:34 | AM.OFFWIN_ITS ---
Intake Vital Signs 11/28/24 15:34 Height 5 ft 7 in Weight 191 lb BMI 29.9 BP 140/80 H Blood Pressure Location Rt brachial Position Sitting Pulse 66 Pulse Source Pulse Oximeter Pulse Oximetry (%) 99 Oxygen Delivery Method Room Air Intake Visit Reasons: EP Swollen feet Intake Note: Patient here for bilat feet swelling that has been present for about 1 week. Patient Tobacco Use Status: Former Tobacco user Allergies acetaminophen (Percocet) Allergy (Unknown, Verified 11/28/24 15:42) Unknown oxycodone (Percocet) Allergy (Unknown, Verified 11/28/24 15:42) Unknown penicillin V Allergy (Unknown, Verified 11/28/24 15:42) Unknown Do you need a note to return to daycare/school/sports/work: No HPI HPI Comments History of Present Illness Details This is an 84-year-old female with a past medical history of chronic kidney disease, hypothyroidism, hypertension, diet-controlled diabetes and hyperlipidemia presenting for evaluation of swelling in her feet that has been ongoing for the past 1 week. Patient was hospitalized on October 12, discharged to rehab and was discharged home on November 27, 2024. Patient states there have been no changes of her medications. The patient's daughter, who is present states that her levothyroxine was changed and perhaps November to a lower dose. Patient denies having any chest pain, cough, shortness for breath or dyspnea on exertion. [facility] Medical History Primary osteoarthritis of left hip Chronic kidney disease, stage III (moderate) Vitamin B12 deficiency (non anemic) Memory loss or impairment Obesity (BMI 30-39.9) Obstructive sleep apnea Acquired hypothyroidism Benign essential hypertension Pure hypercholesterolemia Vitamin D deficiency Hypothyroidism Hyperlipidemia Diabetes mellitus Hypertension Surgical History History of biopsy History of tonsillectomy History of laparoscopic cholecystectomy Family History Father Medical history unknown Mother Medical history unknown Other Substance abuse Social History Housing: Apartment Alcohol intake: current Alcohol intake frequency: 0-2 drinks per day Alcohol type: wine Patient Tobacco Use Status: Former Tobacco user e-Cigarette/Vaping Use: Never Used Second Hand Smoke Exposure: Yes service: No Current occupational status: retired Cognitive needs: Yes (Cane) Hearing needs: No Vision needs: No Review of Systems Const All systems reviewed & are unremarkable except as noted in HPI and below Reports no additional complaints Eyes Reports no additional complaints ENT Reports no additional complaints Card Reports no additional complaints, Denies chest pain, Denies chest pain at rest, Denies rapid heart rate, Reports pedal edema, Denies claudication, Denies leg ulcers, Reports leg edema, Denies lightheadedness, Denies dyspnea, Denies dyspnea on exertion and Denies orthopnea Resp Denies cough, Denies dyspnea and Denies dyspnea on exertion GI Reports no additional complaints Reports no additional complaints Musc Reports no additional complaints Skin/Breast Reports system reviewed and no additional complaints, except as documented and Reports skin swelling Neuro Reports no additional complaints Psych Reports no additional complaints Endo Reports no additional complaints Aller/Immun Reports no additional complaints Physical Exam Vital Signs: Last Vital Signs Pulse 66 11/28/24 15:34 BP 140/80 H 11/28/24 15:34 Pulse Ox 99 11/28/24 15:34 Oxygen Delivery Method Room Air 11/28/24 15:34 BMI result Body Mass Index 29.9 Const General: cooperative, healthy appearing, comfortable, no acute distress, well developed, alert, awake and Physically active Nutritional Appearance: overweight Orientation/consciousness: patient oriented x3 Limitations: no limitations Resp Effort & Inspection: normal respiratory effort, able to speak in complete sentences, no audible wheezes, no cough, no nasal flaring and not tachypneic Auscultation: clear to auscultation bilaterally, no crackles, no rales, no rhonchi and no wheezes Cardio Rate: regular rate Rhythm: regular rhythm Skin Other: There is mild erythema of the distal lower extremities bilaterally coupled with pedal and distal lower extremity pitting edema. There is no warmth to touch and patient is ambulating with a walker. Neuro General: patient oriented x3 Psych Appearance: grossly normal Mental Status: mental status grossly normal Insight: Good insight present (Psych) Judgement: Good judgement present (Psych) Assessment & Plan Assessment & Plan (1) Bilateral lower extremity edema: Comment: Patient is seen and evaluated with her daughter present. A review of her thyroid functions reveals hyperthyroidism from December until April 2024 and routine blood work from August 2024 reveals hypothyroidism with a TSH of 21.90. Patient's symptoms may be consistent with a myxedema associated with hypothyroidism or CHF. Patient is not tachypneic, hypoxic, and has no other symptoms that may be consistent with congestive heart failure. Routine laboratories including chemistries, CBC and TSH will be ordered and the patient will follow up with her primary care provider on Sunday. Code(s): R60.0 - Localized edema Plan: Laboratories are ordered and will be drawn on SundayNovember 29, patient will obtain compression stockings and wear daily, removing them at night. Furthermore, patient is advised to take one and a half tablets of Lasix on Sunday, Sunday and Sunday for a total of 30 mg daily. The patient and her daughter will call primary care physician's office on Sunday for a further discussion of her thyroid functions. Orders: Orders Complete Blood Count Auto Diff 11/29/24 R60.0 - Localized edema Comprehensive Met. Panel 11/29/24 R60.0 - Localized edema TSH reflex Free T4 11/29/24 R60.0 - Localized edema Medications: Discontinued levothyroxine Discontinued Reason: No Longer Medically Relevant 112 mcg PO QAM 90 days 90 tabs 1RF Coding Level of Care Code Est Pt Level 3 (57760) Diagnoses Bilateral lower extremity edema R60.0 Time Spent (min) 30
--- OUTSIDE RECORDS SUMMARY | 2024-11-28 15:37 | XMS_ITS ---
Author Organization [facility] Care Team Providers Care Per Diem Interpreter Name Role Phone Sailaja Bullock Unavailable Unavailable Clarita Ballesteros Unavailable Unavailable Juan Krishnan Unavailable Unavailable Colton Ureña Unavailable Unavailable Allergies and adverse reactions Code CodeSystem Substance Reaction Severity StartDate Concern Status 7984 RXNORM Penicillin Moderate 10/22/2024 active 2231 RXNORM Keflex Moderate 10/22/2024 active Care Team Name Role Address Phone Organization Dates Colton Ureña PCP [address] [address], [facility] (Office): : [facility] 10/22/2024 - 11/27/2024 Sailaja Bullock [address] [facility] [address], [place], [address], [facility] (Office): : [facility] 10/22/2024 - 11/27/2024 Clarita Ballesteros [address] [facility] [address] [address], [facility] (Office): : [facility] 10/22/2024 - 11/27/2024 Juan Krishnan [address] [place] [address], [place], [address], [place] (Office): : Jerrell Gurrola [facility] 10/22/2024 - 11/27/2024 Goals Section Goals Description Status Target Date I will be free of infection, pain or bleeding in the oral cavity by/through review date. Active 01/29/2025 I plan to discharge to: Spec jhony- To community alone, Pending outcome of therapy sessions, clinical medical stability progress reviewed weekly. Active 01/29/2025 I will attend/participate in activities of choice by next review date. Active 01/29/2025 I will be at reduced risk fo r complications of self care performance deficit and impaired mobility daily through the review date. Active 01/29/2025 I will be at reduced risk fo r new or worsened impaired skin integrity daily through the review date. Active 01/29/2025 I will be free from infection through the next r eview date. Active 01/29/2025 I will be free from s/sx of complications of cardiac problems through the review date. Active 01/29/2025 I will be free from s/sx of dehydration through next review date. Active 01/29/2025 I will be free of fall relat ed injury through the next review date. Active 01/29/2025 I will display my optimal br eathing pattern daily through the review date. Active 01/29/2025 I will effectively cope with my feelings through the review date. Active 01/29/2025 I will have no complications related to diabetes through the review date. Active 01/29/2025 I will have no complications related to hyperthyroidism through the review date. Active 01/29/2025 I will improve current level of cognitive function by the review date. Active 01/29/2025 I will maintain adequate nut ritional status as evidenced by maintaining weight within +/-5% of CBW, no s/sx of malnutrition, and consuming at least 76% of at least 2 meals daily through review date. Active 01/29/2025 I will maintain or improve m y independence and mobility through review date. Active 01/29/2025 I will not experience compli cations of oral/dental health problems through the review date. Active 01/29/2025 I will not have skin breakdo wn due to incontinence through the review date. Active 01/29/2025 I will remain free of compli cations related to altered hematological status through the review date. Active 01/30/20 25 I will return to prior level of function after therapy services and healing and rehabilitation by review date. Active 025 I will verbalize adequate re lief of pain or ability to cope with incompletely relieved pain through the review date. Active My risk for everett will be mitigated through revi ew date. Active 01/29/2025 My skin integrity will be im proved or maintained by next review date. Active 01/29/2025 The resident will have intac t skin, free of redness, blisters, or discoloration through review date. Active 01/29/2025 The resident's advance direc tives are in effect and their wishes will be carried out through the next review. Active Functional Status Code Name Recorded Time Value Entered By Eating 11/27/2024 Independent spolastri Lying to sitting on side of bed 11/27/2024 Substantial/maximal assistance spolastri Oral hygiene 11/27/2024 Substantial/maximal assistan ce spolastri Personal hygiene 11/27/2024 Substantial/maximal assi stance spolastri Shower/bathe self 11/27/2024 Substantial/maximal ass istance spolastri Sit to lying 11/27/2024 Substantial/maximal assistan ce spolastri Toilet transfer 11/27/2024 Substantial/maximal aj tance spolastri Toileting hygiene 11/27/2024 Substantial/maximal ass istance spolastri Immunizations Immunization Status Vaccine Details Vaccine Code CodeSystem Date Notes (Pneumococcal) PPSV23- Polysaccharide 23-valent Vaccine completed pneumococcal polysaccharide vaccine, 23 valent 33 CVX created date: 10/28/2024 administere d date: 06/02/2015 (Influenza) FLUAD - Adjuvanted - High Dose - 65+ completed Influenza, adjuvanted, inactivated, trivalent, injectable, preservative free 168 CVX created date: 10/28/2024 administere d date: 05/09/2024 Medications Section Medication Name Status Code CodeSystem Dose Route Frequency Admin Type Sig Text Start Date End Date Aspirin Oral Capsule 81 MG active 501872 RXNORM 81 mg Oral one time a day Routine Give 81 mg by mouth one time a day for monito ring 2024 - Cholecalcifer ol Oral Tablet active 2000 unit Oral one time a day Routine Give 2000 unit by mouth one time a day for supple ment 2024 - Lisinopril Oral Tablet 5 MG aborted 474370 RXNORM 5 mg Oral one time a day Routine Give 5 mg by mouth one time a day for hypert ension 10/29 Cyanocobalami n Oral Tablet active 1000 mcg Oral one time a day Routine Give 1000 mcg by mouth one time a day for supple ment 2024 - oxyCODONE HCl Oral Tablet 5 MG complete d 419100 1 RXNORM 2.5 mg Oral as needed PRN Give 2.5 mg by mouth every 6 hours as needed for pain manage ment until 2024 23:59 10/30 Acetaminophen Oral Tablet 325 MG active 229307 RXNORM 2 tablet Oral as needed PRN Give 2 tablet by mouth every 6 hours as needed for Pain Total Dose 650mg * *DO NOT EXCEED 3 grams in 24 hours* * AND Give 2 tablet by mouth every 6 hours as needed for Temper ature greate r than 101.F Total Dose 650mg * *DO NOT EXCEED 3 grams in 24 hours* * 2024 - 533709 RXNORM 2 tablet Oral as needed PRN Give 2 tablet by mouth every 6 hours as needed for Pain Total Dose 650mg * *DO NOT EXCEED 3 grams in 24 hours* * AND Give 2 tablet by mouth every 6 hours as needed for Temper ature greate r than 101.F Total Dose 650mg * *DO NOT EXCEED 3 grams in 24 hours* * 2024 - Tubersol Solution 5 UNIT/0.1ML complete d 497160 RXNORM 0.1 ml Intrade rmal one time only One Time Only Inject 0.1 ml intrad ermall y one time only for admiss ion for 3 Days record indura tion in millim eters; Read PPD in 48 hours, notify physic regina if positi ve. 11/05 Bisacodyl Rectal Suppository 10 MG active 837893 RXNORM 1 suppos itory Rectal as needed PRN Insert 1 suppos itory rectal ly every 24 hours as needed for Consti pation Give 1 Suppos itory (10mg) via rectum if no result s from Milk of Magnes ia after 24 hours. 2024 - Fleet Enema Rectal Enema 7-19 GM/118ML active 064095 RXNORM 1 applic ator Rectal as needed PRN Insert 1 applic ator rectal ly as needed for Consti pation Give 1 applic ator full (118 ml)if no result s from Bisaco dyl suppos itory. 2024 - Milk of Magnesia Oral Suspension 400 MG/5ML active 912133 RXNORM 30 ml Oral as needed PRN Give 30 ml by mouth every 24 hours as needed for Consti pation Give 30ml by mouth if no bowel moveme nt in 3 days (9 Shifts ). 2024 - Atorvastatin Calcium Oral Tablet 20 MG active 836346 RXNORM 20 mg Oral in the evening Routine Give 20 mg by mouth in the evenin g for choles terol 2024 - Levothyroxine Sodium Oral Tablet active 0.112 mg Oral one time a day Routine Give 0.112 mg by mouth one time a day for thyroi d 2024 - oxyCODONE HCl Oral Tablet 5 MG aborted 733950 1 RXNORM 5 mg Oral two times a day Routine Give 5 mg by mouth two times a day for severe pain 10/29 oxyCODONE HCl Oral Tablet 5 MG aborted 366147 1 RXNORM 2.5 mg Oral two times a day Routine Give 2.5 mg by mouth two times a day for severe pain 11/03 oxyCODONE HCl Oral Tablet 5 MG aborted 022572 1 RXNORM 0.5 tablet Oral three times a day Routine Give 0.5 tablet by mouth three times a day for pain manage ment total dose equals 2.5 mg 11/07 oxyCODONE HCl Oral Tablet 5 MG active 815770 1 RXNORM 0.5 tablet Oral as needed PRN Give 0.5 tablet by mouth every 8 hours as needed for modera te (4-6) - severe (7-10) PAIN total dose equals 2.5 mg 2024 - Sennosides Tablet 8.6 MG active 082633 RXNORM 1 tablet Oral at bedtime Routine Give 1 tablet by mouth at bedtim e for consti pation 2024 - Docusate Sodium Capsule 100 MG aborted 983573 5 RXNORM 2 capsul e Oral two times a day Routine Give 2 capsul e by mouth two times a day for consti pation 11/07 Docusate Sodium Capsule 100 MG active 250654 5 RXNORM 2 capsul e Oral two times a day Routine Give 2 capsul e by mouth two times a day for consti pation 2024 - oxyCODONE HCl Oral Tablet 5 MG active 123884 1 RXNORM 0.5 tablet Oral three times a day Routine Give 0.5 tablet by mouth three times a day for pain manage ment total dose equals 2.5 mg 2024 - Remeron Oral Tablet active 7.5 mg Oral at bedtime Routine Give 7.5 mg by mouth at bedtim e for Anxiet y 2024 - Furosemide Tablet 20 MG active 471152 RXNORM 20 mg Oral one time a day Routine Give 20 mg by mouth one time a day for edema Monito r for Side Effect s Diuret ics for signs and sympto ms of dehydr ation, electr olytes , acute kidney injury , monito r for edema, conges tion, weight change s. 2024 - Mental Status Section Date Assessment Total Score Description 10/28/2024 BIMS 09 moderate cognit ruth impairment CAM 0 No delirium ind icated PHQ-9 00 Problems Problem # Description Date of onset Resolved Date Code CodeSystem Concern Status 1 HYPERLIPIDEMIA, UNSPECIFIED 10/23/[address] active 2 PRESENCE OF OTHER VASCULAR IMPLANTS AND GRAFTS 10/23/[address] active 3 ALTERED MENTAL STATUS, UNSPECIFIED 10/22/[address] active 4 BRADYCARDIA, UNSPECIFIED 10/22/[address] active 5 CHRONIC KIDNEY DISEASE, STAGE 3 UNSPECIFIED 10/22/[address] active 6 ESSENTIAL (PRIMARY) HYPERTENSION 10/22/[address] active 7 HISTORY OF FALLING 10/22/[address] active 8 HYPOTHYROIDISM, UNSPECIFIED 10/22/[address] active 9 INFRARENAL ABDOMINAL AORTIC ANEURYSM, WITHOUT RUPTURE 10/22/[address] active 10 MUSCLE WASTING AND ATROPHY, NOT ELSEWHERE CLASSIFIED, MULTIPLE SITES 10/22/[address] active 11 OBSTRUCTIVE SLEEP APNEA (ADULT) (PEDIATRIC) 10/22/[address] active 12 RHABDOMYOLYSIS 10/22/[address] ac tive 13 TYPE 2 DIABETES MELLITUS WITHOUT COMPLICATIONS 10/22/[address] active 14 UNSPECIFIED DEMENTIA, UNSPECIFIED SEVERITY, WITHOUT BEHAVIORAL DISTURBANCE, PSYCHOTIC DISTURBANCE, MOOD DISTURBANCE, AND ANXIETY 10/22/[address] active 15 UNSPECIFIED FRACTURE OF FIRST LUMBAR VERTEBRA, SUBSEQUENT ENCOUNTER FOR FRACTURE WITH ROUTINE HEALING 10/22/[address] active 16 UNSPECIFIED PROTEIN-CALORIE MALNUTRITION 10/22/[address] active 17 VITAMIN D DEFICIENCY, UNSPECIFIED 10/22/[address] active Reason for Referral No Reasons for Referral Entered Social History Social History Observation Description Start Date End Date Code Code System Current Smoking Status Tobacco smoking consumption unknown 203261923 SNOMED CT Sex Assigned At Female 1940 67113-2 [facility] Gender Identity Vital Signs Code Code System Vitals Name Values and Units Timing Information 22608-4 [facility] Pain Level Value=0.0 11/27/2024 9279-1 [facility] Respiratory Rate Value=18.0 Units=/m in 11/27/2024 8462-4 [facility] Blood Pressure-Diastolic Value=90 Un its=mmHg 11/27/2024 8480-6 [facility] Blood Pressure-Systolic Gymsl=787 Un its=mmHg 11/27/2024 8310[facility]5 [facility] Body Temperature Value=97.9 Units=?? F 11/27/2024 8867-4 [facility] Heart rate Value=69.0 Units=/min 05/2025 17424-6 [facility] O2 % BldC Oximetry Value=93.0 Units= % 11/27/2024 42398-0 [facility] Weight Neczf=958.0 Units=Lbs 02/2025 2339-0 [facility] Blood Sugar Value=92.0 Units=mg/dL 11/09/2024 8302-2 [facility] Height Value=65.0 Units=Inches 10/23/2024
== END 2024-11-28 16:24 | disposition home or self-care (01) ==
PROVIDERS: PCP Internal Medicine; Visit Provider Physician Assistant
DX: R60.0 Localized edema (principal)

== ENCOUNTER 2024-11-29 11:32 | Outpatient (REF) | payer MEDICARE, SELFPAY ==
[2024-11-29 13:42] LABS: MANUAL DIFF FLAG NO
[2024-11-29 13:45] LABS: Basophils Absolute Auto 0.1 X10*3/uL (0.0-0.2); Basophils Percent Auto 1.1 % (0-2); Eosinophils Absolute Auto 0.2 X10*3/uL (0.0-0.4); Eosinophils Percent Auto 2.1 % (0-4); Hemoglobin 12.6 g/dl (12.0-16.0); Imm Gran Abs Auto 0.03 X10*3/uL (0.00-0.03); Imm Gran Pct Auto 0.4 % (0.0-0.4); Lymphocytes Absolute Auto 1.9 X10*3/uL (1.2-4.9); Lymphocytes Percent Auto 24.8 % (20-40); Mean Corpuscular HGB Conc 33.2 g/dl (31.0-35.0); Mean Corpuscular Hemoglobin 32.1 pg (27.0-33.0); Mean Corpuscular Volume 96.7 fL (80.0-98.0); Mean Platelet Volume 10.1 fL (9.4-12.3); Monocytes Absolute Auto 0.5 X10*3/uL (0.1-1.2); Monocytes Percent Auto 6.6 % (2-11); Neutrophils Absolute Auto 4.9 x10*3/uL (2.0-8.3); Platelet Count 318 X10*3/uL (160-400); Red Blood Count 3.93 X10*6/uL (4.20-5.50); Red Cell Distribution Width 13.3 % (11.0-16.0); White Blood Count 7.5 X10*3/uL (4.8-10.8)
[2024-11-29 14:03] LABS: Alanine Aminotransferase 8 U/L (0-31); Albumin Level 4.3 g/dL (3.5-5.0); Alkaline Phosphatase 94 U/L (39-117); Anion Gap 16 (12-20); Aspartate Amino Transferase 25 U/L (5-31); Bilirubin Total 0.7 mg/dL (0.0-1.0); Blood Urea Nitrogen 8 mg/dL (9-16); Carbon Dioxide 32 mmol/L (22-29); Chloride 101 mmol/L (96-108); Estimated Glomerular Filt Rate 54; Glucose Random 101 mg/dL (60-115); Potassium 3.3 mmol/L (3.3-5.1); Sodium 146 mmol/L (135-145); Total Protein 6.8 g/dL (6.5-8.0)
[2024-11-29 14:21] LABS: TSH reflex Free T4 10.91 uIU/mL (0.32-4.0)
[2024-11-29 15:01] LABS: Free T4 (Free Thyroxine) 1.25 ng/dL (0.71-1.85)
== END 2024-11-29 11:33 | disposition home or self-care (01) ==
LOC: HO.HMGCLDS 11:32
PROVIDERS: PCP Internal Medicine; Visit Provider Physician Assistant
DX: R60.0 Localized edema (principal)
CPT/HCPCS: 36415; 80053; 84439; 84443; 85025

== ENCOUNTER 2024-12-12 13:31 | Outpatient (REF) | payer MEDICARE, SELFPAY ==
[2024-12-15 13:13] LABS: TS Negative Control Passed; TS Panel A 0; TS Panel B 0; TS Positive Control Passed; TSpotTB Negative (Negative)
== END 2024-12-12 13:32 | disposition home or self-care (01) ==
LOC: HO.LAB 13:31
PROVIDERS: PCP Internal Medicine; Visit Provider Nurse Practitioner Family
DX: R41.3 Other amnesia (principal); E03.9 Hypothyroidism, unspecified; S32.018D Other fracture of first lumbar vertebra, subsequent encounter for fracture with routine healing; W19.XXXD Unspecified fall, subsequent encounter; I10 Essential (primary) hypertension; Z86.79 Personal history of other diseases of the circulatory system; Z98.890 Other specified postprocedural states; Z11.1 Encounter for screening for respiratory tuberculosis
CPT/HCPCS: 36415; 86481; 96127; 99212

== ENCOUNTER 2024-12-12 13:31 | Outpatient (AMB) | payer MEDICARE, SELFPAY ==
--- OUTSIDE RECORDS SUMMARY | 2024-12-11 23:59 | XMS_ITS | Continuity of Care Document ---
Author Organization [facility] Address [address] [place] [address]- Care Team Providers Care Plumbing Assembler Installer Name Role Phone Lenin [place], Hector Garduno Primary Care Physician [phone] Encounter [facility] Date(s): 11/11/24 - 12/11/24 [facility] [address] [place] [address]- Encounter Type: Triage Allergies, Adverse Reactions, Alerts Substance Criticality Severity Reaction Reaction Severity Status codeine Anxiety disorder Act ruth penicillins Rash Active Keflex Active Medications aspirin 81 mg oral delayed release tablet 81 mg, By Mouth, Daily, Refills 0, Maintenance, 10/22/24 9:14:00 AM EDT, Partial fill upon patient request if the prescription is for a schedule II opioid drug. Start Date: 10/22/24 Status: Ordered Repeat number: 1 atorvastatin 20 mg oral tablet 1 tablet = 20 mg, By Mouth, Daily, # 30 tablet, 0 Refills, Maintenance, 10/22/24 9:14:00 AM EDT, Tablet, Partial fill upon patient request if the prescription is for a schedule II opioid drug. Start Date: 10/22/24 Status: Ordered Quantity: 30.0 Unit: tablet Repeat number: 1 levothyroxine 0.112 mg oral tablet 1 tablet = 112 mcg, By Mouth, Daily in AM Start Date: 10/13/24 Status: Ordered Repeat number: 1 lisinopril 5 mg oral tablet 5 mg, 1, tablet, By Mouth, Daily Start Date: 10/13/24 Status: Ordered Repeat number: 1 oxyCODONE 5 mg oral capsule 1 capsule = 5 mg, By Mouth, Every 6 hours, 0 Refills, Maintenance, 11/11/24 9:55:00 AM EDT, Partial fill upon patient request if the prescription is for a schedule II opioid drug. Start Date: 11/11/24 Status: Ordered Repeat number: 1 Vitamin B12 1000 mcg oral tablet 1 tablet = 1,000 mcg, By Mouth, Daily, 0 Refills, Maintenance, 10/13/24 8:06:00 AM EDT, Tablet, Partial fill upon patient request if the prescription is for a schedule II opioid drug. Start Date: 10/13/24 Status: Ordered Repeat number: 1 Vitamin D3 2000 intl units oral tablet 1 tablet = 50 mcg, By Mouth, Daily Start Date: 10/13/24 Status: Ordered Repeat number: 1 Problem List Condition Confirmation Course Effective Dates Status Health St atus Informant L1 vertebral fracture Confirmed Active Obese class I Confirmed Active Social History Social History Type Response Smoking Status Former smoker, quit more than 30 days ago entered on: 11/11/24 Sex Sex Representation Female (finding) Patient Care team information Care Team Personnel Name: Hector Phelps MD Position: Reference Physician Member Role: PCP Address: [address] [place] [address] Telecom: Name: Talia Berger RN Position: S RN Member Role: Primary Care Nurse Name: Javid Rivera LPN Position: S RN Member Role: Primary Care Nurse Name: Tyesha Hodge LPN Position: S RN Member Role: Primary Care Nurse Name: Makayla Irvin RN Position: S RN Member Role: Primary Care Nurse Name: Danielle Norton RN Position: S RN Member Role: Primary Care Nurse Name: Dottie Mejia RN Position: S RN Member Role: Primary Care Nurse Name: Sascha Trejo RN Position: S RN Member Role: Primary Care Nurse Name: Dolly Devries LPN Position: S RN Member Role: Primary Care Nurse Care Team Related Persons Name: DANIELLE CRUZ Name: HANNY VERA Insurance Providers Guarantor name: ESTELA PADGETTCritical access hospital Information #: 1 Payer: MEDICARE B Payer Identifier: JUAN M Member Number: [id number] Group Number: [id number] Subscriber Identifier: [id number] Relationship to Subscriber: self Coverage Type: NA Coverage Verification Date: NA Telecom: Address:
--- NOTE | 2024-12-12 13:55 | A.OFFPC_ITS ---
Vital Signs 12/12/24 13:57 Height 5 ft 7 in Weight 191 lb 2 oz BMI 29.9 BP 124/82 Blood Pressure Location Lt brachial Position Sitting Pulse 72 Pulse Source Pulse Oximeter Temp 97.1 F Temp Source Temporal Artery Scan Pulse Oximetry (%) 94 Oxygen Delivery Method Room Air Intake Visit Reasons: Angle [place] 11/27 Manager [employer] Required: No Accompanied by: Self / Same As Patient Allergies acetaminophen (Percocet) Allergy (Unknown, Verified 12/12/24 13:56) Unknown oxycodone (Percocet) Allergy (Unknown, Verified 12/12/24 13:56) Unknown penicillin V Allergy (Unknown, Verified 12/12/24 13:56) Unknown Medication List - Last Reconciled 12/12/24 by Amna Beyer NP atorvastatin 20 mg PO DAILY cholecalciferol (vitamin D3) (Vitamin D3) 50 mcg PO DAILY furosemide 20 mg PO DAILY levothyroxine 125 mcg PO DAILY 90 days lisinopril 5 mg PO DAILY 90 days mecobalamin (vitamin B12) 1,000 mcg PO DAILY 90 days triamterene-hydrochlorothiazid 75-50 mg 0.5 tabs PO QAM 90 days Tobacco use date assessed: 12/12/24 Dental Screening Dental Screen Date: 09/09/24 HPI HPI Comments History of Present Illness Details 84 y/o Female Patient who presents to [facility] today for HDF. [place] [facility] [place] an evaluation after a mechanical Fall, and fou nd to have L1 fracture. There was an incidental finding of AAA 5.4 cm s/p EVAR (10/16/24). She was subsequently transferred and admitted to a SNF 10/22 - 11/27 for PT and OT. HTN: Triamterene, HCTZ and Lisinopril were held due to hypotension. Daughter has not been giving patient medications because she was told not to - and she does not monitor BP's at home. Daughter wondering if she should resume. PE B/L: Daughter reports that Patient continues to have Edema. Denies SOB, CP or wheezing. Daughter reports Patient has been having memory problems, asking for referral to neurology. [facility] Medical History (Updated 12/12/24 @ 17:29 by Amna Beyer NP) Fracture lumbar vertebra-closed Primary osteoarthritis of left hip Chronic kidney disease, stage III (moderate) Vitamin B12 deficiency (non anemic) Memory loss or impairment Obesity (BMI 30-39.9) Obstructive sleep apnea Acquired hypothyroidism Benign essential hypertension Pure hypercholesterolemia Vitamin D deficiency Hypothyroidism Hyperlipidemia Diabetes mellitus Hypertension Surgical History (Updated 12/12/24 @ 16:09 by Amna Beyer NP) S/P AAA (abdominal aortic aneurysm) repair History of biopsy History of tonsillectomy History of laparoscopic cholecystectomy Family History Father Medical history unknown Mother Medical history unknown Other Substance abuse Social History Housing: Apartment Alcohol intake: current Alcohol intake frequency: 0-2 drinks per day Alcohol type: wine Patient Tobacco Use Status: Former Tobacco user e-Cigarette/Vaping Use: Never Used Second Hand Smoke Exposure: Yes service: No Current occupational status: retired Cognitive needs: Yes (Cane) Hearing needs: No Vision needs: No Questionnaire PHQ-9 Over the last 2 weeks, how often have you been bothered by any of the following problems? 1. Little interest or pleasure in doing things: several days 2. Feeling down, depressed, or hopeless: not at all 3. Trouble falling or staying asleep, or sleeping too much: nearly every day 4. Feeling tired or having little energy: more than half the days 5. Poor appetite or overeating: not at all 6. Feeling bad about yourself - or that you are a failure or have let yourself or your family down: not at all 7. Trouble concentrating on things, such as reading the newspaper or watching television: not at all 8. Moving or speaking so slowly that other people could have noticed. Or the opposite - being so fidgety or restless that you have been moving around a lot more than usual: not at all 9. Thoughts that you would be better off or of hurting yourself in some way: not at all Total score: 6 94980 - PHQ-9 Billing: Yes Source: Developed by Drs. Mario Thomas, Soni Guthrie, Adrian Villa and colleagues, with an educational suraj from [email or web address]. Thrive Questionnaire Date Thrive assessed: 12/12/24 I am a: Parent/Caregiver What is your living situation today?: I choose not to answer this question Within the past 12 months, did the food you bought not last and you didn't have the money to get more?: I choose not to answer this question Within the past 12 months, did you worry whether your food would run out before you got money to buy more?: I choose not to answer this question Do you have trouble paying for medicines?: I choose not to answer this question Do you have trouble getting transportation to medical appointments?: I choose not to answer this question Do you have trouble paying your heating and electricity bill?: I choose not to answer this question Do you have trouble taking care of your child, family member or friend?: I choose not to answer this question Do you have trouble with day-to-day activities such as bathing, preparing meals, shopping, managing finances, etc.?: I choose not to answer this question Are you currently unemployed and looking for a job?: I choose not to answer this question Are you interested in more education?: I choose not to answer this question Please select the resources that you would like help with: None Currently or been in a relationship where the following occur: I choose not to answer THRIVE Score: 0 AUDIT C Alcohol Use Questionnaire (AUDIT-C) 1. How often do you have a drink containing alcohol?: Never Total Score: 0 DILLON-7 AMB Questionnaire DILLON-7 Date DILLON - 7 assessed: 12/12/24 Feeling nervous, anxious, or on edge: 0 = Not at all Not being able to stop or control worryin = Not at all Worrying too much about different things: 0 = Not at all Trouble relaxin = Not at all Being so restless that it is hard to sit still: 0 = Not at all Becoming easily annoyed or irritable: 0 = Not at all Feeling afraid as if something awful might happen: 0 = Not at all Total DILLON-7 score (0-4 normal; 5-9 mild; 10-14 moderate; 15-21 severe): 0 Source: Developed by Drs. Mario Thomas, Soni Guthrie, Adrian Villa and colleagues, with an educational suraj from [email or web address]. DILLON-7 Assessment Billing DILLON-7 Assessment Tool: DILLON-7 Assessment 10656 Review of Systems Const All systems reviewed & are unremarkable except as noted in HPI and below Neuro Denies confusion Psych Denies confusion Physical exam (Primary Care) Vital Signs: Last Vital Signs Temp 97.1 F 12/12/24 13:57 Pulse 72 12/12/24 13:57 BP 124/82 12/12/24 13:57 Pulse Ox 94 12/12/24 13:57 Oxygen Delivery Method Room Air 12/12/24 13:57 BMI result Body Mass Index 29.9 Tobacco/Smoking Status: Tobacco use Status Tobacco use date assessed 12/12/24 12/12/24 14:06 Patient Tobacco Use Status Former Tobacco user 12/12/24 14:06 e-Cigarette/Vaping Use Never Used 12/12/24 14:06 PHQ-9: PHQ-9 Score PHQ-9: Total score 6 12/12/24 16:12 Thrive Assessment: Date of Thrive Assessment Date Thrive assessed 12/12/24 12/12/24 14:06 Currently or been in a relationship where the following occur: I choose not to answer Const General: no acute distress; No confusion Nutritional Appearance: overweight Orientation/consciousness: patient oriented x3 and No confusion Resp Effort & Inspection: normal respiratory effort Auscultation: clear to auscultation bilaterally, no crackles, no rales, no rhonchi and no wheezes Cardio Heart sounds: S1 normal heart sound present and S2 normal heart sound present Neuro General: patient oriented x3 and No confusion Extrem Right lower extremity: lower leg Details: pitting edema Details: 3+ Left lower extremity: lower leg Details: pitting edema Details: 2+ Coding Level of Care Code Est Pt Level 4 (88735) Diagnoses Memory loss or impairment R41.3 Acquired hypothyroidism E03.9 S/P AAA (abdominal aortic aneurysm) repair Z98.890; Z86.79 Other closed fracture of first lumbar vertebra, initial encounter S32.018A Encounter type: initial encounter Lumbar vertebra fracture level: L1 Fracture morphology: other fracture Additional Codes DILLON-7 Assessment Billing - DILLON-7 Assessment Tool: DILLON-7 Assessment 78221 ([id number]) PHQ-9 - 37762 - PHQ-9 Billing: Yes ([id number]) Time Spent (min) 20 Assessment & Plan Assessment & Plan (1) Memory loss or impairment: Code(s): R41.3 - Other amnesia Category: Medical Plan: Will refer Pt to Neurology. (2) Acquired hypothyroidism: Code(s): E03.9 - Hypothyroidism, unspecified Category: Medical Plan: Pt will repeat Labs for TSH in few weeks. (3) S/P AAA (abdominal aortic aneurysm) repair: Code(s): Z98.890 - Other specified postprocedural states; Z86.79 - Personal history of other diseases of the circulatory system Category: Surgical Plan: Stable. Continue f/u with Vascular surgery. (4) Fracture lumbar vertebra-closed: Code(s): S32.009A - Unspecified fracture of unspecified lumbar vertebra, initial encounter for closed fracture Category: Medical Qualifiers: Encounter type: initial encounter Lumbar vertebra fracture level: L1 Fracture morphology: other fracture Qualified Code(s): S32.018A - Other fracture of first lumbar vertebra, initial encounter for closed fracture Plan: Stable. Orders: Referrals Neurology Referral R41.3 - Other amnesia
[2024-12-12 13:57] VITALS: BP 124/82; PULSE 72; TEMP 36.2; O2SAT 94; BMI 29.9
== END 2024-12-12 15:46 | disposition home or self-care (01) ==
LOC: HO.HMCH 13:32
PROVIDERS: PCP Internal Medicine; Visit Provider Nurse Practitioner Family
DX: R41.3 Other amnesia (principal); S32.018A Other fracture of first lumbar vertebra, initial encounter for closed fracture; E03.9 Hypothyroidism, unspecified; Z98.890 Other specified postprocedural states; Z86.79 Personal history of other diseases of the circulatory system

== ENCOUNTER → 2024-12-17 23:59 | Outpatient (BNV) | payer MEDICARE, SELFPAY | PROVIDERS: PCP Internal Medicine; Visit Provider Internal Medicine | DX: S32.018D Other fracture of first lumbar vertebra, subsequent encounter for fracture with routine healing (principal); I12.9 Hypertensive chronic kidney disease with stage 1 through stage 4 chronic kidney disease, or unspecified chronic kidney disease; E11.22 Type 2 diabetes mellitus with diabetic chronic kidney disease; N18.30 Chronic kidney disease, stage 3 unspecified | CPT/HCPCS: G0180 ==

== ENCOUNTER 2024-12-22 17:10 | Emergency (ER) | payer MEDICARE, SELFPAY ==
--- NOTE | ~2024-12-22 | CT_ITS ---
CLINICAL HISTORY: posterior H A, dizziness, weakness, vomiting CT Head Without Contrast: Comparison: 10/12/2024 Findings: Cortical sulci are prominent Basal ganglia are unremarkable No shift in midline structures No intraparenchymal bleeding or abnormal extra axial blood fluid collections Normal pituitary size. The cerebellar pontine angles and internal auditory canals are unremarkable. Middle ear cavities are clear. Mastoid air cells are clear There is mucosal thickening involving the ethmoid sinuses and the anterior right maxillary sinus Unremarkable orbital structures No depressed fractures Impression: Chronic involutional volume loss with no acute findings. This document has been electronically signed by: Nilson Salvador MD on 12/22/2024 19:59:55
[2024-12-22 17:44] VITALS: BP 178/65; PULSE 55; RESP 16; TEMP 36.8; O2SAT 97; BMI 32.5
--- NOTE | 2024-12-22 17:44 | ED.GENADULT ---
HPI - General Adult General Chief complaint: Headache Stated complaint: Headaches/Dizziness, sent from PCP Time Seen by Provider: 12/22/24 20:18 Source: patient, family, RN notes reviewed and old records reviewed Mode of arrival: EMS Limitations: altered mental status History of Present Illness ED Provider: Dr. Zoe Deleon HPI narrative: 84-year-old female with history of AAA status post repair, CKD stage 3, hypertension, hyperlipidemia, diabetes and hypothyroidism presenting with increasing confusion, episodic dizziness and severe headaches ongoing for several months after a fall that occurred back in September. Patient was evaluated and ultimately transferred to [facility] for AAA repair which was successful. She was discharged to a rehab facility and went home in November. Her daughter reports that since that time she has been having continued headaches that are intermittent. Treats her headaches with Tylenol and ibuprofen. Last dose of ibuprofen was approximately 2 p.m. this afternoon. Notes that she requires 24 hour care and many of her aides have been quitting lately because she is difficult. Reports that she often gets up in the middle of the night and can be found wandering. Reportedly walks with a walker at baseline. She has not normally a steady gait but has had frequent falls. No reported head strike or loss of consciousness in the last week. No reported fever, vision changes, stiff neck, abdominal pain, bowel changes, numbness/tingling/weakness of the extremities. She does have some associated vomiting with her headaches that has been an ongoing issue. Also noted to have dysuria that began today. No reported hematuria. Related Data Home Medications ?Medication ?Instructions ?Recorded ?Confirmed furosemide 20 mg tablet 20 mg PO DAILY 11/28/24 12/12/24 atorvastatin 20 mg tablet 20 mg PO DAILY 12/12/24 12/12/24 Previous Rx's ?Medication ?Instructions ?Recorded cholecalciferol (vitamin D3) 50 50 mcg PO DAILY #90 tabs 11/30/23 mcg (2,000 unit) tablet (Vitamin D3) mecobalamin (vitamin B12) 1,000 1,000 mcg PO DAILY 90 days #90 tabs 05/10/24 mcg chewable tablet lisinopril 5 mg tablet 5 mg PO DAILY 90 days #90 tabs 11/19/24 triamterene 75 0.5 tab PO QAM 90 days #45 tabs 11/19/24 mg-hydrochlorothiazide 50 mg tablet levothyroxine 125 mcg tablet 125 mcg PO DAILY 90 days #90 tabs 12/02/24 lorazepam 0.5 mg tablet 0.5 mg PO BEDTIME PRN 12/16/24 anxiety/agitation #30 tabs potassium chloride 10 mEq 10 meq PO DAILY 14 days #14 tabs 12/23/24 tablet,extended release (Klor-Con) Allergies Allergy/AdvReac Type Severity Reaction Status Date / Time acetaminophen (Percocet) Allergy Unknown Unknown Verified 12/22/24 17:49 oxycodone (Percocet) Allergy Unknown Unknown Verified 12/22/24 17:49 penicillin V Allergy Unknown Unknown Verified 12/22/24 17:49 Review of Systems Review of Systems: Yes all other systems are reviewed and are negative (As per HPI) PENDING SALE TO [facility] Past Medical History Attestation statement: The following information was validated with the patient. PENDING SALE TO [facility] Narrative: Diabetes hypertension sleep apnea hypothyroidism Source: old records reviewed, obtained from family (Daughter and granddaughter) and nursing notes reviewed Medical History Fracture lumbar vertebra-closed Primary osteoarthritis of left hip Chronic kidney disease, stage III (moderate) Vitamin B12 deficiency (non anemic) Memory loss or impairment Obesity (BMI 30-39.9) Obstructive sleep apnea Acquired hypothyroidism Benign essential hypertension Pure hypercholesterolemia Vitamin D deficiency Hypothyroidism Hyperlipidemia Diabetes mellitus Hypertension Surgical History S/P AAA (abdominal aortic aneurysm) repair History of biopsy History of tonsillectomy History of laparoscopic cholecystectomy Family History Family History Father Medical history unknown Mother Medical history unknown Other Substance abuse Social History Social History Housing: Apartment Alcohol intake: never Patient Tobacco Use Status: Former Tobacco user e-Cigarette/Vaping Use: Never Used Second Hand Smoke Exposure: Yes service: No Current occupational status: retired Cognitive needs: Yes (Cane) Hearing needs: No Vision needs: No Physical Exam ED Vital Signs: Vital Signs - 24 hr 12/22/24 21:11 12/22/24 22:25 12/23/24 02:39 Temperature 97.6 F 98.0 F Pulse Rate 56 60 66 Respiratory Rate 16 12 17 Blood Pressure 199/79 H 136/82 177/98 H Pulse Oximetry 99 94 98 Oxygen Delivery Method Room Air Room Air Room Air 12/23/24 05:31 12/23/24 07:06 Temperature 98.0 F 98.0 F Pulse Rate 52 52 Respiratory Rate 15 15 Blood Pressure 171/66 H 171/66 H Pulse Oximetry 96 96 Oxygen Delivery Method Room Air Room Air BMI result Body Mass Index 32.5 GENERAL: Chronically ill-appearing, conversant, no acute distress. SKIN: Normal skin color for ethnicity, warm, dry, no rashes noted. HEENT: Normocephalic, atraumatic, no stridor, posterior oropharynx nonerythematous, EOMI, PERRLA. NECK: Soft, supple, full ROM, midline structures nontender, no step-offs, no deformities, no lymphadenopathy. CHEST: Heart regular rate and rhythm, no murmurs, symmetric chest rise and fall. PULMONARY: Clear to auscultation bilaterally, no labored breathing, no wheezes/rhales/ rhonchi. ABDOMINAL: Soft, nondistended, nontender, positive bowel sounds in all quadrants. : Deferred. MUSCULOSKELETAL: Normal tone, full range of motion, no deformities, 2+ peripheral edema bilaterally. NEURO: Alert and oriented to person, CN II through XII intact, no focal neurologic deficits. PSYCHIATRIC: Flat affect, fluid speech, appropriate demeanor. Course Course Course Narrative: This is an RME performed by [place] [employer]: Additional HPI, ROS, PE not included below will be deferred to primary provider. Patient is an 84-year-old female who presents emergency department for evaluation, coming from PCP office, over the past 6 months she has been experiencing headaches. However over the past 4 days reporting increase in frequency and severity, posterior headache associated with dizziness and vomiting, weakness. NIH score of 0. Today has been endorsing dysuria Plan: Serum labs, ECG, head CT, orthostatic vital signs, urinalysis Medications Administered Discontinued Medications Generic Name Dose Route Start Last Admin Trade Name Freq PRN Reason Stop Dose Admin Acetaminophen 975 mg 12/22/24 21:36 12/22/24 23:42 Acetaminophen 325 Mg Tablet PO 12/22/24 21:37 975 mg ONCE ONE Administration Potassium Chloride 10 meq in 100 mls @ 100 mls/hr 12/22/24 20:30 12/23/24 02:34 Potassium Chloride/H20 IV 12/23/24 00:29 Not Given Q1H SHIRLEY Meclizine HCl 50 mg 12/22/24 21:36 12/22/24 23:42 Meclizine Hcl 25 Mg Tablet PO 12/22/24 21:37 50 mg ONCE ONE Administration Metoclopramide HCl 10 mg 12/22/24 21:36 12/22/24 23:42 Metoclopramide Hcl 10 Mg/2 Ml Vial IVPUSH 12/22/24 21:37 10 mg ONCE ONE Administration Oxycodone HCl 5 mg 12/23/24 02:35 12/23/24 02:44 Oxycodone Hcl Immed Release 5 Mg Tablet PO 12/23/24 02:36 5 mg ONCE ONE Administration Potassium Chloride 40 meq 12/22/24 20:19 12/22/24 23:42 Potassium Chloride Packet 20 Meq Packet PO 12/22/24 20:20 40 meq ONCE ONE Administration Potassium Chloride 20 meq 12/23/24 02:35 12/23/24 02:44 Potassium Chloride Packet 20 Meq Packet PO 12/23/24 02:36 20 meq ONCE ONE Administration Potassium Chloride 40 meq 12/23/24 04:13 12/23/24 06:11 Potassium Chloride Packet 20 Meq Packet PO 12/23/24 04:14 40 meq ONCE ONE Administration Procedures Procedure Narrative Procedure Narrative: Ultrasound-guided IV 18 gauge 1-3/4 inch IV placed in left upper extremity. Flushes well secured with Tegaderm adequate blood return performed by Ev Shell PA-C Medical Decision Making Medical Decision Making MDM Narrative: Patient presents with a chief complaint of headache. The differential diagnosis on this patient includes but is not limited to migraine headache, tension headache, cluster headache, subarachnoid hemorrhage, dissection, venous thrombosis, meningitis, sinusitis, bleeding or tumor. Based on history and physical exam, appropriate work-up was initiated. Medicated with Reglan for headache, meclizine for dizziness. Patient also has dysuria we will evaluate for UTI with urinalysis. 7am Patient feeling improved after several doses of potassium. She was unable to tolerate by the potassium after three bags. Continued oral repletion. I had an extensive discussion with her daughter regarding halfway placement and plan of care for the future. Daughter is already actively looking for alternative housing plans, including memory care units on several facilities in the area. She has been working with elderly services in the area. We talked about social work involvement, but the patient's daughter feels comfortable taking her home today and continuing in the outpatient route of placing her mom in a memory care unit.? Will continue outpatient care with VNA services. Differential Diagnosis Differential Diagnoses: The differential diagnosis associated with the presentation includes (As above) Admission/Observation Consideration of admission/observation: Escalation of care including admission/observation considered Lab Data MDM Lab Attestation statement: I reviewed the patient's lab results. Potassium notably low at 2.8. Repletion ordered. 12/22/24 18:29 12/22/24 18:29 Labs: Lab Results 12/22/24 12/23/24 12/23/24 Range/Units 18:29 00:18 03:29 WBC 8.6 (4.8-10.8) X10*3/uL RBC 3.75 L (4.20-5.50) X10*6/uL Hgb 11.7 L (12.0-16.0) g/dl Hct 35.2 L (37.0-47.0) % MCV 93.9 (80.0-98.0) fL MCH 31.2 (27.0-33.0) pg MCHC 33.2 (31.0-35.0) g/dl RDW 13.8 (11.0-16.0) % Plt Count 267 (160-400) X10*3/uL MPV 9.7 (9.4-12.3) fL Immature Gran % (Auto) 0.2 (0.0-0.4) % Neut % (Auto) 66.2 (45-73) % Lymph % (Auto) 23.2 (20-40) % Dawes % (Auto) 5.9 (2-11) % Eos % (Auto) 3.7 (0-4) % Baso % (Auto) 0.8 (0-2) % Lymph # (Auto) 2.0 (1.2-4.9) X10*3/uL Dawes # (Auto) 0.5 (0.1-1.2) X10*3/uL Eos # (Auto) 0.3 (0.0-0.4) X10*3/uL Baso # (Auto) 0.1 (0.0-0.2) X10*3/uL Abs Immat Gran (auto) 0.02 (0.00-0.03) X10*3/uL Absolute Neuts (auto) 5.7 (2.0-8.3) x10*3/uL Absolute Nucleated RBC 0.000 (0.0-0.012) X10*3/uL Nucleated RBC % (auto) 0.0 (0.0-0.2) /100WBC Sodium 141 (135-145) mmol/L Potassium 2.8 L* (3.3-5.1) mmol/L Serum Potassium 2.9 L* (3.3-5.1) mmol/L Chloride 101 (96-108) mmol/L Carbon Dioxide 28 (22-29) mmol/L Anion Gap 15 (12-20) BUN 12 (9-16) mg/dL Creatinine 0.99 (0.5-1.4) mg/dL Estim Creat Clear Calc 44.0 Estimated GFR 53 Random Glucose 127 H (60-115) mg/dL Calcium 8.8 D (8.4-10.2) mg/dL Magnesium 2.2 (1.6-2.6) mg/dL Total Bilirubin 0.3 (0.0-1.0) mg/dL AST 25 (5-31) U/L ALT 11 (0-31) U/L Alkaline Phosphatase 70 (39-117) U/L Troponin I High Sens 50.8 H* D 46.7 H (<3.5-17.0) ng/L Total Protein 6.0 L (6.5-8.0) g/dL Albumin 3.6 (3.5-5.0) g/dL Lipase 13 (8-78) U/L Urine Color Yellow Urine Appearance Clear Urine pH >= 9.0 (5.0-9.0) Ur Specific [place] <= 1.005 (1.005-1.025) Urine Protein Negative (Neg-Trace) mg/dL Urine Glucose (UA) Negative (Negative) mg/dL Urine Ketones Negative (Negative) mg/dL Urine Blood Trace H (Negative) Urine Nitrite Negative (Negative) Ur Leukocyte Esterase Negative (Negative) Urine RBC 0-2 (0-2) /HPF Urine WBC 0-5 (0-5) /HPF Ur Squamous Epith Cells 0-2 (0-2) /HPF Urine Bacteria None Seen (None Seen) Hyaline Casts 0-2 (0-2) /LPF Influenza Type A (PCR) NEGATIVE (Negative) Influenza Type B (PCR) NEGATIVE (Negative) RSV RNA Qual (PCR) NEGATIVE (Negative) SARS-CoV-2 RNA (RT-PCR) NEGATIVE (Negative) Radiology Impression Discussion of test interpretation with radiology: I have reviewed the radiologist's reading. Independent Historian Clinical information obtained from an independent historian. History obtained from or confirmed by: Other (Daughter and granddaughter) Tests considered The following testing was considered but not selected: Brain MRI to rule out posterior circulation CVA. Patient is ambulatory in the emergency department with some assistance. She has a steady gait and I do not feel that this is a central vertigo process. Clinical picture most consistent with peripheral vertigo and migraine headaches which have been ongoing for months, potentially years. Prescription Management I considered prescription management with: Other (potassium supplement) Chronic Conditions Patient?s care impacted by: Diabetes and Hypertension Discharge Plan Discharge Clinical Impression: Diuretic-induced hypokalemia, Delirium, Episodic peripheral vertigo, Headache, migraine, Acute urinary retention Patient Disposition: Home, Self-Care Instructions: Vertigo (ED), Hypokalemia (ED), Shell Catheter Placement and Care (ED), Acute Delirium (ED) Additional Instructions: Continue the plan to follow up with your primary care doctor and search for a group home facility. Take potassium daily until you are seen by your primary care doctor. Return to the emergency department with any new or worsening symptoms including: Worsening headaches despite medication, fevers greater than 100?, worsening confusion associated with severe headache, numbness or weakness in the arms or legs, facial droop, word-finding issues, any new symptom that concerns you. Call 911 with any medical emergency. [facility] will be contacting you within 2 business?days after being discharged from the Emergency?Department.? During this?phone call, they will inform you when your follow up appointment will be scheduled. If you have not received a call from [facility] after 2 business?days, please call the?office at [phone]. Prescriptions: New potassium chloride [Klor-Con 10] 10 mEq tablet extended release 10 meq PO DAILY 14 Days Qty: 14 0RF No Action cholecalciferol (vitamin D3) [Vitamin D3] 50 mcg (2,000 unit) tablet 50 mcg PO DAILY Qty: 90 3RF lisinopril 5 mg tablet 5 mg PO DAILY 90 Days Qty: 90 3RF triamterene-hydrochlorothiazid 75-50 mg tablet 0.5 tab PO QAM 90 Days Qty: 45 3RF levothyroxine 125 mcg tablet 125 mcg PO DAILY 90 Days Qty: 90 1RF lorazepam 0.5 mg tablet 0.5 mg PO BEDTIME PRN (Reason: anxiety/agitation) Qty: 30 0RF atorvastatin 20 mg tablet 20 mg PO DAILY mecobalamin (vitamin B12) 1,000 mcg tablet,chewable 1,000 mcg PO DAILY 90 Days Qty: 90 3RF furosemide 20 mg tablet 20 mg PO DAILY Referrals: Akash Dozier MD [Physician, Urology] Clinical Impression: Acute urinary retention Interventions: ED Discharge Assessment Last Done: 12/23/24 07:06 Discharge Date/Time: 12/23/24 07:06 Print Language: Iranian
--- NOTE | 2024-12-22 17:49 | ECG_ITS ---
Test Reason : dizzy Blood Pressure : */* mmHG Vent. Rate : 54 BPM Atrial Rate : 55 BPM P-R Int : * ms QRS Dur : 72 ms QT Int : 428 ms P-R-T Axes : * -14 7 degrees QTcB Int : 405 ms Sinus Bradycardia Otherwise normal ECG When compared with ECG of 12-Oct-2024 14:46, No significant changes seen Referred By: Sofi Park Electronically Signed By: Jerome Johnson
[2024-12-22 18:43] LABS: Hematocrit 35.2 % (37.0-47.0); Hemoglobin 11.7 g/dl (12.0-16.0); Imm Gran Abs Auto 0.02 X10*3/uL (0.00-0.03); Imm Gran Pct Auto 0.2 % (0.0-0.4); Lymphocytes Absolute Auto 2.0 X10*3/uL (1.2-4.9); MANUAL DIFF FLAG NO; Mean Corpuscular HGB Conc 33.2 g/dl (31.0-35.0); Mean Corpuscular Hemoglobin 31.2 pg (27.0-33.0); Mean Corpuscular Volume 93.9 fL (80.0-98.0); NRBC Abs Auto 0.000 X10*3/uL (0.0-0.012); NRBC Pct Auto 0.0 /100WBC (0.0-0.2); Platelet Count 267 X10*3/uL (160-400); Red Blood Count 3.75 X10*6/uL (4.20-5.50); White Blood Count 8.6 X10*3/uL (4.8-10.8)
[2024-12-22 19:11] LABS: Alanine Aminotransferase 11 U/L (0-31); Albumin Level 3.6 g/dL (3.5-5.0); Alkaline Phosphatase 70 U/L (39-117); Anion Gap 15 (12-20); Aspartate Amino Transferase 25 U/L (5-31); Blood Urea Nitrogen 12 mg/dL (9-16); Calcium 8.8 mg/dL (8.4-10.2); Carbon Dioxide 28 mmol/L (22-29); Chloride 101 mmol/L (96-108); Creatinine Clr Calc Pharmacy 44.0; Estimated Glomerular Filt Rate 53; Lipase 13 U/L (8-78); Magnesium 2.2 mg/dL (1.6-2.6); Potassium 2.8 mmol/L (3.3-5.1); Sodium 141 mmol/L (135-145); Total Protein 6.0 g/dL (6.5-8.0)
[2024-12-22 19:18] LABS: Resp Syncy Virus RNA Qual PCR NEGATIVE (Negative); SARS COV2 PCR INHOUSE NEGATIVE (Negative)
--- NOTE | 2024-12-22 19:30 | PC.NURSE ---
critical lab of 2.8 taken by Adi Alvarez
[2024-12-22 21:11] VITALS: BP 199/79; PULSE 56; RESP 16; O2SAT 99
--- NOTE | 2024-12-22 21:16 | PC.NURSE ---
Received pt from via W/C and per pts dtr pt here today w/ c/o h/a x 4 days, no relief w/ otc meds, today w/ n/v/ c/o painful urination. Pt actively dry-heaving during the interview
[2024-12-22 22:04] LABS: Troponin-I High Sensitivity 50.8 ng/L (<3.5-17.0)
[2024-12-22 22:25] VITALS: BP 136/82; PULSE 60; RESP 12; TEMP 36.4; O2SAT 94
--- NOTE | 2024-12-22 23:00 | PC.NURSE ---
this rn assumed care of pt at this time. pt noted to not have IV access, per previous rn pt is hard stick. this rn attempted x2, unable to obtain access. provider aware, awaiting US iv.
--- NOTE | 2024-12-22 23:23 | PC.NURSE ---
carlos martinez at bedside placing us guided iv
[2024-12-22] MEDS: Potassium Chloride/H20 10 MEQ/100 ML PIGGYBACK 100 MEQ IV (23:41)
[2024-12-22] MEDS: Potassium Chloride Packet 20 MEQ PACKET 40 MEQ PO (23:42)
--- NOTE | 2024-12-22 23:50 | PC.NURSE ---
pt medicated per mar, tolerated whole with water.
[2024-12-23] MEDS: Potassium Chloride/H20 10 MEQ/100 ML PIGGYBACK 100 MEQ IV ×2 (00:40→02:19)
[2024-12-23 01:22] LABS: Appearance Urine Clear; Glucose Urine UA Negative (Negative); PH >= 9.0 (5.0-9.0); Specific Gravity - Urine <= 1.005 (1.005-1.025); UMIC TRIGGER UACC YES
--- NOTE | 2024-12-23 02:25 | ECG_ITS ---
Test Reason : ELEVATED CARDIAC ENZYMES Blood Pressure : */* mmHG Vent. Rate : 63 BPM Atrial Rate : 63 BPM P-R Int : 136 ms QRS Dur : 76 ms QT Int : 486 ms P-R-T Axes : 53 -5 16 degrees QTcB Int : 497 ms Normal sinus rhythm Prolonged QT Abnormal ECG When compared with ECG of 22-Dec-2024 18:20, QT has lengthened Referred By: Zoe Deleon Electronically Signed By: Jerome Johnson
--- NOTE | 2024-12-23 02:36 | PC.NURSE ---
pt noted to be yelling out in pain at iv site, iv site assessed and potassium stopped. x3 rn checked iv site, no signs of infiltration noted.provider at bedside. states to hold the potassium iv and remove access. iv access removed and pt reports some relief.
[2024-12-23 02:39] VITALS: BP 177/98; PULSE 66; RESP 17; TEMP 36.7; O2SAT 98
[2024-12-23] MEDS: Potassium Chloride Packet 20 MEQ PACKET PO (02:44)
[2024-12-23] MEDS: oxyCODONE HCl Immed Release 5 MG TABLET PO (02:44)
[2024-12-23 03:58] LABS: Troponin-I High Sensitivity 46.7 ng/L (<3.5-17.0)
[2024-12-23 05:31] VITALS: BP 171/66; PULSE 52; RESP 15; TEMP 36.7; O2SAT 96
[2024-12-23] MEDS: Potassium Chloride Packet 20 MEQ PACKET 40 MEQ PO (06:11)
--- NOTE | 2024-12-23 06:21 | PC.NURSE ---
per MD ratliff. pt will be dc home with eason in place, education provided to family and leg bag placed.
[2024-12-23 07:06] VITALS: BP 171/66; PULSE 52; RESP 15; TEMP 36.7; O2SAT 96
== END 2024-12-23 07:06 | disposition home or self-care (01) ==
PROVIDERS: Nurse Practitioner Family; Emergency Provider Emergency Medicine; PCP Internal Medicine
DX: E23.2 Diabetes insipidus (principal); R42 Dizziness and giddiness; G43.909 Migraine, unspecified, not intractable, without status migrainosus; R33.9 Retention of urine, unspecified; R41.0 Disorientation, unspecified; R00.1 Bradycardia, unspecified; I45.81 Long QT syndrome; Z87.891 Personal history of nicotine dependence; Z03.818 Encounter for observation for suspected exposure to other biological agents ruled out; Z79.899 Other long term (current) drug therapy
CPT/HCPCS: 36415; 51702; 70450; 80053; 81001; 83690; 83735; 84132; 84484; 85025; 87637; 93005; 96374; 99285; J2765; J3480

== ENCOUNTER → 2024-12-22 17:49 | Outpatient (BNV) | payer MEDICARE, SELFPAY | PROVIDERS: Emergency Provider Emergency Medicine; PCP Internal Medicine; Visit Provider Internal Medicine Cardiovascular Disease | DX: R00.1 Bradycardia, unspecified (principal) | CPT/HCPCS: 93010 ==

== ENCOUNTER → 2024-12-22 17:50 | Outpatient (BNV) | payer MEDICARE, SELFPAY | PROVIDERS: PCP Internal Medicine; Visit Provider Radiology Diagnostic Radiology | DX: R51.9 Headache, unspecified (principal); R42 Dizziness and giddiness; R53.1 Weakness; R11.10 Vomiting, unspecified | CPT/HCPCS: 70450 ==

== ENCOUNTER → 2024-12-23 02:25 | Outpatient (BNV) | payer MEDICARE, SELFPAY | PROVIDERS: Emergency Provider Emergency Medicine; PCP Internal Medicine; Visit Provider Internal Medicine Cardiovascular Disease | DX: R94.31 Abnormal electrocardiogram [ECG] [EKG] (principal); R74.8 Abnormal levels of other serum enzymes | CPT/HCPCS: 93010 ==

== ENCOUNTER 2024-12-25 11:51 | Inpatient (IN) | payer MEDICARE, SELFPAY ==
[2024-12-25] VITALS (9 sets, daily range): BP systolic 147–200; BP diastolic 58–78; PULSE 53–66; RESP 12–18; TEMP 36.1–37; O2SAT 97–100
--- NOTE | 2024-12-25 12:04 | ED_ITS ---
HPI - General Adult General Chief complaint: Altered Mental Status Stated complaint: blood pressure, pain in cath Time Seen by Provider: 12/25/24 12:44 Source: patient, family (daughter), RN notes reviewed and old records reviewed Mode of arrival: wheelchair Limitations: altered mental status History of Present Illness ED Provider: Nadeem HPI narrative: Patient is an 84-year-old female with reported history of AAA status post repair, CKD stage 3, hypertension, hyperlipidemia, diabetes and hypothyroidism presenting to the ED with daughter who reports that patient has been becoming increasingly lethargic since her visit here on 12/22/2024. States symptoms have significantly worsened since yesterday and they have noted that her urine has become dark with small clots. Patient just had indwelling urinary catheter placed on 12/22 visit. Daughter denies any fevers, cough, nausea, vomiting, diarrhea, constipation. Patient denies any pain but is confused, only oriented to person and place. Daughter states catheter seems to be draining appropriately. MD complaint: lethargy, dark urine Onset (ago): day(s) Related Data Home Medications ?Medication ?Instructions ?Recorded ?Confirmed furosemide 20 mg tablet 20 mg PO DAILY 11/28/2411/17 atorvastatin 20 mg tablet 20 mg PO DAILY 12/12/2411/17 Previous Rx's ?Medication ?Instructions ?Recorded cholecalciferol (vitamin D3) 50 50 mcg PO DAILY #90 ta bs 11/30/23 mcg (2,000 unit) tablet (Vitamin D3) mecobalamin (vitamin B12) 1,000 1,000 mcg PO DAILY 90 days #90 tabs 05/10/24 mcg chewable tablet lisinopril 5 mg tablet 5 mg PO DAILY 90 days #90 ta bs 11/19/24 triamterene 75 0.5 tab PO QAM 90 days #45 t abs 11/19/24 mg-hydrochlorothiazide 50 mg tablet levothyroxine 125 mcg tablet 125 mcg PO DAILY 90 days #90 tabs 12/02/24 lorazepam 0.5 mg tablet 0.5 mg PO BEDTIME PRN anxiety/agitation #30 tabs potassium chloride 10 mEq 10 meq PO DAILY 14 days #14 tabs 12/23/24 tablet,extended release (Klor-Con) Allergies Allergy/AdvReac Type Severity Reaction Status Date / Time oxycodone (Percocet) Allergy Unknown Unknown Verified 12/25/24 12:03 penicillin V Allergy Unknown Unknown Verified 12/25/24 12:03 amoxicillin Allergy Unknown Verified 12/25/24 12:07 Review of Systems 2 Review of Systems: As per HPI Yes all other systems are reviewed and are negative Constitutional: Constitutional: Reports as per HPI Neurologic: Reports confusion Psychiatric: Psychiatric: Reports confusion [facility] Past Medical History Medical History Fracture lumbar vertebra-closed Primary osteoarthritis of left hip Chronic kidney disease, stage III (moderate) Vitamin B12 deficiency (non anemic) Memory loss or impairment Obesity (BMI 30-39.9) Obstructive sleep apnea Acquired hypothyroidism Benign essential hypertension Pure hypercholesterolemia Vitamin D deficiency Hypothyroidism Hyperlipidemia Diabetes mellitus Hypertension Surgical History S/P AAA (abdominal aortic aneurysm) repair History of biopsy History of tonsillectomy History of laparoscopic cholecystectomy Family History Family History Father Medical history unknown Mother Medical history unknown Other Substance abuse Social History Social History Housing: Apartment Unable to assess alcohol history related to: Unknown Alcohol intake: never Patient Tobacco Use Status: Former Tobacco user Smoked in Last 30 Days: No e-Cigarette/Vaping Use: Never Used Second Hand Smoke Exposure: Yes Use of substances other than those prescribed or required for medical reasons: Unknown Advance Directives: No Advance Directives Information Provided: Yes Do you have a plan to hurt others: No Plan service: No Current occupational status: retired Cognitive needs: Yes (Cane) Hearing needs: No Vision needs: No Physical Exam ED Vital Signs: Vital Signs - 24 hr 12/25/24 12:00 12/25/24 12:34 12/25/24 12:35 Temperature 96.9 F 98.2 F 98.2 F Pulse Rate 66 66 Respiratory Rate 16 12 Blood Pressure 147/67 H 178/66 H Pulse Oximetry 99 98 Oxygen Delivery Method Room Air Room Air BMI result Body Mass Index 30.0 Vital signs have been reviewed and appear to be correct. Blood pressure normal. Heart rate normal. Respiratory rate normal. Temperature normal. Oxygen saturation normal. Const General: cooperative, no acute distress, confusion and other (drowsy but wakes to voice) Orientation/consciousness: oriented to person, oriented to place and confusion Limitations: altered mental status HENMT Head: Yes normocephalic and Yes atraumatic Ears: external ears normal General nose exam: Normal external nose present Face and sinus: Yes face symmetric Mouth: oropharynx normal and moist mucous membranes Throat: Yes uvula midline Eyes Pupils: Equal, round and reactive pupils present Neck Neck: Yes normal visual inspection and Yes supple Resp Effort & Inspection: normal respiratory effort and able to speak in complete sentences Auscultation: clear to auscultation bilaterally Cardio Rate: regular rate Rhythm: regular rhythm Heart sounds: S1 normal heart sound present and S2 normal heart sound present GI Palpation (GI): Soft to palpation and nontender Auscultation: normoactive bowel sounds Other: Indwelling urinary catheter present on arrival draining dark, tea-colored urine General: Yes no CVA tenderness Back/Spine/Pelvis Back: no CVA tenderness Skin General skin exam: elasticity normal and turgor normal Neuro General: oriented to person, oriented to place, moves all extremities, no focal motor deficits, CN's II-XI intact bilaterally and confusion Cranial nerves: Yes Equal, round and reactive pupils present Cognition (Neuro): normal cognition Extrem General: Yes full ROM, Yes no calf tenderness and Yes edema (3+ pitting edema bilaterally, wearing compression stockings on arrival) Course Course Course Narrative: This is an RME: Additional HPI, ROS, PE not included below will be deferred to primary provider. RME assessment and note performed by: Yessenia Darden PA-C 84-year-old female with history of AAA status post repair, CKD stage 3, hypertension, hyperlipidemia, diabetes and hypothyroidism who prsents to the ER with complaints of hematuria in catheter placed on 12/22/2024. Tea colored urine in catheter bag. Daughter reports that she has had increased weakness. Pt lethargic in triage, advised charge nurse to bring pt back juan. She is alert and oriented to person and place only. Medications Administered Discontinued Medications Generic Name Dose Route Start Last Admin Trade Name Freq PRN Reason Stop Dose Admin Ceftriaxone Sodium 1 gm 12/25/24 13:36 12/25/24 14:02 Ceftriaxone Sodium 1 Gm Vial IVPUSH 12/25/24 13:37 1 gm ONCE ONE Administration Medical Decision Making Medical Decision Making [facility] Narrative: Patient is an 84-year-old female with reported history of AAA status post repair, CKD stage 3, hypertension, hyperlipidemia, diabetes and hypothyroidism presenting to the ED with daughter who reports that patient has been becoming increasingly lethargic since her visit here on 12/22/2024. On exam patient is awake, A+Ox3, BP elevated, VS otherwise WNL, afebrile, normal neurological exam without focal deficits, physical exam findings as above. Given reported symptoms and physical exam findings, initial differential includes but is not limited to UTI, dehydration, electrolyte abnormality . Labs notable for leukocytosis, hypokalemmia, elevated lactic. IV potassium ordered, mag WNL. UA notable for 1+ leukocytes, positive nitrites, 3+ blood, 3+ protein, 2+ bacteria. IV ceftriaxone ordered. Case discussed with Dr. Lynn who accepts admission to medicine. Differential Diagnosis Differential Diagnoses: The differential diagnosis associated with the presentation includes as per [facility] Admission/Observation Consideration of admission/observation: Escalation of care including admission/observation considered Consult Healthcare Provider Management of the patient was discussed with: Hospitalist Lab Data [facility] Lab Attestation statement: I reviewed the patient's lab results. as per [facility] 12/25/24 13:46 12/25/24 13:50 Labs: Lab Results 12/25/24 12/25/24 12/25/24 Range/Units 12:53 13:46 13:50 WBC 9.5 (4.8-10.8) X10*3/uL RBC 3.73 L (4.20-5.50) X10*6/uL Hgb 11.8 L (12.0-16.0) g/dl Hct 35.2 L (37.0-47.0) % MCV 94.4 (80.0-98.0) fL MCH 31.6 (27.0-33.0) pg MCHC 33.5 (31.0-35.0) g/dl RDW 14.0 (11.0-16.0) % Plt Count 306 (160-400) X10*3/uL MPV 9.2 L (9.4-12.3) fL Immature Gran % (Auto) 0.4 (0.0-0.4) % Neut % (Auto) 76.0 H (45-73) % Lymph % (Auto) 14.9 L (20-40) % [place] % (Auto) 4.9 (2-11) % Eos % (Auto) 3.2 (0-4) % Baso % (Auto) 0.6 (0-2) % Lymph # (Auto) 1.4 (1.2-4.9) X10*3/uL [place] # (Auto) 0.5 (0.1-1.2) X10*3/uL Eos # (Auto) 0.3 (0.0-0.4) X10*3/uL Baso # (Auto) 0.1 (0.0-0.2) X10*3/uL Abs Immat Gran (auto) 0.04 H (0.00-0.03) X10*3/uL Absolute Neuts (auto) 7.2 (2.0-8.3) x10*3/uL Absolute Nucleated RBC 0.000 (0.0-0.012) X10*3/uL Nucleated RBC % (auto) 0.0 (0.0-0.2) /100WBC Sodium 141 (135-145) mmol/L Potassium 2.6 L* (3.3-5.1) mmol/L Chloride 100 (96-108) mmol/L Carbon Dioxide 33 H (22-29) mmol/L Anion Gap 11 L (12-20) BUN 12 (9-16) mg/dL Creatinine 0.95 (0.5-1.4) mg/dL Estim Creat Clear Calc 44.1 Estimated GFR 56 Random Glucose 152 H (60-115) mg/dL Lactic Acid 2.2 H* (0.5-2.0) mmol/L Calcium 9.5 D (8.4-10.2) mg/dL Magnesium 2.2 (1.6-2.6) mg/dL Total Bilirubin 0.4 (0.0-1.0) mg/dL Direct Bilirubin 0.2 (0.0-0.5) mg/dL AST 21 (5-31) U/L ALT 10 (0-31) U/L Alkaline Phosphatase 71 (39-117) U/L Total Creatine Kinase 32 (26-140) U/L Troponin I High Sens 31.5 H (<3.5-17.0) ng/L Total Protein 6.1 L (6.5-8.0) g/dL Albumin 3.7 (3.5-5.0) g/dL Urine Color BROWN Urine Appearance Cloudy Urine pH >= 9.0 (5.0-9.0) Ur Specific [place] <= 1.005 (1.005-1.025) Urine Protein 300 (3+) H (Neg-Trace) mg/dL Urine Glucose (UA) Negative (Negative) mg/dL Urine Ketones Negative (Negative) mg/dL Urine Blood Large (3+) H (Negative) Urine Nitrite Positive H (Negative) Ur Leukocyte Esterase Small (1+) H (Negative) Urine RBC >20 H (0-2) /HPF Urine WBC 6-10 H (0-5) /HPF Ur Squamous Epith Cells 6-10 (0-2) /HPF Other Crystals Present Urine Bacteria 2+ (None Seen) Hyaline Casts 6-10 (0-2) /LPF Granular Casts Present Influenza Type A (PCR) NEGATIVE (Negative) Influenza Type B (PCR) NEGATIVE (Negative) RSV RNA Qual (PCR) NEGATIVE (Negative) SARS-CoV-2 RNA (RT-PCR) NEGATIVE (Negative) Independent Historian Clinical information obtained from an independent historian. History obtained from or confirmed by: Other (daughter) External Record Review External record reviewed: Inpatient record, Office record and Outpatient record Prescription Management I considered prescription management with: Antibiotic Critical Care Time Critical Care Time Critical Care Time: Yes Total Critical Care Time: 33 Attestation: I have personally provided critical care time exclusive of time spent on separately billable procedures. Time includes review of lab data, radiology results, discussion with consultants, and monitoring for potential decompensation. Intervention performed as documented. Discharge Plan Discharge Print Language: Czech
--- NOTE | 2024-12-25 12:42 | ECG_ITS ---
Test Reason : weakness Blood Pressure : */* mmHG Vent. Rate : 57 BPM Atrial Rate : * BPM P-R Int : * ms QRS Dur : 80 ms QT Int : 458 ms P-R-T Axes : * -14 -2 degrees QTcB Int : 445 ms Sinus bradycardia Cannot rule out Anterior infarct , age undetermined Abnormal ECG When compared with ECG of 23-Dec-2024 02:51, Nonspecific T wave abnormality now evident in Anterolateral leads QT has shortened Referred By: Yessenia Darden Electronically Signed By: Jerome Johnson
[2024-12-25 13:15] LABS: Appearance Urine Cloudy; Glucose Urine UA Negative (Negative); PH >= 9.0 (5.0-9.0); Specific Gravity - Urine <= 1.005 (1.005-1.025); UMIC TRIGGER UACC YES
[2024-12-25 13:20] LABS: UACC Culture Trigger YES
[2024-12-25 13:21] LABS: Other Crystals Urine Present
--- OUTSIDE RECORDS SUMMARY | 2024-12-25 13:27 | XMS_ITS | Patient Health Record ---
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 Plan Of Treatment Pending Test Test Name Order Date 40391- Debride <25 sq cm 12/12/2017 Insurance Providers Payer Name Payer Address Payer Phone Subscriber Number Group Number Insured Name Patient Relationship to Insured Coverage Start Date Coverage End Date Medicare [employer] [address] [place] [address] [id number] Angle Reynolds Self - patient is the insured Medical (General) History Medical History History ICD Code Cancer High blood pressure Gall bladder problems Measles Mumps Chicken pox thyroid Surgical History Surgery Date(Month/Year) tonsillectomy 194 gall bladder removed
[2024-12-25 13:56] LABS: MANUAL DIFF FLAG NO
[2024-12-25 13:58] LABS: Hematocrit 35.2 % (37.0-47.0); Hemoglobin 11.8 g/dl (12.0-16.0); Imm Gran Abs Auto 0.04 X10*3/uL (0.00-0.03); Imm Gran Pct Auto 0.4 % (0.0-0.4); Lymphocytes Absolute Auto 1.4 X10*3/uL (1.2-4.9); Mean Corpuscular HGB Conc 33.5 g/dl (31.0-35.0); Mean Corpuscular Hemoglobin 31.6 pg (27.0-33.0); Mean Corpuscular Volume 94.4 fL (80.0-98.0); NRBC Abs Auto 0.000 X10*3/uL (0.0-0.012); NRBC Pct Auto 0.0 /100WBC (0.0-0.2); Platelet Count 306 X10*3/uL (160-400); Red Blood Count 3.73 X10*6/uL (4.20-5.50); White Blood Count 9.5 X10*3/uL (4.8-10.8)
[2024-12-25 14:13] LABS: Alanine Aminotransferase 10 U/L (0-31); Albumin Level 3.7 g/dL (3.5-5.0); Alkaline Phosphatase 71 U/L (39-117); Anion Gap 11 (12-20); Aspartate Amino Transferase 21 U/L (5-31); Blood Urea Nitrogen 12 mg/dL (9-16); Calcium 9.5 mg/dL (8.4-10.2); Carbon Dioxide 33 mmol/L (22-29); Chloride 100 mmol/L (96-108); Creatinine Clr Calc Pharmacy 44.1; Estimated Glomerular Filt Rate 56; Magnesium 2.2 mg/dL (1.6-2.6); Sodium 141 mmol/L (135-145); Total Protein 6.1 g/dL (6.5-8.0)
[2024-12-25 14:14] LABS: Potassium 2.6 mmol/L (3.3-5.1)
[2024-12-25 14:21] LABS: Troponin-I High Sensitivity 31.5 ng/L (<3.5-17.0)
[2024-12-25 14:40] LABS: Resp Syncy Virus RNA Qual PCR NEGATIVE (Negative); SARS COV2 PCR INHOUSE NEGATIVE (Negative)
--- NOTE | 2024-12-25 15:36 | PM.IMHP ---
History of Present Illness Date of Service: 12/25/24 Attending physician on admission: Ezio Steiner Chief Complaint: weakness, dark urine This is an 84 year old female who was seen in the ED 12/22 for dizziness found to have hypokalemia and urinary retention with Eason catheter inserted, patient was sent home with Eason catheter. History is primarily obtained with the patient's daughter at the bedside. Patient has had significant deterioration over the past several months with multiple acute medical issues. Since she was seen in the emergency department 3 days ago she has noted increasing concentrated urine, intermittent small clots. Frequent reports of pain in multiple areas, chronically swollen lower extremities. In the emergency department patient was afebrile, lab work revealed no leukocytosis. Urinalysis consistent with UTI, Started IV ceftriaxone. Lab work was significant for hypokalemia with a potassium 2.6 as well as lactic acid of 2.2. Patient's daughter at the bedside notes progression of underlying cognitive impairment although no official diagnosis of dementia has been made. [place] [facility] [place] an evaluation after a mechanical Fall, and found to have L1 fracture. There was an incidental finding of AAA 5.4 cm s/p EVAR (10/16/24). She was subsequently transferred and admitted to a SNF 10/22 - 11/27 for PT and OT. Since that time her blood pressure medications have been on hold. In the ED her blood pressure was elevated. Patient complained of pain in multiple areas which her daughter states has been the case chronically and more so recently. She will be admitted for further management of UTI, hypokalemia. Review of Systems Review of Systems: Yes all other systems are reviewed and are negative Constitutional: Constitutional: Denies chills and Denies fever(s) Cardiovascular: Cardiovascular: Denies chest pain Respiratory: Respiratory: Denies cough [facility] Medical History Fracture lumbar vertebra-closed Primary osteoarthritis of left hip Chronic kidney disease, stage III (moderate) Vitamin B12 deficiency (non anemic) Memory loss or impairment Obesity (BMI 30-39.9) Obstructive sleep apnea Acquired hypothyroidism Benign essential hypertension Pure hypercholesterolemia Vitamin D deficiency Hypothyroidism Hyperlipidemia Diabetes mellitus Hypertension Family History Father Medical history unknown Mother Medical history unknown Other Substance abuse Surgical History S/P AAA (abdominal aortic aneurysm) repair History of biopsy History of tonsillectomy History of laparoscopic cholecystectomy Social History Housing: Apartment Unable to assess alcohol history related to: Unknown Alcohol intake: never Patient Tobacco Use Status: Former Tobacco user Smoked in Last 30 Days: No e-Cigarette/Vaping Use: Never Used Second Hand Smoke Exposure: Yes Use of substances other than those prescribed or required for medical reasons: Unknown Advance Directives: No Advance Directives Information Provided: Yes Do you have a plan to hurt others: No Plan service: No Current occupational status: retired Cognitive needs: Yes (Cane) Hearing needs: No Vision needs: No Meds Allergies Allergy/AdvReac Type Severity Reaction Status Date / Time oxycodone (Percocet) Allergy Unknown Unknown Verified 12/25/24 12:03 penicillin V Allergy Unknown Unknown Verified 12/25/24 12:03 amoxicillin Allergy Unknown Verified 12/25/24 12:07 Active Medications: Current Medications Acetaminophen (Acetaminophen 325 Mg Tablet) 650 mg PO Q6H PRN PRN Reason: Pain, Mild 1-3,fever,headache Calcium Carbonate (Calcium Carbonate 750 Mg Tab.Chew) 750 mg PO Q4H PRN PRN Reason: Heartburn Heparin Sodium (Porcine) (Heparin Sodium,Porcine 5,000 Unit/Ml Vial) 5,000 unit SUBCUT Q12H [facility] Potassium Chloride (Potassium Chloride/H20) 10 meq in 100 mls @ 100 mls/hr IV Q1H [facility] Stop: 12/25/24 18:14 Magnesium Hydroxide (Milk Of Magnesia 30 Ml Oral.Susp) 30 ml PO DAILY PRN PRN Reason: Constipation Melatonin (Melatonin 3 Mg Tablet) 6 mg PO BEDTIME PRN PRN Reason: Insomnia Sodium Chloride (0.9 % Sodium Chloride Flush 3 Ml Syringe) 3 ml IVFLUSH QSHIFT PENDING SALE TO [facility] Home Medications ?Medication ?Instructions ?Recorded ?Confirmed ?Last Taken ?Type furosemide 20 mg tablet 30 mg PO DAILY 11/28/24 12/25/24 Unknown History atorvastatin 20 mg tablet 20 mg PO BEDTIME 12/12/24 12/25/24 Unknown History aspirin 81 mg tablet 81 mg PO DAILY 12/25/24 12/25/24 Unknown History docusate sodium 100 mg capsule 200 mg PO BID 12/25/24 12/25/24 Unknown History sennosides 8.6 mg tablet (senna) 8.6 mg PO BEDTIME 12/25/24 12/25/24 Unknown History Physical Exam Vital Signs and Narrative: Vital Signs: Last Vital Signs Temp 98.2 F 12/25/24 12:35 Pulse 66 12/25/24 12:34 Resp 12 12/25/24 12:34 BP 178/66 H 12/25/24 12:34 Pulse Ox 98 12/25/24 12:34 O2 Del Method Room Air 12/25/24 12:34 BMI result Body Mass Index 30.0 Const: General: alert and awake Nutritional Appearance: average body habitus Orientation/consciousness: oriented to person Resp: Effort & Inspection: normal respiratory effort, able to speak in complete sentences, no respiratory distress and no use of accessory muscles Auscultation: clear to auscultation bilaterally Cardio: Rate: regular rate GI: Inspection: No distended Palpation (GI): Soft to palpation and nontender Neuro: Other: grossly non-focal General: oriented to person and moves all extremities Extrem: Other: b/l lower extremity edema; b/l legs sensitive to touch Results Labs 12/25/24 13:46 12/25/24 13:50 Labs: Laboratory Results - last 24 hr 12/25/24 12/25/24 12/25/24 12:53 13:46 13:50 MCV 94.4 MCH 31.6 MCHC 33.5 RDW 14.0 Plt Count 306 MPV 9.2 L Immature Gran % (Auto) 0.4 Neut % (Auto) 76.0 H Lymph % (Auto) 14.9 L [place] % (Auto) 4.9 Eos % (Auto) 3.2 Baso % (Auto) 0.6 Lymph # (Auto) 1.4 [place] # (Auto) 0.5 Eos # (Auto) 0.3 Baso # (Auto) 0.1 Abs Immat Gran (auto) 0.04 H Absolute Neuts (auto) 7.2 Absolute Nucleated RBC 0.000 Nucleated RBC % (auto) 0.0 Anion Gap 11 L Estim Creat Clear Calc 44.1 Estimated GFR 56 Random Glucose 152 H Lactic Acid 2.2 H* Calcium 9.5 D Magnesium 2.2 Total Bilirubin 0.4 Direct Bilirubin 0.2 AST 21 ALT 10 Alkaline Phosphatase 71 Total Creatine Kinase 32 Total Protein 6.1 L Albumin 3.7 Urine Color BROWN Urine Appearance Cloudy Urine pH >= 9.0 Ur Specific [place] <= 1.005 Urine Protein 300 (3+) H Urine Glucose (UA) Negative Urine Ketones Negative Urine Blood Large (3+) H Urine Nitrite Positive H Ur Leukocyte Esterase Small (1+) H Urine RBC >20 H Urine WBC 6-10 H Ur Squamous Epith Cells 6-10 Other Crystals Present Urine Bacteria 2+ Hyaline Casts 6-10 Granular Casts Present Influenza Type A (PCR) NEGATIVE Influenza Type B (PCR) NEGATIVE RSV RNA Qual (PCR) NEGATIVE SARS-CoV-2 RNA (RT-PCR) NEGATIVE Assessment and Plan (1) Acute UTI: Status: Acute (2) Hypokalemia: Status: Acute Plan This is a 84-year-old female with history of underlying cognitive impairment, HLD, HTN, hypothyroidism, CKD3 [place] [facility] [place] found to have L1 fracture and incidental finding of AAA status post EVAR, seen in the emergency department 12/22 for dizziness and diagnosed with a UTI and hypokalemia who returns with increasing generalized weakness and confusion found to have UTI UTI Continue IV ceftriaxone Follow urine culture urinary retention eason out for voiding trial straight cath prn Toxic metabolic encephalopathy on a background of dementia Seems to be gradually declining over the past several months, may be compounded by above UTI uncontrolled HTN bp meds d/c during [place] [facility] [place] reason outpatient med rec reviewed, will Resume 5 mg lisinopril also previously on triamterene/hydrochlorothiazide ? d/c when started on lasix p.r.n. IV hydralazine as needed for blood pressure greater than 180 systolic will attempt to review records [place] [facility] Hypokalemia Likely due to Lasix (reportedly taking for leg edema not CHF) Receiving IV replacement Trend BMP Acute lactic acidosis Does not meet sepsis criteria Question due to dehydration cognitive impairment/dementia seems to have had significant decline over the past few months; has been in and out of hospital/rehab not on baseline meds [place] [facility] [place]due to bradycardia leg edema hold lasix until k improved keep legs elevated continue compression stockings Hypothyroidism Continue Synthroid CKD3 at baseline AAA s/p EVAR [place] [facility] [place], statin willard CPAP (reportedly non-compliant) obesity class I bmi 30.0 weight loss encouraged DVT prophylaxis-heparin Code status-DNR/DNI dispo - probable STR Patient will likely require 2 midnight stay in the hospital for management of encephalopathy, UTI, hypokalemia requiring IV potassium replacement, IV antibiotics Quality Stroke Does the patient have a stroke diagnosis?: No VTE Prior VTE?: No VTE Risk Level:: Medical - moderate - high VTE Device Contraindication: N/A - Device Ordered VTE Drug Contraindication: N/A - Med Ordered
[2024-12-25] MEDS: Potassium Chloride/H20 10 MEQ/100 ML PIGGYBACK 100 MEQ IV ×4 (15:57→19:13)
[2024-12-25 15:59] LABS: Reflex Lactate? Lactic Acid Added
--- NOTE | 2024-12-25 15:59 | PHA.MEDREC ---
Addendum entered by Cory Mcdermott PharmD 12/25/24 16:37: reviewed Original Note: Pharmacy Consult ? Medication Reconciliation Pharmacy has completed the medication reconciliation. Spoke to patients daughter at bedside to confirm med list. Daughter states patient is no longer taking Vitamin D3 50 mcg, Levothyroxine 112 mcg (now on Levothyroxine 125 mcg), Lisinopril 5 mg, Vitamin B-12 1,000 mg, Remeron 7.5 mg, and Triamterene 75 mg-HCTZ 50 mg.
[2024-12-25 16:48] LABS: ~Lactic Acid-LAB USE ONLY 1.9 mmol/L (0.5-2.0)
[2024-12-25] MEDS: oxyCODONE HCl Immed Release 5 MG TABLET 2.5 MG PO (16:55)
--- NOTE | 2024-12-25 18:04 | PC.NURSE ---
This nurse Removed Shell per provider orders. PT tolerated it well.
--- NOTE | 2024-12-25 19:01 | MHC.EDTECH ---
pt assisted on bedpan for urine output. Pericare was done, pt was boosted and readjusted in bed, blankets given, no other needs at this time
--- NOTE | 2024-12-25 19:30 | PC.RT ---
pt has not worn cpap in years and does not want it. therefore order is dc'd.
[2024-12-25 19:40] LABS: Potassium 3.0 mmol/L (3.3-5.1)
[2024-12-26] VITALS (7 sets, daily range): BP systolic 140–174; BP diastolic 61–72; PULSE 65–74; RESP 17–18; TEMP 36.2–36.9; O2SAT 96–98
[2024-12-26] MEDS: oxyCODONE HCl Immed Release 5 MG TABLET 2.5 MG PO (02:45)
[2024-12-26] MEDS: 0.9 % Sodium Chloride Flush 3 ML SYRINGE IVFLUSH ×4 (02:49→21:49)
[2024-12-26 04:44] LABS: Anion Gap 12 (12-20); Blood Urea Nitrogen 11 mg/dL (9-16); Calcium 9.1 mg/dL (8.4-10.2); Carbon Dioxide 30 mmol/L (22-29); Chloride 102 mmol/L (96-108); Creatinine Clr Calc Pharmacy 53.7; Estimated Glomerular Filt Rate > 60; Potassium 3.1 mmol/L (3.3-5.1); Sodium 141 mmol/L (135-145)
--- NOTE | 2024-12-26 08:35 | PC.NURSE ---
Patient alert to self. Daughter at bedside. This RN assumed care of patient @ 0700. Patient emotional at times but redirectable,bed alarm on. Patient attempted to use bedpan, no results noted. Patient hypertensive 141/61 otherwise all other VSS. PAtient admitted to hospital awaiting bed placement
[2024-12-26] MEDS: Potassium Chloride ER 20 MEQ TAB.ER.PRT 40 MEQ PO (08:45)
[2024-12-26] MEDS: Potassium Chloride ER 20 MEQ TAB.ER.PRT PO ×2 (08:46→21:40)
--- NOTE | 2024-12-26 09:02 | PC.NURSE ---
Patient attmepted to bed santo c/o pain from the santo, purewick in place no urine output yet
--- NOTE | 2024-12-26 11:38 | MHC.CM.PN ---
IMM 12/26/24, Pt lives alone, and has help coming in from family and private assistance. PCP confirmed: Dr. Baumann, HCP is her dtr Salma, copy requested. For DME, pt uses a cane and w/c when she is tired. She was recently in [facility] and then at [facility]. Family to transport her home at [place], DCP: home, resume home care services. CM to follow for DC needs.
--- NOTE | 2024-12-26 13:15 | HO.PM.IMPN ---
Subjective Subjective Date of Service: 12/26/24 Interval History: Seen and examined this morning Follow-up for UTI, hypokalemia had a bad night no specific complaints due to dementia poor historian Constitutional Constitutional: Denies chills and Denies fever(s) Cardiovascular Cardiovascular: Denies chest pain Neurologic Neurologic: Reports confusion Psychiatric Psychiatric: Reports confusion Physical Exam Vital Signs: Vital Signs: Last Vital Signs Temp 98.2 F 12/26/24 12:00 Pulse 65 12/26/24 12:00 Resp 17 12/26/24 12:00 BP 174/72 H 12/26/24 12:00 Pulse Ox 98 12/26/24 12:00 O2 Del Method Room Air 12/26/24 12:00 BMI result Body Mass Index 30.0 Const: General: alert, awake and confusion Nutritional Appearance: overweight Orientation/consciousness: oriented to person and confusion Resp: Effort & Inspection: normal respiratory effort, able to speak in complete sentences, no respiratory distress and no use of accessory muscles Auscultation: clear to auscultation bilaterally Cardio: Rate: regular rate GI: Inspection: No distended Palpation (GI): Soft to palpation and nontender Neuro: Other: grossly non-focal General: oriented to person, moves all extremities and confusion Extrem: Other: b/l lower extremity edema; b/l legs sensitive to touch Objective Data Active Medications Acetaminophen (Acetaminophen 325 Mg Tablet) 650 mg PO Q6H PRN PRN Reason: Pain, Mild 1-3,fever,headache Last Admin: 12/25/24 17:05 Dose: 650 mg Documented By: JUAN FRANCISCO Aspirin (Aspirin 81 Mg Tab.Chew) 81 mg PO DAILY [facility] Last Admin: 12/26/24 08:45 Dose: 81 mg Documented By: BARON Atorvastatin Calcium (Atorvastatin Calcium 20 Mg Tablet) 20 mg PO BEDTIME [facility] Last Admin: 12/25/24 20:10 Dose: Not Given Documented By: COOPEB Non-Admin Reason: Patient Refused Calcium Carbonate (Calcium Carbonate 750 Mg Tab.Chew) 750 mg PO Q4H PRN PRN Reason: Heartburn Ceftriaxone Sodium (Ceftriaxone Sodium 1 Gm Vial) 1 gm IVPUSH Q24H [facility] Docusate Sodium (Docusate Sodium 100 Mg Capsule) 200 mg PO BID [facility] Last Admin: 12/26/24 08:46 Dose: 200 mg Documented By: BARON Heparin Sodium (Porcine) (Heparin Sodium,Porcine 5,000 Unit/Ml Vial) 5,000 unit SUBCUT Q12H [facility] Last Admin: 12/26/24 06:45 Dose: 5,000 unit Documented By: GOLDIE Hydralazine HCl (Hydralazine Hcl 20 Mg/Ml Vial) 5 mg IVPUSH Q6H PRN; Protocol PRN Reason: SBP >180 Levothyroxine Sodium (Levothyroxine Sodium 125 Mcg Tablet) 125 mcg PO DAILY [facility] Last Admin: 12/26/24 08:45 Dose: 125 mcg Documented By: BARON Lisinopril (Lisinopril 5 Mg Tablet) 5 mg PO DAILY [facility]; Protocol Last Admin: 12/26/24 08:46 Dose: 5 mg Documented By: BARON Lorazepam (Lorazepam 0.5 Mg Tablet) 0.5 mg PO BEDTIME PRN PRN Reason: anxiety/agitation Last Admin: 12/25/24 20:13 Dose: 0.5 mg Documented By: CHI Magnesium Hydroxide (Milk Of Magnesia 30 Ml Oral.Susp) 30 ml PO DAILY PRN PRN Reason: Constipation Melatonin (Melatonin 3 Mg Tablet) 6 mg PO BEDTIME PRN PRN Reason: Insomnia Oxycodone HCl (Oxycodone Hcl Immed Release 5 Mg Tablet) 2.5 mg PO Q6H PRN PRN Reason: Pain, Moderate(Pain Scale 4-6) Last Admin: 12/26/24 02:45 Dose: 2.5 mg Documented By: SOHAM Potassium Chloride (Potassium Chloride Er 20 Meq Tab.Er.Prt) 20 meq PO BID [facility] Last Admin: 12/26/24 08:46 Dose: 20 meq Documented By: BARON Senna (Sennosides 8.6 Mg Tablet) 8.6 mg PO BEDTIME [facility] Last Admin: 12/25/24 20:10 Dose: Not Given Documented By: CHI Non-Admin Reason: Patient Refused Sodium Chloride (0.9 % Sodium Chloride Flush 3 Ml Syringe) 3 ml IVFLUSH QSHIFT [facility] Last Admin: 12/26/24 08:46 Dose: 3 ml Documented By: BARON Labs 12/25/24 13:46 07/11/25 04:24 Labs: Laboratory Results - last 24 hr 12/25/24 12/25/24 12/25/24 12:53 13:46 13:50 MCV 94.4 MCH 31.6 MCHC 33.5 RDW 14.0 Plt Count 306 MPV 9.2 L Immature Gran % (Auto) 0.4 Neut % (Auto) 76.0 H Lymph % (Auto) 14.9 L [place] % (Auto) 4.9 Eos % (Auto) 3.2 Baso % (Auto) 0.6 Lymph # (Auto) 1.4 Saline # (Auto) 0.5 Eos # (Auto) 0.3 Baso # (Auto) 0.1 Abs Immat Gran (auto) 0.04 H Absolute Neuts (auto) 7.2 Absolute Nucleated RBC 0.000 Nucleated RBC % (auto) 0.0 Anion Gap 11 L Estim Creat Clear Calc 44.1 Estimated GFR 56 Random Glucose 152 H Lactic Acid 2.2 H* Lactic Acid F/U @ 2Hr Calcium 9.5 D Magnesium 2.2 Total Bilirubin 0.4 Direct Bilirubin 0.2 AST 21 ALT 10 Alkaline Phosphatase 71 Total Creatine Kinase 32 Total Protein 6.1 L Albumin 3.7 Urine Color BROWN Urine Appearance Cloudy Urine pH >= 9.0 Ur Specific [place] <= 1.005 Urine Protein 300 (3+) H Urine Glucose (UA) Negative Urine Ketones Negative Urine Blood Large (3+) H Urine Nitrite Positive H Ur Leukocyte Esterase Small (1+) H Urine RBC >20 H Urine WBC 6-10 H Ur Squamous Epith Cells 6-10 Other Crystals Present Urine Bacteria 2+ Hyaline Casts 6-10 Granular Casts Present Influenza Type A (PCR) NEGATIVE Influenza Type B (PCR) NEGATIVE RSV RNA Qual (PCR) NEGATIVE SARS-CoV-2 RNA (RT-PCR) NEGATIVE 12/25/24 12/26/24 16:23 04:24 MCV MCH MCHC RDW Plt Count MPV Immature Gran % (Auto) Neut % (Auto) Lymph % (Auto) Saline % (Auto) Eos % (Auto) Baso % (Auto) Lymph # (Auto) Saline # (Auto) Eos # (Auto) Baso # (Auto) Abs Immat Gran (auto) Absolute Neuts (auto) Absolute Nucleated RBC Nucleated RBC % (auto) Anion Gap 12 Estim Creat Clear Calc 53.7 Estimated GFR > 60 Random Glucose 118 H Lactic Acid Lactic Acid F/U @ 2Hr 1.9 Calcium 9.1 Magnesium Total Bilirubin Direct Bilirubin AST ALT Alkaline Phosphatase Total Creatine Kinase Total Protein Albumin Urine Color Urine Appearance Urine pH Ur Specific [place] Urine Protein Urine Glucose (UA) Urine Ketones Urine Blood Urine Nitrite Ur Leukocyte Esterase Urine RBC Urine WBC Ur Squamous Epith Cells Other Crystals Urine Bacteria Hyaline Casts Granular Casts Influenza Type A (PCR) Influenza Type B (PCR) RSV RNA Qual (PCR) SARS-CoV-2 RNA (RT-PCR) Microbiology Microbiology Results: Microbiology 12/25/24 Unknown Urine Culture - Final Urine Catheterized - Eason Catheter Assessment and Plan (1) Memory loss or impairment: Status: Acute Plan This is a 84-year-old female with history of underlying cognitive impairment, HLD, HTN, hypothyroidism, CKD3 recent admission to [facility] [place] for mechanical fall found to have L1 fracture and incidental finding of AAA status post EVAR, seen in the emergency department 12/22 for dizziness and diagnosed with a UTI and hypokalemia who returns with increasing generalized weakness and confusion found to have UTI UTI due to eason catheter Urine culture suggestive of contamination, will re-collect as clean catch Continue IV ceftriaxone Blood cultures pending urinary retention eason out for voiding trial bladder scan q shift; straight cath prn Toxic metabolic encephalopathy on a background of dementia Seems to be gradually declining over the past several months, may be compounded by above UTI uncontrolled HTN bp meds d/c during hospitalization at [facility] unclear reason lisinopril resumed, BP still elevated, increased to 10 mg also previously on triamterene/hydrochlorothiazide ? d/c when started on lasix p.r.n. IV hydralazine as needed for blood pressure greater than 180 systolic will attempt to review records from [facility] Hypokalemia Likely due to Lasix (reportedly taking for leg edema not CHF) s/p IV K; K remains low, continue po replacement Trend BMP Acute lactic acidosis Does not meet sepsis criteria Question due to dehydration resolved with IVF cognitive impairment/dementia seems to have had significant decline over the past few months; has been in and out of hospital/rehab not on baseline meds [place] [facility] [place] to [place]ady[place] leg edema resume po lasix in AM for leg edema continue po k replacement keep legs elevated continue compression stockings Hypothyroidism Continue Synthroid CKD3 at baseline AAA s/p EVAR at [facility] ASA, statin willard non-compliant with cpap CPAP obesity class I bmi 30.0 weight loss encouraged DVT prophylaxis-heparin Code status-DNR/DNI dispo - probable STR Patient requires ongoing inpatient stay for management of encephalopathy, UTI, hypokalemia requiring IV potassium replacement, IV antibiotics Quality Stroke Does the patient have a stroke diagnosis?: No VTE Prior VTE?: No VTE Risk Level:: Medical - moderate - high VTE Device Contraindication: N/A - Device Ordered VTE Drug Contraindication: N/A - Med Ordered
--- NOTE | 2024-12-26 13:18 | P.CDIM_ITS ---
PROVIDER RESPONSE TEXT: To clarify, the appropriate diagnosis supported by the clinical indicators: Yes, UTI is related to / associated with / due to Shell catheter QUERY TEXT: PHYSICIAN'S DOCUMENTATION REQUEST Date of Query: 12/26/2024 08:48 AM EDT Patient Name: Angle Cook Admit Date: 12/25/2024 Dear [place] MARTINEZ, A review of the medical record indicates additional documentation may be needed. Please review below and update the documentation accordingly. Documentation includes the conditions of UTI and Shell catheter. Clinical Indicators: Urinalysis consistent with UTI, Started IV ceftriaxone Shell catheter was placed on 12/22/24 for urinary retention Shell out for voiding trial straight cath prn Please clarify the relationship between these conditions: Yes, UTI is related to / associated with / due to Shell catheter No, UTI is not related to / associated with / due to Shell catheter Other (explain) Clinically unable to determine (explain) Thank you, Erika Hernandez RN Use of terms such as suspected, likely, concern for, or probable (associated with a specific diagnosis that is being evaluated, monitored, or treated as if it exists) are acceptable and can be coded in the inpatient setting, when documented at the time of discharge. Please use your independent medical judgment in providing your response. THIS QUERY IS PART OF THE PERMANENT MEDICAL RECORD
[2024-12-26 19:02] LABS: Appearance Urine Cloudy; Glucose Urine UA Negative (Negative); PH 7.5 (5.0-9.0); Specific Gravity - Urine 1.015 (1.005-1.025); UMIC TRIGGER UACC YES
[2024-12-26 19:05] LABS: UACC Culture Trigger YES
[2024-12-27 02:50] VITALS: BP 158/63; PULSE 52; RESP 18; TEMP 36.2; O2SAT 96
[2024-12-27 07:36] VITALS: BP 128/88; PULSE 51; RESP 20; TEMP 36.7; O2SAT 99
[2024-12-27 08:20] LABS: Anion Gap 10 (12-20); Blood Urea Nitrogen 12 mg/dL (9-16); Calcium 9.4 mg/dL (8.4-10.2); Carbon Dioxide 28 mmol/L (22-29); Chloride 104 mmol/L (96-108); Creatinine Clr Calc Pharmacy 54.4; Estimated Glomerular Filt Rate > 60; Potassium 3.3 mmol/L (3.3-5.1); Sodium 139 mmol/L (135-145)
--- NOTE | 2024-12-27 10:40 | HO.PM.IMPN ---
Subjective Subjective Date of Service: 12/27/24 Interval History: seen and examined this morning follow up for UTI, hypokalemia Did not sleep well overnight, no other specific complaints this morning. limited historian due to dementia Physical Exam Vital Signs: Vital Signs: Last Vital Signs Temp 98.0 F 12/27/24 07:36 Pulse 51 12/27/24 07:36 Resp 20 12/27/24 07:36 BP 128/88 12/27/24 07:36 Pulse Ox 99 12/27/24 07:36 O2 Del Method Room Air 12/27/24 07:36 BMI result Body Mass Index 30.0 Const: Other: sleepy but easily arousable to verbal stimuli Nutritional Appearance: average body habitus and overweight Orientation/consciousness: oriented to person Resp: Effort & Inspection: normal respiratory effort, able to speak in complete sentences, no respiratory distress and no use of accessory muscles Auscultation: clear to auscultation bilaterally Cardio: Rate: regular rate GI: Inspection: No distended Palpation (GI): Soft to palpation and nontender Neuro: Other: grossly non-focal General: oriented to person and moves all extremities Extrem: Other: b/l lower extremity edema; b/l legs sensitive to touch Objective Data Active Medications Acetaminophen (Acetaminophen 325 Mg Tablet) 650 mg PO Q6H PRN PRN Reason: Pain, Mild 1-3,fever,headache Last Admin: 12/25/24 17:05 Dose: 650 mg Documented By: JUAN FRANCISCO Aspirin (Aspirin 81 Mg Tab.Chew) 81 mg PO DAILY [facility] Last Admin: 12/26/24 08:45 Dose: 81 mg Documented By: BARON Atorvastatin Calcium (Atorvastatin Calcium 20 Mg Tablet) 20 mg PO BEDTIME [facility] Last Admin: 12/26/24 21:40 Dose: 20 mg Documented By: LISE Calcium Carbonate (Calcium Carbonate 750 Mg Tab.Chew) 750 mg PO Q4H PRN PRN Reason: Heartburn Ceftriaxone Sodium (Ceftriaxone Sodium 1 Gm Vial) 1 gm IVPUSH Q24H [facility] Last Admin: 12/26/24 13:32 Dose: 1 gm Documented By: YUSEF Docusate Sodium (Docusate Sodium 100 Mg Capsule) 200 mg PO BID [facility] Last Admin: 12/26/24 21:39 Dose: 200 mg Documented By: LISE Furosemide (Furosemide 20 Mg Tablet) 30 mg PO DAILY [facility]; Protocol Heparin Sodium (Porcine) (Heparin Sodium,Porcine 5,000 Unit/Ml Vial) 5,000 unit SUBCUT Q12H [facility] Last Admin: 12/27/24 04:42 Dose: Not Given Documented By: LISE Non-Admin Reason: Patient Refused Hydralazine HCl (Hydralazine Hcl 20 Mg/Ml Vial) 5 mg IVPUSH Q6H PRN; Protocol PRN Reason: SBP >180 Levothyroxine Sodium (Levothyroxine Sodium 125 Mcg Tablet) 125 mcg PO DAILY [facility] Last Admin: 12/26/24 08:45 Dose: 125 mcg Documented By: BARON Lisinopril (Lisinopril 10 Mg Tablet) 10 mg PO DAILY [facility]; Protocol Lorazepam (Lorazepam 0.5 Mg Tablet) 0.5 mg PO BEDTIME PRN PRN Reason: anxiety/agitation Last Admin: 12/26/24 21:40 Dose: 0.5 mg Documented By: LISE Magnesium Hydroxide (Milk Of Magnesia 30 Ml Oral.Susp) 30 ml PO DAILY PRN PRN Reason: Constipation Melatonin (Melatonin 3 Mg Tablet) 6 mg PO BEDTIME PRN PRN Reason: Insomnia Last Admin: 12/26/24 21:40 Dose: 6 mg Documented By: LISE Oxycodone HCl (Oxycodone Hcl Immed Release 5 Mg Tablet) 2.5 mg PO Q6H PRN PRN Reason: Pain, Moderate(Pain Scale 4-6) Last Admin: 12/26/24 02:45 Dose: 2.5 mg Documented By: SOHAM Polyethylene Glycol (Polyethylene Glycol 3350 17 Gm Powd.Pack) 17 gm PO DAILY [facility] Last Admin: 12/26/24 13:32 Dose: 17 gm Documented By: YUSEF Potassium Chloride (Potassium Chloride Er 20 Meq Tab.Er.Prt) 20 meq PO BID [facility] Last Admin: 12/26/24 21:40 Dose: 20 meq Documented By: LISE Senna (Sennosides 8.6 Mg Tablet) 8.6 mg PO BEDTIME [facility] Last Admin: 12/26/24 21:40 Dose: 8.6 mg Documented By: LISE Sodium Chloride (0.9 % Sodium Chloride Flush 3 Ml Syringe) 3 ml IVFLUSH QSHIFT [facility] Last Admin: 12/26/24 21:49 Dose: 3 ml Documented By: LISE Labs 12/25/24 13:46 12/27/24 07:44 Labs: Laboratory Results - last 24 hr 12/26/24 12/27/24 18:53 07:44 Hold Purple Top SEE NOTE Anion Gap 10 L Estim Creat Clear Calc 54.4 Estimated GFR > 60 Random Glucose 100 Calcium 9.4 Urine Color Yellow Urine Appearance Cloudy Urine pH 7.5 Ur Specific [place] 1.015 Urine Protein 30 (1+) H Urine Glucose (UA) Negative Urine Ketones Negative Urine Blood Large (3+) H Urine Nitrite Negative Ur Leukocyte Esterase Large (3+) H Urine RBC >20 H Urine WBC >50 H Ur Squamous Epith Cells 11-20 Urine Bacteria None Seen Hyaline Casts 0-2 Microbiology Microbiology Results: Microbiology 12/26/24 Unknown Urine Culture - Preliminary Urine clean catch - Clean Catch Midstream Culture too young to evaluate. 12/25/24 13:46 Blood Culture - Preliminary Blood - Venous No growth after 24 hours. 12/25/24 13:46 Blood Culture - Preliminary Blood - Venous No growth after 24 hours. 12/25/24 Unknown Urine Culture - Final Urine Catheterized - Eason Catheter Assessment and Plan (1) Acute UTI: Status: Acute (2) Hypokalemia: Status: Acute Plan This is a 84-year-old female with history of underlying cognitive impairment, HLD, HTN, hypothyroidism, CKD3 recent admission to [facility] [place] for mechanical fall found to have L1 fracture and incidental finding of AAA status post EVAR, seen in the emergency department 12/22 for dizziness and diagnosed with a UTI and hypokalemia who returns with increasing generalized weakness and confusion found to have UTI UTI due to eason catheter Urine culture suggestive of contamination, will re-collect as clean catch - repeat culture pending Continue IV ceftriaxone Blood cultures negative to date urinary retention eason out for voiding trial Toxic metabolic encephalopathy on a background of dementia Seems to be gradually declining over the past several months, may be compounded by above UTI uncontrolled HTN bp meds d/c during hospitalization at [facility] [place] lisinopril resumed, BP still elevated, increased to 10 mg p.r.n. IV hydralazine as needed for blood pressure greater than 180 systolic Hypokalemia Likely due to Lasix (reportedly taking for leg edema not CHF) improved with replacement Acute lactic acidosis Does not meet sepsis criteria Question due to dehydration resolved with IVF cognitive impairment/dementia seems to have had significant decline over the past few months; has been in and out of hospital/rehab not on baseline meds donepezil d/c at [facility] [place] ?due to bradycardia leg edema resume po lasix in AM for leg edema continue po k replacement keep legs elevated continue compression stockings Hypothyroidism Continue Synthroid CKD3 at baseline AAA s/p EVAR at [facility] [place] ASA, statin willard non-compliant with cpap CPAP obesity class I bmi 30.0 weight loss encouraged DVT prophylaxis-heparin Code status-DNR/DNI dispo - PT rec STR Patient requires ongoing inpatient stay for management of UTI requiring IV antibiotics Quality Stroke Does the patient have a stroke diagnosis?: No VTE Prior VTE?: No VTE Risk Level:: Medical - moderate - high VTE Device Contraindication: N/A - Device Ordered VTE Drug Contraindication: N/A - Med Ordered
[2024-12-27] MEDS: 0.9 % Sodium Chloride Flush 3 ML SYRINGE IVFLUSH ×3 (10:47→20:28)
[2024-12-27 11:06] VITALS: BP 169/74
[2024-12-27 12:00] VITALS: BP 120/68; PULSE 58; RESP 17; TEMP 36.2; O2SAT 97
--- NOTE | 2024-12-27 13:03 | MHC.CM.PN ---
CM met with Patient and her Daughter/HCP/Salma at bedside. Salma explains that it has been very difficult managing/providing 24/7 care at home. Salma's goal is for STR into likely LTC. [facility] is first choice; [facility] and [facility] will not be considered.[facility] initiated the SNF search at Salma's request and will continue to follow.After STR, Patient would not qualify for [employer] and would be private pay.
[2024-12-27 15:56] VITALS: BP 149/53; PULSE 50; RESP 17; TEMP 36.1; O2SAT 99
[2024-12-27 20:00] VITALS: BP 142/62; PULSE 50; RESP 18; TEMP 36.1; O2SAT 98
[2024-12-27] MEDS: Potassium Chloride ER 20 MEQ TAB.ER.PRT PO (20:27)
[2024-12-27] MEDS: oxyCODONE HCl Immed Release 5 MG TABLET 2.5 MG PO (20:27)
[2024-12-28] VITALS: BP 116/66; PULSE 61; RESP 18; TEMP 36.4; O2SAT 98
[2024-12-28 04:00] VITALS: BP 158/62; PULSE 54; RESP 18; TEMP 36.4; O2SAT 98
[2024-12-28 07:40] VITALS: BP 159/56; PULSE 52; RESP 17; TEMP 36.4; O2SAT 99
[2024-12-28] MEDS: 0.9 % Sodium Chloride Flush 3 ML SYRINGE IVFLUSH ×3 (07:45→20:29)
[2024-12-28] MEDS: oxyCODONE HCl Immed Release 5 MG TABLET 2.5 MG PO ×2 (08:10→20:28)
[2024-12-28 10:27] LABS: Anion Gap 12 (12-20); Blood Urea Nitrogen 12 mg/dL (9-16); Calcium 9.7 mg/dL (8.4-10.2); Carbon Dioxide 29 mmol/L (22-29); Chloride 106 mmol/L (96-108); Creatinine Clr Calc Pharmacy 50.5; Estimated Glomerular Filt Rate > 60; Potassium 3.4 mmol/L (3.3-5.1); Sodium 144 mmol/L (135-145)
--- NOTE | 2024-12-28 11:24 | HO.PM.IMPN ---
Subjective Subjective Date of Service: 12/28/24 Interval History: seen and examined this morning follow up encephalopathy, UTI stayed in recliner overnight, did not sleep well refusing to take meds this am Review of Systems Review of Systems: Yes all other systems are reviewed and are negative Constitutional Constitutional: Denies chills and Denies fever(s) Physical Exam Vital Signs: Vital Signs: Last Vital Signs Temp 97.6 F 12/28/24 07:40 Pulse 52 12/28/24 07:40 Resp 17 12/28/24 07:40 BP 159/56 H 12/28/24 07:40 Pulse Ox 99 12/28/24 07:40 O2 Del Method Room Air 12/28/24 07:40 BMI result Body Mass Index 30.0 Const: General: alert and awake Nutritional Appearance: average body habitus and overweight Orientation/consciousness: oriented to person Resp: Effort & Inspection: normal respiratory effort, able to speak in complete sentences, no respiratory distress and no use of accessory muscles Auscultation: clear to auscultation bilaterally Cardio: Rate: regular rate GI: Inspection: No distended Palpation (GI): Soft to palpation and nontender Neuro: Other: grossly non-focal General: oriented to person and moves all extremities Extrem: Other: b/l lower extremity edema; b/l legs sensitive to touch Objective Data Active Medications Acetaminophen (Acetaminophen 325 Mg Tablet) 650 mg PO Q6H PRN PRN Reason: Pain, Mild 1-3,fever,headache Last Admin: 12/25/24 17:05 Dose: 650 mg Documented By: JUAN FRANCISCO Aspirin (Aspirin 81 Mg Tab.Chew) 81 mg PO DAILY [facility] Last Admin: 12/28/24 07:44 Dose: 81 mg Documented By: YUSEF Atorvastatin Calcium (Atorvastatin Calcium 20 Mg Tablet) 20 mg PO BEDTIME [facility] Last Admin: 12/27/24 20:27 Dose: 20 mg Documented By: LISE Calcium Carbonate (Calcium Carbonate 750 Mg Tab.Chew) 750 mg PO Q4H PRN PRN Reason: Heartburn Ceftriaxone Sodium (Ceftriaxone Sodium 1 Gm Vial) 1 gm IVPUSH Q24H [facility] Last Admin: 12/27/24 15:52 Dose: 1 gm Documented By: YUSEF Docusate Sodium (Docusate Sodium 100 Mg Capsule) 200 mg PO BID [facility] Last Admin: 12/28/24 07:51 Dose: Not Given Documented By: YUSEF Non-Admin Reason: cant be crushed Furosemide (Furosemide 20 Mg Tablet) 30 mg PO DAILY [facility]; Protocol Last Admin: 12/28/24 07:44 Dose: 30 mg Documented By: YUSEF Heparin Sodium (Porcine) (Heparin Sodium,Porcine 5,000 Unit/Ml Vial) 5,000 unit SUBCUT Q12H [facility] Last Admin: 12/28/24 04:16 Dose: Not Given Documented By: ALBINA Non-Admin Reason: Patient Refused Hydralazine HCl (Hydralazine Hcl 20 Mg/Ml Vial) 5 mg IVPUSH Q6H PRN; Protocol PRN Reason: SBP >180 Levothyroxine Sodium (Levothyroxine Sodium 125 Mcg Tablet) 125 mcg PO DAILY [facility] Last Admin: 12/28/24 07:44 Dose: 125 mcg Documented By: YUSEF Lisinopril (Lisinopril 10 Mg Tablet) 10 mg PO DAILY [facility]; Protocol Last Admin: 12/28/24 07:45 Dose: 10 mg Documented By: YUSEF Lorazepam (Lorazepam 0.5 Mg Tablet) 0.5 mg PO BEDTIME PRN On Hold: 12/28/24 09:33 PRN Reason: anxiety/agitation Last Admin: 12/26/24 21:40 Dose: 0.5 mg Documented By: LISE Magnesium Hydroxide (Milk Of Magnesia 30 Ml Oral.Susp) 30 ml PO DAILY PRN PRN Reason: Constipation Melatonin (Melatonin 3 Mg Tablet) 6 mg PO BEDTIME PRN PRN Reason: Insomnia Last Admin: 12/27/24 20:27 Dose: 6 mg Documented By: LISE Oxycodone HCl (Oxycodone Hcl Immed Release 5 Mg Tablet) 2.5 mg PO Q6H PRN PRN Reason: Pain, Moderate(Pain Scale 4-6) Last Admin: 12/28/24 08:10 Dose: 2.5 mg Documented By: YUSEF Polyethylene Glycol (Polyethylene Glycol 3350 17 Gm Powd.Pack) 17 gm PO DAILY [facility] Last Admin: 12/28/24 07:44 Dose: 17 gm Documented By: YUSEF Potassium Chloride (Potassium Chloride Er 20 Meq Tab.Er.Prt) 20 meq PO BID [facility] Last Admin: 12/28/24 07:52 Dose: Not Given Documented By: YUSEF Non-Admin Reason: cant be crushed Risperidone (Risperidone 0.25 Mg Tablet) 0.25 mg PO BEDTIME [facility] Senna (Sennosides 8.6 Mg Tablet) 8.6 mg PO BEDTIME [facility] Last Admin: 12/27/24 20:27 Dose: 8.6 mg Documented By: LISE Sodium Chloride (0.9 % Sodium Chloride Flush 3 Ml Syringe) 3 ml IVFLUSH QSHIFT [facility] Last Admin: 12/28/24 07:45 Dose: 3 ml Documented By: YUSEF Labs 12/25/24 13:46 12/28/24 09:30 Labs: Laboratory Results - last 24 hr 12/28/24 09:30 Hold Purple Top SEE NOTE Anion Gap 12 Estim Creat Clear Calc 50.5 Estimated GFR > 60 Random Glucose 117 H Calcium 9.7 Microbiology Microbiology Results: Microbiology 12/25/24 13:46 Blood Culture - Preliminary Blood - Venous No growth after 48 hours. 12/25/24 13:46 Blood Culture - Preliminary Blood - Venous No growth after 48 hours. 12/26/24 Unknown Urine Culture - Preliminary Urine clean catch - Clean Catch Midstream Culture too young to evaluate. Assessment and Plan (1) Memory loss or impairment: Status: Acute (2) Acute UTI: Status: Acute (3) Hypokalemia: Status: Acute Plan This is a 84-year-old female with history of underlying cognitive impairment, HLD, HTN, hypothyroidism, CKD3 recent admission to [facility] [place] for mechanical fall found to have L1 fracture and incidental finding of AAA status post EVAR, seen in the emergency department 12/22 for dizziness and diagnosed with a UTI and hypokalemia who returns with increasing generalized weakness and confusion found to have UTI UTI due to eason catheter Urine culture suggestive of contamination, will re-collect as clean catch - repeat culture pending Continue IV ceftriaxone Blood cultures negative to date urinary retention eason out - passed voiding trial voiding without difficulty Toxic metabolic encephalopathy on a background of dementia Seems to be gradually declining over the past several months, may be compounded by above UTI psych evel for med adjustment - has been getting prn ativan as outpatient which doesn't appear to be effective start low dose risperidone at bedtime uncontrolled HTN bp meds d/c during hospitalization at [facility] bp improving with lisinopril p.r.n. IV hydralazine as needed for blood pressure greater than 180 systolic Hypokalemia Likely due to Lasix (reportedly taking for leg edema not CHF) improved with replacement continue po replacement Acute lactic acidosis Does not meet sepsis criteria Question due to dehydration resolved with IVF cognitive impairment/dementia seems to have had significant decline over the past few months; has been in and out of hospital/rehab not on baseline meds [place] [facility] [place]due to bradycardia leg edema resume po lasix in AM for leg edema continue po k replacement keep legs elevated continue compression stockings Hypothyroidism Continue Synthroid CKD3 at baseline AAA s/p EVAR at [facility] ASA, statin willard non-compliant with cpap CPAP obesity class I bmi 30.0 weight loss encouraged DVT prophylaxis-heparin Code status-DNR/DNI dispo -plan for STR Patient requires ongoing inpatient stay for management of UTI requiring IV antibiotics Quality Stroke Does the patient have a stroke diagnosis?: No VTE Prior VTE?: No VTE Risk Level:: Medical - moderate - high VTE Device Contraindication: N/A - Device Ordered VTE Drug Contraindication: N/A - Med Ordered
[2024-12-28 11:40] VITALS: BP 145/53; PULSE 68; RESP 17; TEMP 36.2; O2SAT 100
--- NOTE | 2024-12-28 15:21 | P.CNPS_ITS ---
History of Present Illness Date of Service: 12/28/24 Chief Complaint: AMS Reason for Consult: Dementia with agitation Requesting physician: [place] Keith Discussed with referring provider: Yes Sources of Information: patient interviewed and chart reviewed Additional Sources of Information: DaughterHelene Gale in person HPI Narrative: Per medical H&P note: Patient is 84-year-old female with history of underlying cognitive impairment, HLD, HTN, hypothyroidism, CKD3 recent admission to [facility] for mechanical fall found to have L1 fracture and incidental finding of AAA status post EVAR, seen in the emergency department 12/22 for dizziness and diagnosed with a UTI and hypokalemia who returns with increasing generalized weakness and confusion found to have UTI Past Psychiatric History: Denies psychiatric hx. No prior dx with depression, anxiety or dementia Report recently being depressed, irritable and agitated lately, increased after a fall back in September. Medical Evaluation Reviewed: Yes Review of Systems Review of Systems Yes all other systems are reviewed and are negative Constitutional: Denies chills and Denies fever(s) Cardiovascular: Denies chest pain Respiratory: Denies cough PMFSH Medical History Fracture lumbar vertebra-closed Primary osteoarthritis of left hip Chronic kidney disease, stage III (moderate) Vitamin B12 deficiency (non anemic) Memory loss or impairment Obesity (BMI 30-39.9) Obstructive sleep apnea Acquired hypothyroidism Benign essential hypertension Pure hypercholesterolemia Vitamin D deficiency Hypothyroidism Hyperlipidemia Diabetes mellitus Hypertension Surgical History S/P AAA (abdominal aortic aneurysm) repair History of biopsy History of tonsillectomy History of laparoscopic cholecystectomy Family History: Patient has supportive family. Two daughters, when children are supportive. Family members take turn to provide 24- hour care for her Social History: She retired. Stay home with family members. Substance History: Denies Trauma History: Not discussed Diagnostics Vital Signs (24Hr): Vital Signs - 24 hr 12/27/24 15:56 12/27/24 20:00 12/28/24 00:00 Temperature 96.9 F 97 F 97.5 F Pulse Rate 50 50 61 Respiratory Rate 17 18 18 Blood Pressure 149/53 H 142/62 H 116/66 Pulse Oximetry 99 98 98 Oxygen Delivery Method Room Air Room Air Room Air 12/28/24 04:00 12/28/24 07:40 12/28/24 11:40 Temperature 97.5 F 97.6 F 97.2 F Pulse Rate 54 52 68 Respiratory Rate 18 17 17 Blood Pressure 158/62 H 159/56 H 145/53 H Pulse Oximetry 98 99 100 Oxygen Delivery Method Room Air Room Air Room Air BMI result Body Mass Index 30.0 Labs 12/25/24 13:46 12/28/24 09:30 Labs: Laboratory Results - last 48 hr 12/26/24 12/27/24 12/28/24 18:53 07:44 09:30 Hold Purple Top SEE NOTE SEE NOTE Sodium 139 144 Potassium 3.3 3.4 Chloride 104 106 Carbon Dioxide 28 29 Anion Gap 10 L 12 BUN 12 12 Creatinine 0.77 0.83 Estim Creat Clear Calc 54.4 50.5 Estimated GFR > 60 > 60 Random Glucose 100 117 H Calcium 9.4 9.7 Urine Color Yellow Urine Appearance Cloudy Urine pH 7.5 Ur Specific [place] 1.015 Urine Protein 30 (1+) H Urine Glucose (UA) Negative Urine Ketones Negative Urine Blood Large (3+) H Urine Nitrite Negative Ur Leukocyte Esterase Large (3+) H Urine RBC >20 H Urine WBC >50 H Ur Squamous Epith Cells 11-20 Urine Bacteria None Seen Hyaline Casts 0-2 Mental Status Exam Mental Status Exam Narrative: Patient is awake alert. She oriented to her date of , and her age. Not to current day, month or year. Some cognitive impair. Appropriate her age. Can be irritable but mostly pleasant upon approach. Denies SI/SIB/HI/AVH. Appears to be depressed, anxious and forgetful. She is brighter and happier when seeing her daughter came in to visit. Thought content is can I go home? . Thought processes somewhat delayed. No hearing issues. Medications Medications Current Medications Acetaminophen (Acetaminophen 325 Mg Tablet) 650 mg PO Q6H PRN PRN Reason: Pain, Mild 1-3,fever,headache Last Admin: 12/25/24 17:05 Dose: 650 mg Aspirin (Aspirin 81 Mg Tab.Chew) 81 mg PO DAILY [facility] Last Admin: 12/28/24 07:44 Dose: 81 mg Atorvastatin Calcium (Atorvastatin Calcium 20 Mg Tablet) 20 mg PO BEDTIME [facility] Last Admin: 12/27/24 20:27 Dose: 20 mg Calcium Carbonate (Calcium Carbonate 750 Mg Tab.Chew) 750 mg PO Q4H PRN PRN Reason: Heartburn Ceftriaxone Sodium (Ceftriaxone Sodium 1 Gm Vial) 1 gm IVPUSH Q24H [facility] Last Admin: 12/27/24 15:52 Dose: 1 gm Docusate Sodium (Docusate Sodium 100 Mg Capsule) 200 mg PO BID [facility] Last Admin: 12/28/24 07:51 Dose: Not Given Duloxetine HCl (Duloxetine Hcl 20 Mg Capsule.Dr) 20 mg PO DAILY [facility] Furosemide (Furosemide 20 Mg Tablet) 30 mg PO DAILY [facility]; Protocol Last Admin: 12/28/24 07:44 Dose: 30 mg Heparin Sodium (Porcine) (Heparin Sodium,Porcine 5,000 Unit/Ml Vial) 5,000 unit SUBCUT Q12H [facility] Last Admin: 12/28/24 04:16 Dose: Not Given Hydralazine HCl (Hydralazine Hcl 20 Mg/Ml Vial) 5 mg IVPUSH Q6H PRN; Protocol PRN Reason: SBP >180 Levothyroxine Sodium (Levothyroxine Sodium 125 Mcg Tablet) 125 mcg PO DAILY [facility] Last Admin: 12/28/24 07:44 Dose: 125 mcg Lisinopril (Lisinopril 10 Mg Tablet) 10 mg PO DAILY [facility]; Protocol Last Admin: 12/28/24 07:45 Dose: 10 mg Lorazepam (Lorazepam 0.5 Mg Tablet) 0.5 mg PO BEDTIME PRN On Hold: 12/28/24 09:33 PRN Reason: anxiety/agitation Last Admin: 12/26/24 21:40 Dose: 0.5 mg Magnesium Hydroxide (Milk Of Magnesia 30 Ml Oral.Susp) 30 ml PO DAILY PRN PRN Reason: Constipation Melatonin (Melatonin 3 Mg Tablet) 6 mg PO BEDTIME PRN PRN Reason: Insomnia Last Admin: 12/27/24 20:27 Dose: 6 mg Oxycodone HCl (Oxycodone Hcl Immed Release 5 Mg Tablet) 2.5 mg PO Q6H PRN PRN Reason: Pain, Moderate(Pain Scale 4-6) Last Admin: 12/28/24 08:10 Dose: 2.5 mg Polyethylene Glycol (Polyethylene Glycol 3350 17 Gm Powd.Pack) 17 gm PO DAILY [facility] Last Admin: 12/28/24 07:44 Dose: 17 gm Potassium Chloride (Potassium Chloride Er 20 Meq Tab.Er.Prt) 20 meq PO BID [facility] Last Admin: 12/28/24 07:52 Dose: Not Given Risperidone (Risperidone 0.25 Mg Tablet) 0.25 mg PO BID [facility] Senna (Sennosides 8.6 Mg Tablet) 8.6 mg PO BEDTIME [facility] Last Admin: 12/27/24 20:27 Dose: 8.6 mg Sodium Chloride (0.9 % Sodium Chloride Flush 3 Ml Syringe) 3 ml IVFLUSH QSHIFT [facility] Last Admin: 12/28/24 07:45 Dose: 3 ml Allergies Allergies Allergy/AdvReac Type Severity Reaction Status Date / Time oxycodone (Percocet) Allergy Unknown Unknown Verified 12/25/24 12:03 penicillin V Allergy Unknown Unknown Verified 12/25/24 12:03 amoxicillin Allergy Unknown Verified 12/25/24 12:07 Assessment & Plan Assessment & Plan (1) Mood changes: Status: Acute Code(s): R45.86 - Emotional lability Plan HPI: Patient is 84-year-old female with history of underlying cognitive impairment, HLD, HTN, hypothyroidism, CKD3 recent admission to [facility] for mechanical fall found to have L1 fracture and incidental finding of AAA status post EVAR, seen in the emergency department 12/22 for dizziness and diagnosed with a UTI and hypokalemia who returns with increasing generalized weakness and confusion found to have UTI Patient has no prior history of psychiatric, no prior depression history. Not officially diagnosed with dementia. However, Shahla-her daughter, present during consult, reports that patient lately feeling more depressed, with some cognitive decline and mood change lately. She is more irritable agitated which could be related to medical issue that she has been going through the past 2 3 months. Shahla reports that her mom fell and broke her back follow incident fighting of AAA status. Prior to broken her back, she has some mild cognitively declined, but was not irritable agitated like she is now. Mom always love to be home she does not want to stay anywhere else besides home. Patient refused medication this early today with reason that she was not sure what they are giving to her. She will agreed to take medication as Shahla assure her that the medication list was reviewed with the nurses and doctors and that also was medication that she take it at home with some exception of new medication we are discussing now. Patient is receptive to take medication by mouth. Plan: Discussed with patient and Shahla. They both agree to start low-dose of the duloxetine 20 mg daily for depression/off-label for pain. Risperidone also start low-dose at 0.25 mg twice a day for agitation. Shahla is familiar with those medication, understand the indications, and possible side effects as she is also is currently taking the for herself at home. At this point, Ativan can be held. Per daughter 0.5 mg once a day PRN for her, maybe not helpful. Case discussed with nurse on duty and referring provider. Patient agreed to take medication by mouth. Continue to support patient emotionally during this time at is tough for her to be away from home, and do with ongoing medical issues which also affect her mood. Total time managing care of this patient today ____ minutes. Patient educated on: diagnosis, medication risk/benefits and therapeutic strategies Informed Consent: understands
[2024-12-28 16:00] VITALS: BP 161/61; PULSE 50; RESP 18; TEMP 36.7; O2SAT 99
[2024-12-28 19:58] VITALS: BP 151/80; PULSE 72; RESP 17; TEMP 36.1; O2SAT 98
[2024-12-28] MEDS: Potassium Chloride ER 20 MEQ TAB.ER.PRT PO (20:29)
[2024-12-29] VITALS (7 sets, daily range): BP systolic 121–176; BP diastolic 53–86; PULSE 57–86; RESP 16–18; TEMP 36–36.9; O2SAT 97–99
[2024-12-29] MEDS: Potassium Chloride ER 20 MEQ TAB.ER.PRT PO (07:45)
[2024-12-29] MEDS: 0.9 % Sodium Chloride Flush 3 ML SYRINGE IVFLUSH ×3 (08:48→19:57)
--- NOTE | 2024-12-29 11:05 | P.PNIM_ITS ---
Subjective Subjective Date of Service: 12/29/24 Interval History: seen and examined this morning follow up encephalopathy, UTI stayed in recliner overnight, did not sleep well Review of Systems Review of Systems: Yes all other systems are reviewed and are negative Constitutional Constitutional: Denies chills and Denies fever(s) Physical Exam 2 Vital Signs: Vital Signs: Last Vital Signs Temp 97.4 F 12/29/24 07:36 Pulse 86 12/29/24 07:36 Resp 18 12/29/24 07:36 BP 170/86 H 12/29/24 07:36 Pulse Ox 97 12/29/24 07:36 O2 Del Method Room Air 12/29/24 07:36 BMI result Body Mass Index 30.0 Appearing in no acute distress LSCTA heart regular rate rhythm, clear S1, S2 positive bowel sounds, abdomen is soft, nontender neuro patient is confused Objective Data Active Medications Acetaminophen (Acetaminophen 325 Mg Tablet) 650 mg PO Q6H PRN PRN Reason: Pain, Mild 1-3,fever,headache Last Admin: 12/29/24 01:56 Dose: 650 mg Documented By: FANTA Aspirin (Aspirin 81 Mg Tab.Chew) 81 mg PO DAILY [facility] Last Admin: 12/29/24 07:44 Dose: 81 mg Documented By: LORNA Atorvastatin Calcium (Atorvastatin Calcium 20 Mg Tablet) 20 mg PO BEDTIME [facility] Last Admin: 12/28/24 20:28 Dose: 20 mg Documented By: FANTA Calcium Carbonate (Calcium Carbonate 750 Mg Tab.Chew) 750 mg PO Q4H PRN PRN Reason: Heartburn Last Admin: 12/29/24 05:59 Dose: 750 mg Documented By: FANTA Ceftriaxone Sodium (Ceftriaxone Sodium 1 Gm Vial) 1 gm IVPUSH Q24H [facility] Last Admin: 12/28/24 15:30 Dose: 1 gm Documented By: YUSEF Docusate Sodium (Docusate Sodium 100 Mg Capsule) 200 mg PO BID [facility] Last Admin: 12/29/24 07:44 Dose: 200 mg Documented By: LORNA Duloxetine HCl (Duloxetine Hcl 20 Mg Capsule.) 20 mg PO DAILY [facility] Last Admin: 12/29/24 07:44 Dose: 20 mg Documented By: LORNA Furosemide (Furosemide 20 Mg Tablet) 30 mg PO DAILY [facility]; Protocol Last Admin: 12/29/24 07:42 Dose: 30 mg Documented By: LORNA Heparin Sodium (Porcine) (Heparin Sodium,Porcine 5,000 Unit/Ml Vial) 5,000 unit SUBCUT Q12H [facility] Last Admin: 12/29/24 04:19 Dose: Not Given Documented By: FANTA Non-Admin Reason: Patient Refused Hydralazine HCl (Hydralazine Hcl 20 Mg/Ml Vial) 5 mg IVPUSH Q6H PRN; Protocol PRN Reason: SBP >180 Levothyroxine Sodium (Levothyroxine Sodium 125 Mcg Tablet) 125 mcg PO DAILY [facility] Last Admin: 12/29/24 07:44 Dose: 125 mcg Documented By: LORNA Lisinopril (Lisinopril 10 Mg Tablet) 10 mg PO DAILY [facility]; Protocol Last Admin: 12/29/24 07:44 Dose: 10 mg Documented By: LORNA Lorazepam (Lorazepam 0.5 Mg Tablet) 0.5 mg PO BEDTIME PRN On Hold: 12/28/24 09:33 PRN Reason: anxiety/agitation Last Admin: 12/26/24 21:40 Dose: 0.5 mg Documented By: LISE Magnesium Hydroxide (Milk Of Magnesia 30 Ml Oral.Susp) 30 ml PO DAILY PRN PRN Reason: Constipation Melatonin (Melatonin 3 Mg Tablet) 6 mg PO BEDTIME PRN PRN Reason: Insomnia Last Admin: 12/28/24 20:29 Dose: 6 mg Documented By: FANTA Ondansetron HCl (Ondansetron Hcl 4 Mg/2 Ml Vial) 4 mg IVPUSH Q6H PRN PRN Reason: Nausea and Vomiting Last Admin: 12/29/24 05:59 Dose: 4 mg Documented By: FANTA Oxycodone HCl (Oxycodone Hcl Immed Release 5 Mg Tablet) 2.5 mg PO Q6H PRN PRN Reason: Pain, Moderate(Pain Scale 4-6) Last Admin: 12/28/24 20:28 Dose: 2.5 mg Documented By: FANTA Polyethylene Glycol (Polyethylene Glycol 3350 17 Gm Powd.Pack) 17 gm PO DAILY [facility] Last Admin: 12/29/24 07:45 Dose: 17 gm Documented By: LORNA Potassium Chloride (Potassium Chloride Er 20 Meq Tab.Er.Prt) 20 meq PO BID [facility] Last Admin: 12/29/24 07:45 Dose: 20 meq Documented By: LORNA Risperidone (Risperidone 0.25 Mg Tablet) 0.25 mg PO BID [facility] Last Admin: 12/29/24 07:44 Dose: 0.25 mg Documented By: LORNA Senna (Sennosides 8.6 Mg Tablet) 8.6 mg PO BEDTIME [facility] Last Admin: 12/28/24 20:41 Dose: Not Given Documented By: FANTA Non-Admin Reason: Patient Refused Sodium Chloride (0.9 % Sodium Chloride Flush 3 Ml Syringe) 3 ml IVFLUSH QSHIFT [facility] Last Admin: 12/28/24 20:29 Dose: 3 ml Documented By: FANTA Labs 12/25/24 13:46 12/28/24 09:30 Microbiology Microbiology Results: Microbiology 12/26/24 Unknown Urine Culture - Final Urine clean catch - Clean Catch Midstream Staphylococcus haemolyticus Assessment and Plan (1) Memory loss or impairment: Status: Acute (2) Acute UTI: Status: Acute (3) Hypokalemia: Status: Acute Plan 84-year-old female with history of underlying cognitive impairment, HLD, HTN, hypothyroidism, CKD3 recent admission to [facility] for mechanical fall found to have L1 fracture and incidental finding of AAA status post EVAR, seen in the emergency department 12/22 for dizziness and diagnosed with a UTI and hypokalemia who returns with increasing generalized weakness and confusion found to have UTI UTI due to eason catheter Urine culture suggestive of contamination, will re-collect as clean catch - repeat culture pending Continue IV ceftriaxone Blood cultures negative to date urinary retention eason out - passed voiding trial voiding without difficulty Toxic metabolic encephalopathy on a background of dementia Seems to be gradually declining over the past several months, may be compounded by above UTI psych evel for med adjustment - has been getting prn ativan as outpatient which doesn't appear to be effective start low dose risperidone at bedtime uncontrolled HTN bp meds d/c during hospitalization at [facility] bp improving with lisinopril p.r.n. IV hydralazine as needed for blood pressure greater than 180 systolic Hypokalemia Likely due to Lasix (reportedly taking for leg edema not CHF) improved with replacement continue po replacement Acute lactic acidosis Does not meet sepsis criteria Question due to dehydration resolved with IVF cognitive impairment/dementia seems to have had significant decline over the past few months; has been in and out of hospital/rehab not on baseline meds donepezil d/c at [facility] ?due to bradycardia leg edema resume po lasix in AM for leg edema continue po k replacement keep legs elevated continue compression stockings Hypothyroidism Continue Synthroid CKD3 at baseline AAA s/p EVAR at [facility] ASA, statin willard non-compliant with cpap CPAP obesity class I bmi 30.0 weight loss encouraged DVT prophylaxis-heparin Code status-DNR/DNI dispo -plan for STR Patient requires ongoing inpatient stay for management of UTI requiring IV antibiotics Quality Stroke Does the patient have a stroke diagnosis?: No VTE Prior VTE?: No VTE Risk Level:: Medical - moderate - high VTE Device Contraindication: N/A - Device Ordered VTE Drug Contraindication: N/A - Med Ordered
--- NOTE | 2024-12-29 11:12 | MHC.CM.PN ---
EMR REVIEWED, PT IN NEED OF STR TO LTC, PER HOSPITALIST PT REMAINS ON SITTER FOR NOW, PT WILL NEED TO BE OFF SITTER 24-48HRS FOR PLACEMENT, MULTIPLE OFFERS, CM WILL CONT TO FOLLOW DC NEEDS.
--- NOTE | 2024-12-29 13:06 | HO.WOUND ---
Wound Consult: Initial 84yr old?female admitted to [facility] on 12/25/24 - See progress notes and H&P for detailed history.? Wound consult placed for Coccyx.? Patient agreeable to assessment and photo documentation.? Patient stood with assist of sitter and sarasteady without issue. Sacrum - resolving bruising noted to sacrm - no topical interventions needed at this time. Gluteal Fold Etiology: ??MASD Wound Bed: red pink moist intact blanchable tissue Drainage / Odor: None Edges: ? well defined Melisa wound: intact ? No Induration, Fluctuance or Warmth noted Pain: tenderness reported Goals of Treatment: ? Barrier cream to protect from moisture and friction Recommendations: 1. Turn and Reposition every 2 hours and as needed for patient comfort.? Use pillows or wedges to support off loading positions. 2. Off Load all bony prominences with use of pillows and heel boots if needed.? Apply Preventative foams where needed. ? 3. Monitor for incontinence and moisture control, use barrier creams when needed for prevention and treatment. 4. Provide adequate and supplemental nutrition.? 5. Order or Continue low air loss mattress. 6. When applicable maintain blood glucose levels per Providers order. Buttock - Off Load Pressure with Q2 hr turns and use of pillows - Cleanse with PH balance spray or wipes, pat dry. ?Apply thin layer of barrier cream to affected area.? Apply twice daily and Reapply thin layer PRN after each episode of incontinence. Continue Waffle cushion when up to recliner chair. Re-consult wound care Nurse for wound deterioration or wound changes.
[2024-12-29] MEDS: oxyCODONE HCl Immed Release 5 MG TABLET 2.5 MG PO (19:57)
[2024-12-30] MEDS: diazePAM 10 MG/2 ML CARTRIDGE 5 MG IVPUSH (02:17)
--- NOTE | 2024-12-30 03:42 | PC.NURSE ---
Patient aggressive towards staff, hitting, spiting, attempting to throw hot tea at staff, difficult to redirect. MD Kauffman notified. IV push Valium ordered and administered with some effect. Patient calmer, not hitting staff. Still attempting to disrobe. 1:[address]
[2024-12-30 03:50] VITALS: BP 130/49; PULSE 81; RESP 16; TEMP 36.7; O2SAT 98
[2024-12-30 07:08] VITALS: BP 171/73; PULSE 68; RESP 18; TEMP 36.1; O2SAT 95
--- NOTE | 2024-12-30 08:34 | P.PNIM_ITS ---
Subjective Subjective Date of Service: 12/30/24 Interval History: seen and examined this morning follow up encephalopathy, UTI stayed in recliner overnight Review of Systems Review of Systems: Yes all other systems are reviewed and are negative Constitutional Constitutional: Denies chills and Denies fever(s) Physical Exam 2 Vital Signs: Vital Signs: Last Vital Signs Temp 97.0 F 12/30/24 07:08 Pulse 68 12/30/24 07:08 Resp 18 12/30/24 07:08 BP 171/73 H 12/30/24 07:08 Pulse Ox 95 12/30/24 07:08 O2 Del Method Room Air 12/30/24 07:08 BMI result Body Mass Index 30.0 Appearing in no acute distress lung sounds are clear to auscultation heart regular rate rhythm, clear S1, S2 positive bowel sounds, abdomen is soft, nontender neuro patient is sleeping Objective Data Active Medications Acetaminophen (Acetaminophen 325 Mg Tablet) 650 mg PO Q6H PRN PRN Reason: Pain, Mild 1-3,fever,headache Last Admin: 12/29/24 01:56 Dose: 650 mg Documented By: FANTA Aspirin (Aspirin 81 Mg Tab.Chew) 81 mg PO DAILY [facility] Last Admin: 12/29/24 07:44 Dose: 81 mg Documented By: LORNA Atorvastatin Calcium (Atorvastatin Calcium 20 Mg Tablet) 20 mg PO BEDTIME [facility] Last Admin: 12/29/24 19:56 Dose: 20 mg Documented By: FANTA Calcium Carbonate (Calcium Carbonate 750 Mg Tab.Chew) 750 mg PO Q4H PRN PRN Reason: Heartburn Last Admin: 12/29/24 05:59 Dose: 750 mg Documented By: FANTA Ceftriaxone Sodium (Ceftriaxone Sodium 1 Gm Vial) 1 gm IVPUSH Q24H [facility] Last Admin: 12/29/24 14:11 Dose: 1 gm Documented By: LORNA Docusate Sodium (Docusate Sodium 100 Mg Capsule) 200 mg PO BID [facility] Last Admin: 12/29/24 19:56 Dose: 200 mg Documented By: FANTA Duloxetine HCl (Duloxetine Hcl 20 Mg Capsule.Dr) 20 mg PO DAILY [facility] Last Admin: 12/29/24 07:44 Dose: 20 mg Documented By: LORNA Furosemide (Furosemide 20 Mg Tablet) 30 mg PO DAILY [facility]; Protocol Last Admin: 12/29/24 07:42 Dose: 30 mg Documented By: LORNA Heparin Sodium (Porcine) (Heparin Sodium,Porcine 5,000 Unit/Ml Vial) 5,000 unit SUBCUT Q12H [facility] Last Admin: 12/30/24 04:30 Dose: 5,000 unit Documented By: FANTA Hydralazine HCl (Hydralazine Hcl 20 Mg/Ml Vial) 5 mg IVPUSH Q6H PRN; Protocol PRN Reason: SBP >180 Levothyroxine Sodium (Levothyroxine Sodium 125 Mcg Tablet) 125 mcg PO DAILY [facility] Last Admin: 12/29/24 07:44 Dose: 125 mcg Documented By: LORNA Lisinopril (Lisinopril 10 Mg Tablet) 10 mg PO DAILY [facility]; Protocol Last Admin: 12/29/24 07:44 Dose: 10 mg Documented By: LORNA Lorazepam (Lorazepam 0.5 Mg Tablet) 0.5 mg PO BEDTIME PRN On Hold: 12/28/24 09:33 PRN Reason: anxiety/agitation Last Admin: 12/26/24 21:40 Dose: 0.5 mg Documented By: LISE Magnesium Hydroxide (Milk Of Magnesia 30 Ml Oral.Susp) 30 ml PO DAILY PRN PRN Reason: Constipation Melatonin (Melatonin 3 Mg Tablet) 6 mg PO BEDTIME PRN PRN Reason: Insomnia Last Admin: 12/29/24 19:56 Dose: 6 mg Documented By: FANTA Ondansetron HCl (Ondansetron Hcl 4 Mg/2 Ml Vial) 4 mg IVPUSH Q6H PRN PRN Reason: Nausea and Vomiting Last Admin: 12/30/24 04:30 Dose: 4 mg Documented By: FANTA Oxycodone HCl (Oxycodone Hcl Immed Release 5 Mg Tablet) 2.5 mg PO Q6H PRN PRN Reason: Pain, Moderate(Pain Scale 4-6) Last Admin: 12/29/24 19:57 Dose: 2.5 mg Documented By: FANTA Polyethylene Glycol (Polyethylene Glycol 3350 17 Gm Powd.Pack) 17 gm PO DAILY [facility] Last Admin: 12/29/24 07:45 Dose: 17 gm Documented By: LORNA Potassium Chloride (Potassium Chloride Er 20 Meq Tab.Er.Prt) 20 meq PO BID [facility] Last Admin: 12/29/24 22:38 Dose: Not Given Documented By: FANTA Non-Admin Reason: pt refused to take today Risperidone (Risperidone 0.25 Mg Tablet) 0.25 mg PO BID [facility] Last Admin: 12/29/24 19:57 Dose: 0.25 mg Documented By: FANTA Senna (Sennosides 8.6 Mg Tablet) 8.6 mg PO BEDTIME [facility] Last Admin: 12/29/24 19:56 Dose: 8.6 mg Documented By: FANTA Sodium Chloride (0.9 % Sodium Chloride Flush 3 Ml Syringe) 3 ml IVFLUSH QSHIFT [facility] Last Admin: 12/29/24 19:57 Dose: 3 ml Documented By: FANTA Labs 12/25/24 13:46 12/28/24 09:30 Microbiology Microbiology Results: Microbiology 12/26/24 Unknown Urine Culture - Final Urine clean catch - Clean Catch Midstream Staphylococcus haemolyticus Assessment and Plan (1) Memory loss or impairment: Status: Acute (2) Acute UTI: Status: Acute (3) Hypokalemia: Status: Acute Plan 84-year-old female with history of underlying cognitive impairment, HLD, HTN, hypothyroidism, CKD3 recent admission to [facility] for mechanical fall found to have L1 fracture and incidental finding of AAA status post EVAR, seen in the emergency department 12/22 for dizziness and diagnosed with a UTI and hypokalemia who returns with increasing generalized weakness and confusion found to have UTI UTI due to eason catheter Urine culture suggestive of contamination Continue IV ceftriaxone to complete tx Blood cultures negative to date urinary retention eason out - passed voiding trial voiding without difficulty Toxic metabolic encephalopathy on a background of dementia Seems to be gradually declining over the past several months, may be compounded by above UTI psych eval for med adjustment>has been getting prn ativan as outpatient which doesn't appear to be effective started low dose risperidone at bedtime uncontrolled HTN bp meds d/c during hospitalization at [facility] bp improving with lisinopril, adjust as necessary p.r.n. IV hydralazine as needed for blood pressure greater than 180 systolic Hypokalemia Likely due to Lasix (reportedly taking for leg edema not CHF) improved with replacement continue po replacement Acute lactic acidosis Does not meet sepsis criteria Question due to dehydration resolved with IVF cognitive impairment/dementia seems to have had significant decline over the past few months; has been in and out of hospital/rehab not on baseline meds [place] [facility] [place]due to bradycardia leg edema resume po lasix continue po k replacement keep legs elevated continue compression stockings Hypothyroidism Continue Synthroid CKD3 at baseline AAA s/p EVAR at [facility] ASA, statin willard non-compliant with cpap obesity class I bmi 30.0 weight loss encouraged DVT prophylaxis-heparin Code status-DNR/DNI dispo -plan for STR Patient requires ongoing inpatient stay for management of UTI requiring IV antibiotics Quality Stroke Does the patient have a stroke diagnosis?: No VTE Prior VTE?: No VTE Risk Level:: Medical - moderate - high VTE Device Contraindication: N/A - Device Ordered VTE Drug Contraindication: N/A - Med Ordered
[2024-12-30] MEDS: Potassium Chloride ER 20 MEQ TAB.ER.PRT PO ×2 (10:47→19:46)
[2024-12-30 11:07] VITALS: BP 180/74; PULSE 58; RESP 16; TEMP 36.6; O2SAT 100
[2024-12-30] MEDS: 0.9 % Sodium Chloride Flush 3 ML SYRINGE IVFLUSH (11:30)
[2024-12-30 15:25] VITALS: BP 136/80; PULSE 73; RESP 18; TEMP 36.2; O2SAT 97
[2024-12-30 19:38] VITALS: BP 170/66; PULSE 63; RESP 18; TEMP 36.8; O2SAT 97
[2024-12-30 23:15] VITALS: BP 171/76; PULSE 65; RESP 16; TEMP 36.1; O2SAT 94
--- NOTE | 2024-12-31 | ECG_ITS ---
Test Reason : done for RR Blood Pressure : */* mmHG Vent. Rate : 50 BPM Atrial Rate : 50 BPM P-R Int : 136 ms QRS Dur : 78 ms QT Int : 482 ms P-R-T Axes : 43 -17 2 degrees QTcB Int : 439 ms Sinus bradycardia Cannot rule out Anterior infarct , age undetermined Abnormal ECG When compared with ECG of 31-Dec-2024 14:47, No significant change was found Referred By: Christina Trejo Electronically Signed By:
[2024-12-31 07:12] VITALS: BP 140/67; PULSE 50; RESP 18; TEMP 36.2; O2SAT 98
[2024-12-31] MEDS: Potassium Chloride ER 20 MEQ TAB.ER.PRT PO ×2 (09:14→21:39)
[2024-12-31 09:36] LABS: Anion Gap 12 (12-20); Blood Urea Nitrogen 14 mg/dL (9-16); Calcium 9.8 mg/dL (8.4-10.2); Carbon Dioxide 30 mmol/L (22-29); Chloride 106 mmol/L (96-108); Creatinine Clr Calc Pharmacy 44.5; Estimated Glomerular Filt Rate 57; Potassium 3.3 mmol/L (3.3-5.1); Sodium 145 mmol/L (135-145)
[2024-12-31 10:58] VITALS: BP 143/63; PULSE 56; RESP 20; TEMP 36.6; O2SAT 96
[2024-12-31] MEDS: 0.9 % Sodium Chloride Flush 3 ML SYRINGE IVFLUSH ×2 (11:00)
--- NOTE | 2024-12-31 13:50 | P.DS_ITS ---
DS: Providers Provider Date of Service: 12/31/24 Date of admission: 12/25/24 14:50 Date of discharge: 12/31/24 Primary care physician: Hector Phelps MD Consults: 12/25/24 15:43 Consult to Wound Care Routine Reason for consultation: coccyx 12/28/24 09:35 Consult to Psychiatry Routine Consulting Provider: [facility] [place] [facility] Reason for consultation: dementia with agitation Has provider been notified: No DS: Diagnosis Discharge Diagnosis (1) Memory loss or impairment: Status: Acute (2) Acute UTI: Status: Acute (3) Hypokalemia: Status: Acute DS: Summary Hospital Course Hospital Course: History and physical as per admitting provider. This is an 84 year old female who was seen in the ED 12/22 for dizziness found to have hypokalemia and urinary retention with Eason catheter inserted, patient was sent home with Eason catheter. History is primarily obtained with the patient's daughter at the bedside. Patient has had significant deterioration over the past several months with multiple acute medical issues. Since she was seen in the emergency department 3 days ago she has noted increasing concentrated urine, intermittent small clots. Frequent reports of pain in multiple areas, chronically swollen lower extremities. In the emergency department patient was afebrile, lab work revealed no leukocytosis. Urinalysis consistent with UTI, Started IV ceftriaxone. Lab work was significant for hypokalemia with a potassium 2.6 as well as lactic acid of 2.2. Patient's daughter at the bedside notes progression of underlying cognitive impairment although no official diagnosis of dementia has been made. She was admitted at [facility] on 10/02 - 10/22 for an evaluation after a mechanical Fall, and found to have L1 fracture. There was an incidental finding of AAA 5.4 cm s/p EVAR (10/16/24). She was subsequently transferred and admitted to a SNF 10/22 - 11/27 for PT and OT. Since that time her blood pressure medications have been on hold. In the ED her blood pressure was elevated. Patient complained of pain in multiple areas which her daughter states has been the case chronically and more so recently. She will be admitted for further management of UTI, hypokalemia. UTI due to eason catheter Urine culture suggestive of contamination treated with IV ceftriaxone Blood cultures negative to date urinary retention eason out - passed voiding trial voiding without difficulty Toxic metabolic encephalopathy on a background of dementia Seems to be gradually declining over the past several months, may be compounded by above UTI psych eval for med adjustment>has been getting prn ativan as outpatient which doesn't appear to be effective started low dose risperidone at bedtime uncontrolled HTN bp meds d/c during hospitalization at [facility] bp improving with lisinopril, adjust as necessary p.r.n. IV hydralazine while inpatient Hypokalemia Likely due to Lasix (reportedly taking for leg edema not CHF) improved with replacement continue po replacement Acute lactic acidosis did not meet sepsis criteria Question due to dehydration resolved with IVF cognitive impairment/dementia seems to have had significant decline over the past few months; has been in and out of hospital/rehab not on baseline meds [place] [facility] [place] ?due to bradycardia leg edema po lasix continue po k replacement keep legs elevated continue compression stockings Hypothyroidism Continue Synthroid CKD3 at baseline AAA s/p EVAR at [facility] ASA, statin willard non-compliant with cpap obesity class I bmi 30.0 weight loss encouraged Less than 30 day stay expected Time Attestation Discharge Coordination Time (in mins): 42 Quality: Safe Use of Opioids Does Pt have an Active Cancer Diagnosis on the Problem List?: No Quality: Stroke Does the patient have a stroke diagnosis?: No Physical Exam Vital Signs: Vital Signs: Last Vital Signs Temp 97.8 F 12/31/24 10:58 Pulse 56 12/31/24 10:58 Resp 20 12/31/24 10:58 BP 143/63 H 12/31/24 10:58 Pulse Ox 96 12/31/24 10:58 O2 Del Method Room Air 12/31/24 10:58 BMI result Body Mass Index 30.0 Appearing in no acute distress head is normocephalic atraumatic eyes pupils are PERRLA sclera is anicteric mouth throat mucous membranes are intact and moist neck is supple no lymphadenopathy, no JVD noted lung sounds are clear to auscultation heart regular rate rhythm, clear S1, S2 positive bowel sounds, abdomen is soft, nontender neuro patient is alert, confused DS: Data Data Completed and Pending Labs on day of discharge: Laboratory Results - last 24 hr 12/31/24 09:19 Sodium 145 Potassium 3.3 Chloride 106 Carbon Dioxide 30 H Anion Gap 12 BUN 14 Creatinine 0.94 Estim Creat Clear Calc 44.5 Estimated GFR 57 Random Glucose 106 Calcium 9.8 Discharge Plan Discharge Anticipated Discharge Date/Time: 12/31/24 13:42 Patient Disposition: Xfer SNF Discharge Diagnosis: UTI Urinary retention Eason catheter removal Toxic metabolic encephalopathy Dementia Hypokalemia [facility] [Outside] - 1 Week Hector Phelps MD [Primary Care Provider, Internal Medicine] - 1 Week Discharge Medications: New lisinopril 20 mg Tablet 20 mg PO DAILY Qty: 30 0RF Protocol: Hold for SBP< HOLD for SBP < : 90 risperidone 0.25 mg Tablet 0.25 mg PO BID Qty: 60 0RF duloxetine 20 mg Capsule,Delayed Release(Dr/Ec) 20 mg PO DAILY Qty: 30 0RF Continued levothyroxine 125 mcg tablet 125 mcg PO DAILY 90 Days Qty: 90 1RF lorazepam 0.5 mg tablet 0.5 mg PO BEDTIME PRN (Reason: anxiety/agitation) Qty: 30 0RF potassium chloride [Klor-Con 10] 10 mEq tablet extended release 10 meq PO DAILY 14 Days Qty: 14 0RF sennosides [senna] 8.6 mg Tablet 8.6 mg PO BEDTIME docusate sodium 100 mg Capsule 200 mg PO BID aspirin 81 mg Tablet 81 mg PO DAILY atorvastatin 20 mg tablet 20 mg PO BEDTIME furosemide 20 mg tablet 30 mg PO DAILY Discharge Orders: Discharge Order (Routine); Ordered 12/31/24 Ordered By: Christina Trejo Diet: Advance to usual diet Activity on Discharge: As tolerated Stand Alone Forms: Patient Portal Discharge page Print Language: Panamanian Care Plan Goals: Transfer to short-term rehab for physical therapy Health Concerns: UTI Urinary retention Eason catheter removal Toxic metabolic encephalopathy Dementia Hypokalemia Plan of Treatment: Follow-up with primary care provider as needed Take all medications as prescribed Assessment: See discharge summary
--- NOTE | 2024-12-31 14:11 | MHC.CM.PN ---
second IMM discussed on phone with dtr, copy to go pt. in DC paperwork. Pt will go to [facility] for STR. dtr away and in agreement with plan. she will go via S.
[2024-12-31 15:02] LABS: Glucose, Whole Blood 136 mg/dL (60-115)
--- NOTE | 2024-12-31 15:04 | MHC.CM.PN ---
Pt. had episode of near syncope. Provider holding off on DC, anticipate she will DC to STR tomorrow.
[2024-12-31 15:15] VITALS: BP 107/61; PULSE 47; RESP 17; TEMP 36.6; O2SAT 94
--- NOTE | 2024-12-31 15:21 | PC.NURSE ---
Approximately @ 1450 pt became unresponsive while utilizing the bedside commode. IMMIGRATION JUDGE called. Pt responded to external rub after multiple attempts. BP 113/53, HR 53, POC 136. 1L NS given per Christina Trejo.?
--- NOTE | 2024-12-31 15:26 | PM.EVENT ---
Event Note Date of Service: 12/31/24 Event Note: Rapid response called at approximately 14:45. Patient was sitting on the commode and she ?passed out?. Staff was able to put her back into bed. Patient was unresponsive initially for few sec. Sternal rub woke her up. But it did take her a few minutes to clinic, round completely and she was more awake. Her blood pressure was 113/53, heart rate 50, point of care 136, oxygen saturation 97%. EKG showing sinus bradycardia. Patient placed on telemetry. Discharge will be canceled and patient will be monitored overnight. Time Spent With Patient Time: Total time managing care of this patient today ____ minutes.
--- NOTE | 2024-12-31 15:28 | HO.PM.IMPN ---
Subjective Subjective Date of Service: 12/31/24 Interval History: seen and examined this morning follow up encephalopathy, UTI Had episode of syncope while on commode Review of Systems Review of Systems: Yes all other systems are reviewed and are negative Constitutional Constitutional: Denies chills and Denies fever(s) Physical Exam Vital Signs: Vital Signs: Last Vital Signs Temp 97.8 F 12/31/24 15:15 Pulse 47 L 12/31/24 15:15 Resp 17 12/31/24 15:15 BP 107/61 12/31/24 15:15 Pulse Ox 94 12/31/24 15:15 O2 Del Method Room Air 12/31/24 15:15 BMI result Body Mass Index 30.0 Appearing in no acute distress lung sounds are clear to auscultation heart regular rate rhythm, clear S1, S2 positive bowel sounds, abdomen is soft, nontender neuro patient is alert, confused Objective Data Active Medications Acetaminophen (Acetaminophen 325 Mg Tablet) 650 mg PO Q6H PRN PRN Reason: Pain, Mild 1-3,fever,headache Last Admin: 12/31/24 12:37 Dose: 650 mg Documented By: JUANITA Aspirin (Aspirin 81 Mg Tab.Chew) 81 mg PO DAILY [facility] Last Admin: 12/31/24 11:19 Dose: Not Given Documented By: JUANITA Non-Admin Reason: pt vomiting Atorvastatin Calcium (Atorvastatin Calcium 20 Mg Tablet) 20 mg PO BEDTIME [facility] Last Admin: 12/30/24 19:46 Dose: 20 mg Documented By: MONAE Calcium Carbonate (Calcium Carbonate 750 Mg Tab.Chew) 750 mg PO Q4H PRN PRN Reason: Heartburn Last Admin: 12/29/24 05:59 Dose: 750 mg Documented By: FANTA Ceftriaxone Sodium (Ceftriaxone Sodium 1 Gm Vial) 1 gm IVPUSH Q24H [facility] Last Admin: 12/31/24 14:38 Dose: 1 gm Documented By: JUANITA Docusate Sodium (Docusate Sodium 100 Mg Capsule) 200 mg PO BID [facility] Last Admin: 12/31/24 11:19 Dose: Not Given Documented By: JUANITA Non-Admin Reason: pt vomiting Duloxetine HCl (Duloxetine Hcl 20 Mg Capsule.Dr) 20 mg PO DAILY [facility] Last Admin: 12/31/24 11:20 Dose: Not Given Documented By: JUANITA Non-Admin Reason: pt vomiting Furosemide (Furosemide 20 Mg Tablet) 30 mg PO DAILY [facility]; Protocol Last Admin: 12/31/24 09:16 Dose: 30 mg Documented By: YANI Comments: [id number] Heparin Sodium (Porcine) (Heparin Sodium,Porcine 5,000 Unit/Ml Vial) 5,000 unit SUBCUT Q12H [facility] Last Admin: 12/31/24 05:58 Dose: 5,000 unit Documented By: MONAE Hydralazine HCl (Hydralazine Hcl 20 Mg/Ml Vial) 5 mg IVPUSH Q6H PRN; Protocol PRN Reason: SBP >180 Levothyroxine Sodium (Levothyroxine Sodium 125 Mcg Tablet) 125 mcg PO DAILY [facility] Last Admin: 12/31/24 09:20 Dose: 125 mcg Documented By: YANI Lisinopril (Lisinopril 20 Mg Tablet) 20 mg PO DAILY [facility]; Protocol Last Admin: 12/31/24 09:20 Dose: 20 mg Documented By: YANI Lorazepam (Lorazepam 0.5 Mg Tablet) 0.5 mg PO BEDTIME PRN On Hold: 12/28/24 09:33 PRN Reason: anxiety/agitation Last Admin: 12/26/24 21:40 Dose: 0.5 mg Documented By: LISE Magnesium Hydroxide (Milk Of Magnesia 30 Ml Oral.Susp) 30 ml PO DAILY PRN PRN Reason: Constipation Melatonin (Melatonin 3 Mg Tablet) 6 mg PO BEDTIME PRN PRN Reason: Insomnia Last Admin: 12/30/24 19:46 Dose: 6 mg Documented By: MONAE Ondansetron HCl (Ondansetron Hcl 4 Mg/2 Ml Vial) 4 mg IVPUSH Q6H PRN PRN Reason: Nausea and Vomiting Last Admin: 12/30/24 11:35 Dose: 4 mg Documented By: YANI Polyethylene Glycol (Polyethylene Glycol 3350 17 Gm Powd.Pack) 17 gm PO DAILY [facility] Last Admin: 12/31/24 09:16 Dose: 17 gm Documented By: YANI Potassium Chloride (Potassium Chloride Er 20 Meq Tab.Er.Prt) 20 meq PO BID [facility] Last Admin: 12/31/24 09:14 Dose: 20 meq Documented By: YANI Risperidone (Risperidone 0.25 Mg Tablet) 0.25 mg PO BID [facility] Last Admin: 12/31/24 11:20 Dose: Not Given Documented By: JUANITA Non-Admin Reason: pt vomiting Senna (Sennosides 8.6 Mg Tablet) 8.6 mg PO BEDTIME [facility] Last Admin: 12/30/24 19:46 Dose: 8.6 mg Documented By: MONAE Sodium Chloride (0.9 % Sodium Chloride Flush 3 Ml Syringe) 3 ml IVFLUSH QSHIFT [facility] Last Admin: 12/31/24 11:00 Dose: 3 ml Documented By: JUANITA Labs 12/25/24 13:46 12/31/24 09:19 Labs: Laboratory Results - last 24 hr 12/31/24 12/31/24 09:19 14:55 Anion Gap 12 Estim Creat Clear Calc 44.5 Estimated GFR 57 POC Glucose 136 H Random Glucose 106 Calcium 9.8 Microbiology Microbiology Results: Microbiology 12/25/24 13:46 Blood Culture - Final Blood - Venous No growth after 5 days. 12/25/24 13:46 Blood Culture - Final Blood - Venous No growth after 5 days. Assessment and Plan (1) Memory loss or impairment: Status: Acute (2) Acute UTI: Status: Acute (3) Hypokalemia: Status: Acute Plan 84-year-old female with history of underlying cognitive impairment, HLD, HTN, hypothyroidism, CKD3 recent admission to [facility] [place] for mechanical fall found to have L1 fracture and incidental finding of AAA status post EVAR, seen in the emergency department 12/22 for dizziness and diagnosed with a UTI and hypokalemia who returns with increasing generalized weakness and confusion found to have UTI Syncope, likely vasovagal Patient patient was on the commode Has some mild bradycardia, not on rate controlling medications Monitor patient on telemetry Consult Cardiology for significant bradycardia UTI due to eason catheter Urine culture suggestive of contamination Continue IV ceftriaxone to complete tx Blood cultures negative to date urinary retention eason out - passed voiding trial voiding without difficulty Toxic metabolic encephalopathy on a background of dementia Seems to be gradually declining over the past several months, may be compounded by above UTI psych eval for med adjustment>has been getting prn ativan as outpatient which doesn't appear to be effective started low dose risperidone at bedtime uncontrolled HTN bp meds d/c during hospitalization at [facility] [place] bp improving with lisinopril, adjust as necessary p.r.n. IV hydralazine as needed for blood pressure greater than 180 systolic Hypokalemia Likely due to Lasix (reportedly taking for leg edema not CHF) improved with replacement continue po replacement Acute lactic acidosis Does not meet sepsis criteria Question due to dehydration resolved with IVF cognitive impairment/dementia seems to have had significant decline over the past few months; has been in and out of hospital/rehab not on baseline meds done[place] d/[place] [facility] [place] ?due to bradycardia leg edema resume po lasix continue po k replacement keep legs elevated continue compression stockings Hypothyroidism Continue Synthroid CKD3 at baseline AAA s/p EVAR at [facility] [place] ASA, statin willard non-compliant with cpap obesity class I bmi 30.0 weight loss encouraged DVT prophylaxis-heparin Code status-DNR/DNI dispo -plan for STR when medically clear Quality Stroke Does the patient have a stroke diagnosis?: No VTE Prior VTE?: No VTE Risk Level:: Medical - moderate - high VTE Device Contraindication: N/A - Device Ordered VTE Drug Contraindication: N/A - Med Ordered
[2024-12-31 16:23] VITALS: BP 107/64
[2024-12-31 20:00] VITALS: BP 132/54; PULSE 52; RESP 18; TEMP 36.3; O2SAT 96
[2024-12-31 20:12] LABS: Hematocrit 33.5 % (37.0-47.0); Hemoglobin 10.8 g/dl (12.0-16.0); Mean Corpuscular HGB Conc 32.2 g/dl (31.0-35.0); Mean Corpuscular Hemoglobin 31.7 pg (27.0-33.0); Mean Corpuscular Volume 98.2 fL (80.0-98.0); NRBC Abs Auto 0.000 X10*3/uL (0.0-0.012); NRBC Pct Auto 0.0 /100WBC (0.0-0.2); Platelet Count 279 X10*3/uL (160-400); Red Blood Count 3.41 X10*6/uL (4.20-5.50); White Blood Count 8.1 X10*3/uL (4.8-10.8)
[2024-12-31 20:33] LABS: Anion Gap 13 (12-20); Blood Urea Nitrogen 16 mg/dL (9-16); Calcium 9.2 mg/dL (8.4-10.2); Carbon Dioxide 25 mmol/L (22-29); Chloride 110 mmol/L (96-108); Creatinine Clr Calc Pharmacy 36.1; Estimated Glomerular Filt Rate 44; Magnesium 2.1 mg/dL (1.6-2.6); Potassium 3.5 mmol/L (3.3-5.1); Sodium 144 mmol/L (135-145)
[2024-12-31 20:49] LABS: Thyroid Stimulating Hormone 6.55 uIU/mL (0.32-4.0)
[2025-01-01] VITALS: BP 142/56; PULSE 51; RESP 18; TEMP 36.3; O2SAT 96
[2025-01-01 04:00] VITALS: BP 142/65; PULSE 55; RESP 16; TEMP 36.8; O2SAT 95
[2025-01-01 06:58] VITALS: BP 147/65; PULSE 50; RESP 20; TEMP 36.1; O2SAT 95
[2025-01-01 08:29] VITALS: BP 147/65
[2025-01-01] MEDS: 0.9 % Sodium Chloride Flush 3 ML SYRINGE IVFLUSH (08:29)
--- NOTE | 2025-01-01 08:35 | MHC.CM.PN ---
Addendum entered by Mary Ruiz RN 01/01/25 10:57: [facility] FOR BLS TRANSPORT AT 2PM, DTR/HCP HANNY [phone] AWARE AND AGREEABLE TO PLAN Original Note: ANTIC PT [facility] MEDICALLY CLEAR[facility]
--- NOTE | 2025-01-01 10:47 | PM.DS ---
DS: Providers Provider Date of Service: 01/01/25 Date of admission: 12/25/24 14:50 Date of discharge: 01/01/25 Primary care physician: Hector Phelps MD Consults: 12/25/24 15:43 Consult to Wound Care Routine Reason for consultation: coccyx 12/28/24 09:35 Consult to Psychiatry Routine Consulting Provider: [facility] Reason for consultation: dementia with agitation Has provider been notified: No DS: Diagnosis Discharge Diagnosis (1) Memory loss or impairment: Status: Acute (2) Acute UTI: Status: Acute (3) Hypokalemia: Status: Acute DS: Summary Hospital Course Hospital Course: History and physical as per admitting provider. This is an 84 year old female who was seen in the ED 12/22 for dizziness found to have hypokalemia and urinary retention with Eason catheter inserted, patient was sent home with Eason catheter. History is primarily obtained with the patient's daughter at the bedside. Patient has had significant deterioration over the past several months with multiple acute medical issues. Since she was seen in the emergency department 3 days ago she has noted increasing concentrated urine, intermittent small clots. Frequent reports of pain in multiple areas, chronically swollen lower extremities. In the emergency department patient was afebrile, lab work revealed no leukocytosis. Urinalysis consistent with UTI, Started IV ceftriaxone. Lab work was significant for hypokalemia with a potassium 2.6 as well as lactic acid of 2.2. Patient's daughter at the bedside notes progression of underlying cognitive impairment although no official diagnosis of dementia has been made. She was admitted at [facility] on 10/02 - 10/22 for an evaluation after a mechanical Fall, and found to have L1 fracture. There was an incidental finding of AAA 5.4 cm s/p EVAR (10/16/24). She was subsequently transferred and admitted to a SNF 10/22 - 11/27 for PT and OT. Since that time her blood pressure medications have been on hold. In the ED her blood pressure was elevated. Patient complained of pain in multiple areas which her daughter states has been the case chronically and more so recently. She will be admitted for further management of UTI, hypokalemia. UTI due to eason catheter Urine culture suggestive of contamination treated with IV ceftriaxone Blood cultures negative to date urinary retention eason out - passed voiding trial voiding without difficulty Toxic metabolic encephalopathy on a background of dementia Seems to be gradually declining over the past several months, may be compounded by above UTI psych eval for med adjustment>has been getting prn ativan as outpatient which doesn't appear to be effective started low dose risperidone at bedtime vasovagal syncope patient had [employer] called on 12/31/24 for syncope after voiding was laid in trendelenburg and given ivf, LOC for about 5 minutes, then returned to conciousness with improved BP was on on monitor during evet, but most consistent with vasovagal, sick sinus or av block contributing, has been steady sinus bradycardia in low 50s. uncontrolled HTN bp meds d/c during hospitalization at [facility] bp improving with lisinopril, adjust as necessary p.r.n. IV hydralazine while inpatient Hypokalemia Likely due to Lasix (reportedly taking for leg edema not CHF) improved with replacement continue po replacement Acute lactic acidosis did not meet sepsis criteria Question due to dehydration resolved with IVF cognitive impairment/dementia seems to have had significant decline over the past few months; has been in and out of hospital/rehab not on baseline meds donepezil d/c at [facility] ?due to bradycardia leg edema po lasix continue po k replacement keep legs elevated continue compression stockings Hypothyroidism Continue Synthroid CKD3 at baseline AAA s/p EVAR at [facility], statin willard non-compliant with cpap obesity class I bmi 30.0 weight loss encouraged Less than 30 day stay expected Time Attestation Discharge Coordination Time (in mins): 33 Quality: Safe Use of Opioids Does Pt have an Active Cancer Diagnosis on the Problem List?: No Quality: Stroke Does the patient have a stroke diagnosis?: No Physical Exam Vital Signs: Vital Signs: Last Vital Signs Temp 97.0 F 01/01/25 06:58 Pulse 50 01/01/25 06:58 Resp 20 01/01/25 06:58 BP 147/65 H 01/01/25 08:29 Pulse Ox 95 01/01/25 06:58 O2 Del Method Room Air 01/01/25 06:58 BMI result Body Mass Index 30.0 Appearing in no acute distress lung sounds are clear to auscultation heart regular rate rhythm, clear S1, S2 positive bowel sounds, abdomen is soft, nontender neuro patient is alert, confused DS: Data Data Completed and Pending Labs on day of discharge: Laboratory Results - last 24 hr 12/31/24 12/31/24 14:55 19:59 WBC 8.1 RBC 3.41 L Hgb 10.8 L Hct 33.5 L MCV 98.2 H MCH 31.7 MCHC 32.2 RDW 14.4 Plt Count 279 MPV 9.5 Absolute Nucleated RBC 0.000 Nucleated RBC % (auto) 0.0 Sodium 144 Potassium 3.5 Chloride 110 H Carbon Dioxide 25 Anion Gap 13 BUN 16 Creatinine 1.16 Estim Creat Clear Calc 36.1 Estimated GFR 44 POC Glucose 136 H Random Glucose 131 H Calcium 9.2 D Magnesium 2.1 TSH 6.55 H Discharge Plan Discharge Anticipated Discharge Date/Time: 12/31/24 13:42 Patient Disposition: Xfer SNF Discharge Diagnosis: UTI Urinary retention Eason catheter removal Toxic metabolic encephalopathy Dementia Hypokalemia Referrals: [facility] [Outside] - 1 Week Hector Phelps MD [Primary Care Provider, Internal Medicine] - 1 Week Discharge Medications: New lisinopril 20 mg Tablet 20 mg PO DAILY Qty: 30 0RF Protocol: Hold for SBP< HOLD for SBP < : 90 risperidone 0.25 mg Tablet 0.25 mg PO BID Qty: 60 0RF duloxetine 20 mg Capsule,Delayed Release(Dr/Ec) 20 mg PO DAILY Qty: 30 0RF Continued levothyroxine 125 mcg tablet 125 mcg PO DAILY 90 Days Qty: 90 1RF lorazepam 0.5 mg tablet 0.5 mg PO BEDTIME PRN (Reason: anxiety/agitation) Qty: 30 0RF potassium chloride [Klor-Con 10] 10 mEq tablet extended release 10 meq PO DAILY 14 Days Qty: 14 0RF sennosides [senna] 8.6 mg Tablet 8.6 mg PO BEDTIME docusate sodium 100 mg Capsule 200 mg PO BID aspirin 81 mg Tablet 81 mg PO DAILY atorvastatin 20 mg tablet 20 mg PO BEDTIME furosemide 20 mg tablet 30 mg PO DAILY Discharge Orders: Discharge Order (Routine); Ordered 12/31/24 Ordered By: Christina Trejo Diet: Advance to usual diet Activity on Discharge: As tolerated Stand Alone Forms: Patient Portal Discharge page Print Language: Bangladeshi Care Plan Goals: Transfer to short-term rehab for physical therapy Health Concerns: UTI Urinary retention Eason catheter removal Toxic metabolic encephalopathy Dementia Hypokalemia Plan of Treatment: Follow-up with primary care provider as needed Take all medications as prescribed Assessment: See discharge summary
[2025-01-01 11:19] VITALS: BP 147/67; PULSE 71; RESP 18; TEMP 36.2; O2SAT 97
== END 2025-01-01 15:16 | disposition skilled nursing facility (03) | DRG 698 ==
LOC: HO.ED 15:26 → HO.EDOVER 15:59 → HO.IMC 12-26 07:59
PROVIDERS: Nurse Practitioner Acute Care; Physician Assistant Medical; Registered Nurse Emergency; Admitting Provider Physician Assistant Medical; Emergency Provider Emergency Medicine; PCP Internal Medicine; Visit Provider Internal Medicine
DX: T83.511A Infection and inflammatory reaction due to indwelling urethral catheter, initial encounter (principal); G92.8 Other toxic encephalopathy; E87.21 Acute metabolic acidosis; I12.9 Hypertensive chronic kidney disease with stage 1 through stage 4 chronic kidney disease, or unspecified chronic kidney disease; F03.90 Unspecified dementia, unspecified severity, without behavioral disturbance, psychotic disturbance, mood disturbance, and anxiety; E87.6 Hypokalemia; N18.30 Chronic kidney disease, stage 3 unspecified; E11.22 Type 2 diabetes mellitus with diabetic chronic kidney disease; R33.9 Retention of urine, unspecified; G47.33 Obstructive sleep apnea (adult) (pediatric); Z66 Do not resuscitate; E66.811 Obesity, class 1; N39.0 Urinary tract infection, site not specified; Z71.3 Dietary counseling and surveillance; R55 Syncope and collapse; Z68.30 Body mass index [BMI] 30.0-30.9, adult; E03.9 Hypothyroidism, unspecified; R00.1 Bradycardia, unspecified; R31.0 Gross hematuria; Z20.822 Contact with and (suspected) exposure to COVID-19; Z87.891 Personal history of nicotine dependence; Z79.82 Long term (current) use of aspirin; Z79.890 Hormone replacement therapy; Z79.899 Other long term (current) drug therapy
CPT/HCPCS: 36415; 80048; 80076; 81001; 82550; 82947; 83605; 83735; 84132; 84443; 84484; 85025; 85027; 87040; 87086; 87088; 87186; 87637; 93005; 97162; 97167; 99285; J0696; J1644; J2405; J3360; J3480

== ENCOUNTER → 2024-12-25 12:42 | Outpatient (BNV) | payer MEDICARE, SELFPAY | PROVIDERS: Admitting Provider Physician Assistant Medical; Emergency Provider Emergency Medicine; PCP Internal Medicine; Visit Provider Internal Medicine Cardiovascular Disease | DX: R00.1 Bradycardia, unspecified (principal) | CPT/HCPCS: 93010 ==

== ENCOUNTER → 2024-12-25 14:50 | Outpatient (BNV) | payer MEDICARE, SELFPAY | PROVIDERS: Admitting Provider Physician Assistant Medical; Emergency Provider Emergency Medicine; PCP Internal Medicine; Visit Provider Physician Assistant Medical | DX: R41.3 Other amnesia (principal); N39.0 Urinary tract infection, site not specified; E87.6 Hypokalemia | CPT/HCPCS: 99223; 99232 ==

== ENCOUNTER → 2024-12-25 14:50 | Outpatient (BNV) | payer MEDICARE, SELFPAY | PROVIDERS: Admitting Provider Physician Assistant Medical; Emergency Provider Emergency Medicine; PCP Internal Medicine; Visit Provider Nurse Practitioner Psychiatric/Mental Health | DX: F39 Unspecified mood [affective] disorder (principal); R45.86 Emotional lability | CPT/HCPCS: 99232 ==